=== PATIENT | female | born 1970 ===

== ENCOUNTER 2019-12-26 13:29 | Outpatient (REF) | payer OTHER, MEDICAID, SELFPAY | END 2019-12-26 13:30 | disposition home or self-care (01) | LOC: HO.LAB 13:29 | PROVIDERS: Visit Provider Internal Medicine | DX: Z20.828 Contact with and (suspected) exposure to other viral communicable diseases (principal) | CPT/HCPCS: U0003 ==

== ENCOUNTER → 2020-02-19 09:29 | Outpatient (BNVA) | payer OTHER, MEDICAID, SELFPAY | PROVIDERS: PCP Internal Medicine Geriatric Medicine; Visit Provider Anesthesiology | DX: Z76.89 Persons encountering health services in other specified circumstances (principal) ==

== ENCOUNTER 2020-03-05 06:15 | Outpatient (REF) | payer OTHER, MEDICARE, MEDICAID, SELFPAY ==
--- NOTE | 2020-03-05 08:22 | FL_ITS ---
EXAMINATION: XR FLUOROSCOPY WITH IMAGES CLINICAL INFORMATION: M46.1 - Sacroiliitis COMPARISON: None. TECHNIQUE: Fluoroscopy performed by Yumiko Oliver NP. Fluoroscopy time: 0.5 minutes DAP: 1.68 Gycm2 Images: 7 FINDINGS: There are spinal needles overlying outer aspect right L3-4 and L5 neural foramen with contrast in the nerve sheath. There are 2 spinal needles overlying the upper right sacral wing. FL/FL guidance in treatment room IMPRESSION: Fluoroscopy for pain management procedures.
== END 2020-03-05 06:16 | disposition home or self-care (01) ==
LOC: HO.RADIR 06:15
PROVIDERS: Visit Provider Anesthesiology
DX: M46.1 Sacroiliitis, not elsewhere classified (principal)
CPT/HCPCS: 64451; Q9967

== ENCOUNTER → 2020-03-14 09:26 | Outpatient (BNVA) | payer OTHER, MEDICAID, SELFPAY | PROVIDERS: PCP Internal Medicine Geriatric Medicine; Visit Provider Anesthesiology ==

== ENCOUNTER 2020-03-29 13:27 | Outpatient (RCR) | payer OTHER, MEDICAID, SELFPAY | END 2020-03-29 14:26 | disposition home or self-care (01) | LOC: HO.PAOS 13:27 | PROVIDERS: Referring Provider Anesthesiology; Visit Provider Counselor Mental Health | DX: F43.20 Adjustment disorder, unspecified (principal) | CPT/HCPCS: 90791 ==

== ENCOUNTER → 2020-04-15 13:50 | Outpatient (BNVA) | payer MEDICARE, MEDICAID, SELFPAY | PROVIDERS: PCP Internal Medicine Geriatric Medicine; Visit Provider Advanced Practice Midwife ==

== ENCOUNTER 2020-05-08 10:35 | Outpatient (REF) | payer MEDICARE, MEDICAID, SELFPAY ==
--- NOTE | ~2020-05-08 | US_ITS ---
EXAMINATION: ULTRASOUND PELVIS COMPLETE CLINICAL INFORMATION: Follow-up pulmonary mass. COMPARISON: None TECHNIQUE: Transabdominal and transvaginal ultrasound of the pelvis is performed. FINDINGS: The uterus is retroverted measuring 9.2 cm in length, 4.3 cm in AP and 5.1 cm in transverse dimension. The endometrial thickness is 0.6 cm. There are at least 3 hypoechoic lesions. 1. Lesion in the right lower uterine body measures 1.8 x 1.8 x 1.8 cm. Previously it measured 1.6 1.4 x 1.5 cm. 2. Lesion in the upper right uterine body measures 1.3 x 0.9 x 1.0 cm. Previously it measured 1.7 x 1.6 x 1.6 cm. 3. Lesion in the left body of the uterus measures 2.0 1.6 x 1.5 cm. Previously it measured 0.6 x 0.9 1.0 cm. There are several anechoic nabothian cysts in the cervix. The right ovary measures 3.2 x 2.3 x 1.6 cm and volume is 6.2 mL. The ovaries are unremarkable. Previously it measured 3.0 x 2.7 x 2.3 cm. The left ovary measures 6.4 x 3.2 x 3.0 cm and volume is 32.2 mL. There are 2 solid-appearing lesions. A 2.5 x 1.8 x 2.4 cm, 1.7 x 1.2 x 1.9 cm and a simple cyst measuring 2.7 x 2.0 x 2.1 cm. There is a corpus luteal cyst measuring 2.1 x 1.5 x 1.6 cm. There is small amount of free fluid in cul-de-sac. US/US pelvic complete IMPRESSION: Multiple uterine fibroids as described above with minimal increase in size of these fibroids. 2 solid lesions likely endometrioma/complex cysts, simple cyst and corpus luteal cyst left ovary.
== END 2020-05-08 10:36 | disposition home or self-care (01) ==
LOC: HO.US 10:35
PROVIDERS: Visit Provider Advanced Practice Midwife
DX: Z87.42 Personal history of other diseases of the female genital tract (principal)
CPT/HCPCS: 76830; 76856

== ENCOUNTER 2020-05-30 13:25 | Outpatient (REF) | payer MEDICARE, MEDICAID, SELFPAY ==
[2020-05-31 07:51] LABS: Follicle Stimulating Hormone 14.5 mIU/mL
== END 2020-05-30 13:26 | disposition home or self-care (01) ==
LOC: HO.LAB 13:25
PROVIDERS: PCP Internal Medicine Geriatric Medicine; Visit Provider Advanced Practice Midwife
DX: R10.2 Pelvic and perineal pain (principal); N95.1 Menopausal and female climacteric states; D21.9 Benign neoplasm of connective and other soft tissue, unspecified; Z71.2 Person consulting for explanation of examination or test findings
CPT/HCPCS: 36415; 83001; 99212

== ENCOUNTER 2020-08-02 05:59 | Day surgery (SDC) | payer MEDICARE, MEDICAID, SELFPAY ==
[2020-07-29 13:05] VITALS: BMI 27.4
--- NOTE | 2020-08-01 09:13 | P.CONAN_ITS ---
Documented by User: Yisel Collins 08/01/20 09:14 HPI - Anesthesia Eval Consult details Narrative: 50yo F for Right Peripheral Nerve Stimulator Trial PMFSH Active Problems Active Problems: All Active Problems (Updated 07/29/20 @ 13:09 by Zelda Valencia) Encounter to discuss test results (Acute) Fibroids (Acute) Pelvic pain in female (Acute) Migraine with aura (Acute) Chronic pain syndrome (Acute) Sacroiliitis (Acute) Low back pain (Acute) Spondylosis of lumbosacral spine without myelopathy (Acute) Past Medical History Medical History Anxiety Asthma Chronic pain syndrome Diabetes Endometrioma of ovary GERD (gastroesophageal reflux disease) Low back pain Migraine with aura Sacroiliitis Spondylosis of lumbosacral spine without myelopathy Vertigo Family History Family History Maternal Aunt Breast cancer Surgical History Surgical History Hx of section Hx of tubal ligation Social History Social History Household Members: Significant Other and Family Alcohol intake: never Patient Tobacco Use Status: Never used Tobacco Are you DNR?: No Advance Directives: No Advance Directives Information Provided: No Patient : No FDLMP: 07/05/2020 : No Poor oral hygiene: No Meds Allergies Allergy/AdvReac Type Severity Reaction Status Date / Time No Known Allergies Allergy Verified 07/29/20 13:09 [No Known Allergies*] Home Medications Medication Instructions Recorded Confirmed Last Taken Type glipizide 2.5 mg-metformin 500 mg 1 tab PO DAILY 04/15/20 07/29/20 Unknown History tablet loratadine 10 mg tablet 10 mg PO DAILY 04/15/20 07/29/20 Unknown History meclizine 25 mg tablet 25 mg PO TID PRN 04/15/20 07/29/20 Unknown History omeprazole 20 mg capsule,delayed 40 mg PO DAILY 04/15/20 07/29/20 Unknown History release pravastatin 40 mg tablet 40 mg PO DAILY 04/15/20 07/29/20 Unknown History tramadol 50 mg tablet 50 mg PO Q12H PRN 04/15/20 07/29/20 Unknown History albuterol sulfate INHALATION 07/29/20 Unknown History fluticasone propionate [Flovent 1 PO BID 07/29/20 Unknown History HFA] Exam Exam Date and Time: August 01, 2020912 Height,Weight and Vital Signs: Height 5 ft 2 in Weight 68.039 kg Assessment and Plan Assessment Anesthesia Assessment: Chart Reviewed Documented by User: Adrienne Vega 08/02/20 07:14 [facility] Past Medical History Medical History Anxiety Asthma Chronic pain syndrome Diabetes Endometrioma of ovary GERD (gastroesophageal reflux disease) Low back pain Migraine with aura Sacroiliitis Spondylosis of lumbosacral spine without myelopathy Vertigo Family History Family History Maternal Aunt Breast cancer Family history of problems with anesthesia: No Surgical History Surgical History Hx of section Hx of tubal ligation History of Problems with Anesthesia: No Social History Social History Household Members: Significant Other and Family Alcohol intake: never Patient Tobacco Use Status: Never used Tobacco Are you DNR?: No Advance Directives: No Advance Directives Information Provided: No Patient : No FDLMP: 07/05/2020 : No Poor oral hygiene: No Meds Allergies Allergy/AdvReac Type Severity Reaction Status Date / Time No Known Allergies Allergy Verified 07/29/20 13:09 [No Known Allergies*] Home Medications Medication Instructions Recorded Confirmed Last Taken Type glipizide 2.5 mg-metformin 500 mg 1 tab PO DAILY 04/15/20 07/29/20 Unknown History tablet loratadine 10 mg tablet 10 mg PO DAILY 04/15/20 07/29/20 Unknown History meclizine 25 mg tablet 25 mg PO TID PRN 04/15/20 07/29/20 Unknown History omeprazole 20 mg capsule,delayed 40 mg PO DAILY 04/15/20 07/29/20 Unknown History release pravastatin 40 mg tablet 40 mg PO DAILY 04/15/20 07/29/20 Unknown History tramadol 50 mg tablet 50 mg PO Q12H PRN 04/15/20 07/29/20 Unknown History albuterol sulfate INHALATION 07/29/20 Unknown History fluticasone propionate [Flovent 1 PO BID 07/29/20 Unknown History HFA] Exam Height,Weight and Vital Signs: Vital Signs Temp Pulse Resp BP Pulse Ox 08/02/20 06:25 97.4 F 68 16 117/68 98 Pertinent Lab Results Pertinent Lab Results: Lab Results 08/02/20 Range/Units 06:42 POC Glucose 157 H (60-115) mg/dL Airway Mallampati Class: II TM Dist: >3cm Neck ROM: Full Partial: Upper Loose/Missing/Broken Teeth: Yes (Broken molars bottom right) Heart: RRR Lungs: CTAB Assessment and Plan Assessment Anesthesia Assessment: Anesthesia Plan Discussed and Chart Reviewed Final Anesthetic Review NPO: Yes ASA Class: II Final Preanesthetic Review: No Changes in Pt Med Stat, Meds/Allgs Chart Reviewed, Consent Obtained/Reviewed and Anes Risks/Benef Reviewed Patient Risk: Low Procedure Risk: Low Assessment/Block/Sedation in SS: Assess/Block/Sedation-SS Anesthetic Plan Anesthetic Plan: MAC: Disposition: Standard PACU
--- NOTE | ~2020-08-02 | FL_ITS ---
EXAMINATION: XR FLUOROSCOPY WITH IMAGES CLINICAL INFORMATION: Peripheral nerve stimulator trial COMPARISON: None. TECHNIQUE: Fluoroscopy performed by Dr. Arben Hanson. Fluoroscopy time: 0.3 minutes DAP: 2.89 mGycm2 Images: 2 FINDINGS: The 2 digital images obtained of the lumbosacral junction. There is a solitary electrode extending in a craniocaudad direction inferiorly likely in the sacral canal. Visualized bones and the soft tissues are normal. FL/FL guidance in OR IMPRESSION: Fluoroscopy was provided to Dr. Arben Hanson during the procedure
[2020-08-02 06:25] VITALS: BP 117/68; PULSE 68; RESP 16; TEMP 36.3; O2SAT 98
[2020-08-02] MEDS: Lactated Ringers 1,000 ML 100 ML IVCONT (06:46)
[2020-08-02 06:49] LABS: Glucose, Whole Blood 157 mg/dL (60-115)
--- NOTE | 2020-08-02 07:16 | MHC.SHP ---
Pre-Procedural Eval Section A The patient is an INPATIENT: No Changes since office visit: Yes Patient answered all questions The History & Physical has been completed within 30 days and I have reviewed it.: No Section B Chief Complaint: Sacroiliitis Details of Present Illness: as above Relevant Family History (Specify if Yes): No Relevant Social History: None Present Medications: None History of Previous Operations: No relevant previous surgery Allergies: Allergies Allergy/AdvReac Type Severity Reaction Status Date / Time No Known Allergies Allergy Verified 07/29/20 13:09 [No Known Allergies*] Review of Systems Sugical H&P ROS: Negative: Constitution, Cardiovascular, Respiratory, Neurological, Psychiatric, Hem-Onc, Allergic/Immunologic, Gastrointestinal, Genitourinary, Musculoskeletal, Integumentary, Endocrine and Eyes/Ears/Nose/Throat Exam Surgical H&P Exam: Normal: HEENT, Normal: Heart, Normal: Lungs, Normal: Extremities, Normal: Abdomen, Normal: Skin and Normal: Neurological Plan Diagnosis/Plan: Unchanged I have reviewed the history and physical and performed a pertinent physical examination on my patient. No changes have occurred unless specified.
--- NOTE | 2020-08-02 07:17 | PM.OP ---
Brief Operative Note Date of Service: 08/02/20 Pre-op diagnosis: sacroilitis Post-op diagnosis: same Procedure: Trial of a stimwave SI joint innervation stimulation - Right Implants: none permanent Surgeon: Arben Hanson MD Anesthesia: MAC Was an Supervisor Electronics Testing used for this Procedure?: No Estimated blood loss (mL): 1 Condition: stable Disposition: PACU
--- NOTE | 2020-08-02 07:20 | P.OP_ITS ---
Operative Note Operative Note Date of Service: 08/02/20 Narrative: Informed consent was explained thoroughly to the patient. All questions about benefits and risks for the procedure were answered. Patient came to the operating room she was positioned prone on the operating table with the pillow under her pelvis. [employer] monitors were applied and patient was deeply sedated. Time out was performed delineated correct name and of the patient, site, side and nature of the procedure, risks of DVT and fire need for antibiotics. Her lower back and buttocks was prepped with ChloraPrep twice, and draped with sterile towels. Sterilely draped C-arm was brought over the operating field and sq picture of patient's pelvis was demonstrated on the screen. Attention was concentrated on the right SI joint. Significant instability of the right sacroiliac joint was again noted on the screen. Inflammatory reaction in the sacral and iliac bones alongside the margins of the joint evident of sacroiliac joint pathology were again seen on the screen. The sacral ala on the right was chosen as a target of the needle insertion. 3 cm above the sacral ala projection in the lumbar area injection of the local anesthetic was performed in the skin. Using 11 blade scalpel small verena in the skin was performed. 16 gauge introducer simwave malleable needle needle was inserted through the verena and advanced to were the sacral alae on the right. After needle met the bone on sacral ala it was redirected slightly posterior and continued to advance alongside the curvature of the sacral bone. When the tip of the needle reached the end of the projection of the sacroiliac joint inferiorly advancement stops and guitar wire was introduced into the needle. It went through the needle without difficulties. After that 8 electrode stimulating array lead was inserted through the needle and advanced to the desired position. The needle was removed and care was taken not to dislodge the leads. The driving stylet was removed from the lead and it was replaced with stimulating copper wire antenna electrode. After that the knot was tied just below the level of the 2nd antenna electrode. Mastisol was applied to the skin a and Steri-Strips was used to fix the stimulating lead to the skin. Sterile dressing applied stimulating pad was applied and taped to the skin using Medipore tape Upon completion of the procedure the patient was awaken she was taking outside of the operating room to recovery room where she recovered uneventfully. She went home without immediate complications.
[2020-08-02 08:27] VITALS: BP 117/71; PULSE 92; RESP 14; TEMP 36.2; O2SAT 100
[2020-08-02 08:44] VITALS: BP 130/75; PULSE 77; RESP 18; O2SAT 99
[2020-08-02 08:59] VITALS: BP 129/63; PULSE 71; RESP 17; O2SAT 100
== END 2020-08-02 09:47 | disposition home or self-care (01) ==
PROVIDERS: PCP Internal Medicine Geriatric Medicine; Visit Provider Anesthesiology
PROC: (CPT 64555; principal; 2020-08-02 07:30)
DX: M46.1 Sacroiliitis, not elsewhere classified (principal); G89.4 Chronic pain syndrome; M54.5 Low back pain
CPT/HCPCS: 64555; 82947; C1816; J0690; J1100; J2405

== ENCOUNTER 2020-08-06 12:29 | Outpatient (REF) | payer MEDICARE, MEDICAID, SELFPAY ==
--- NOTE | ~2020-08-06 | MM_ITS ---
EXAMINATION: MM SCREENING DIGITAL BREAST TOMOSYNTHESIS, BILATERAL CLINICAL INFORMATION: Screening. Asymptomatic. The lifetime risk of breast cancer based on the Tyrer-Cuzick Model is 9%. COMPARISON: Mammography: 09/13/2018, 08/05/2016, 06/18/2015, 08/02/2014 TECHNIQUE: Digital breast tomosynthesis is performed in both the craniocaudal and mediolateral oblique views along with computer-aided detection (CAD). Synthesized 2D images are generated from the tomosynthesis. FINDINGS: There are scattered areas of fibroglandular density (ACR BI-RADS breast composition Category b). Parenchymal pattern is similar to prior studies. There is no developing density or interval mass or architectural abnormality. No abnormal calcifications. Biopsy clip marker again noted anterior 12:30 o'clock left breast overlying stable circumscribed nodule. The axilla and skin contours are unremarkable. No significant changes. MM/MM tomosynthesis screening BI IMPRESSION: No mammographic evidence of malignancy. ASSESSMENT: BI-RADS 2: Benign RECOMMENDATION: Routine annual mammography screening. This patient's information was entered into a reminder system with a target due date for their next mammogram.
== END 2020-08-06 12:30 | disposition home or self-care (01) ==
LOC: HO.MAMMO 12:29
PROVIDERS: Visit Provider Internal Medicine Geriatric Medicine
DX: Z12.31 Encounter for screening mammogram for malignant neoplasm of breast (principal)
CPT/HCPCS: 77063; 77067

== ENCOUNTER → 2020-08-08 10:31 | Outpatient (BNVA) | payer MEDICARE, MEDICAID, SELFPAY | PROVIDERS: PCP Internal Medicine Geriatric Medicine; Visit Provider Anesthesiology | DX: M47.817 Spondylosis without myelopathy or radiculopathy, lumbosacral region (principal); M54.5 Low back pain; M46.1 Sacroiliitis, not elsewhere classified; G89.4 Chronic pain syndrome | CPT/HCPCS: 99212 ==

== ENCOUNTER → 2020-08-20 12:14 | Outpatient (BNVA) | payer MEDICARE, MEDICAID, SELFPAY | PROVIDERS: Visit Provider Advanced Practice Midwife | DX: Z30.011 Encounter for initial prescription of contraceptive pills (principal); N94.6 Dysmenorrhea, unspecified; D21.9 Benign neoplasm of connective and other soft tissue, unspecified; Z71.2 Person consulting for explanation of examination or test findings | CPT/HCPCS: Q3014 ==

== ENCOUNTER 2021-01-22 11:21 | Outpatient (REF) | payer MEDICARE, MEDICAID, SELFPAY ==
[2021-01-22 12:57] LABS: Hematocrit 38.5 % (37.0-47.0); Hemoglobin 12.2 g/dl (12.0-16.0); Mean Corpuscular HGB Conc 31.7 g/dl (31.0-35.0); Mean Corpuscular Hemoglobin 27.7 pg (27.0-33.0); Mean Corpuscular Volume 87.5 fL (80.0-98.0); Mean Platelet Volume 12.4 fL (9.4-12.3); Platelet Count 240 X10*3/uL (160-400); Red Cell Distribution Width 15.4 % (11.0-16.0); White Blood Count 6.6 X10*3/uL (4.8-10.8)
[2021-01-22 13:23] LABS: Alanine Aminotransferase 16 U/L (0-31); Albumin Level 3.8 g/dL (3.5-5.0); Alkaline Phosphatase 76 U/L (39-117); Anion Gap 15 (12-20); Aspartate Amino Transferase 16 U/L (5-31); Bilirubin Total 0.4 mg/dL (0.0-1.0); Blood Urea Nitrogen 10 mg/dL (9-16); Calcium 9.4 mg/dL (8.4-10.2); Carbon Dioxide 25 mmol/L (22-29); Chloride 103 mmol/L (96-108); Estimated Glomerular Filt Rate > 60; Glucose Random 282 mg/dL (60-115); Potassium 4.5 mmol/L (3.3-5.1); Sodium 138 mmol/L (135-145); Total Protein 7.3 g/dL (6.5-8.0)
[2021-01-22 13:43] LABS: TSH reflex Free T4 1.72 uIU/mL (0.32-4.0)
[2021-01-22 13:55] LABS: Folate 14.2 ng/mL (> or = 4.0); Vitamin B12 470 pg/mL (200-900)
[2021-01-27 14:51] LABS: Vitamin D 25-OH, D2 <4 ng/mL; Vitamin D 25-OH, D3 19 ng/mL; Vitamin D 25-OH, Total 19 ng/mL (30-100)
== END 2021-01-22 11:22 | disposition home or self-care (01) ==
LOC: HO.LAB 11:21
PROVIDERS: PCP Internal Medicine Geriatric Medicine; Referring Provider Internal Medicine Geriatric Medicine; Visit Provider Nurse Practitioner Family
DX: K58.1 Irritable bowel syndrome with constipation (principal); K59.04 Chronic idiopathic constipation; K21.9 Gastro-esophageal reflux disease without esophagitis; Z79.899 Other long term (current) drug therapy
CPT/HCPCS: 36415; 80053; 82306; 82607; 82746; 84443; 85027; 99202

== ENCOUNTER 2021-02-24 12:23 | Outpatient (REF) | payer MEDICARE, MEDICAID, SELFPAY | END 2021-02-24 12:24 | disposition home or self-care (01) | LOC: HO.LNP 12:23 | PROVIDERS: Visit Provider Nurse Practitioner Family | DX: K21.9 Gastro-esophageal reflux disease without esophagitis (principal) | CPT/HCPCS: 87338 ==

== ENCOUNTER → 2021-02-25 13:32 | Outpatient (BNVA) | payer MEDICARE, MEDICAID, SELFPAY | PROVIDERS: PCP Internal Medicine Geriatric Medicine; Referring Provider Internal Medicine Geriatric Medicine; Visit Provider Nurse Practitioner Family | DX: K58.2 Mixed irritable bowel syndrome (principal); K59.00 Constipation, unspecified; K21.9 Gastro-esophageal reflux disease without esophagitis | CPT/HCPCS: 99212 ==

== ENCOUNTER → 2021-04-01 12:54 | Outpatient (BNVA) | payer MEDICARE, MEDICAID, SELFPAY | PROVIDERS: PCP Internal Medicine Geriatric Medicine; Referring Provider Internal Medicine Geriatric Medicine; Visit Provider Nurse Practitioner Family | DX: Z12.11 Encounter for screening for malignant neoplasm of colon (principal); K58.2 Mixed irritable bowel syndrome; K59.01 Slow transit constipation; K21.9 Gastro-esophageal reflux disease without esophagitis | CPT/HCPCS: 99212 ==

== ENCOUNTER 2021-05-28 12:55 | Outpatient (REF) | payer MEDICARE, MEDICAID, SELFPAY ==
[2021-05-28 14:31] LABS: Hematocrit 39.2 % (37.0-47.0); Hemoglobin 12.7 g/dl (12.0-16.0); Mean Corpuscular HGB Conc 32.4 g/dl (31.0-35.0); Mean Corpuscular Hemoglobin 27.6 pg (27.0-33.0); Mean Corpuscular Volume 85.2 fL (80.0-98.0); Platelet Count 259 X10*3/uL (160-400); Red Cell Distribution Width 14.8 % (11.0-16.0); White Blood Count 8.1 X10*3/uL (4.8-10.8)
[2021-05-28 15:33] LABS: Thyroid Stimulating Hormone 1.74 uIU/mL (0.32-4.0)
[2021-05-29 03:59] LABS: CT PCR NOT DETECTED (Not Detect.); NG PCR NOT DETECTED (Not Detect.)
[2021-05-29 13:12] LABS: BV Int Neg Control Negative (Negative); BV Int Pos Control Positive (Positive)
[2021-05-30 02:41] LABS: Follicle Stimulating Hormone 58.1 mIU/mL
[2021-05-31 03:12] LABS: HPV mRNA E6/E7 rflx Not Detected (Not Detected)
== END 2021-05-28 12:56 | disposition home or self-care (01) ==
LOC: HO.LAB 12:55
PROVIDERS: PCP Internal Medicine Geriatric Medicine; Visit Provider Advanced Practice Midwife
DX: Z01.411 Encounter for gynecological examination (general) (routine) with abnormal findings (principal); Z11.51 Encounter for screening for human papillomavirus (HPV); N93.9 Abnormal uterine and vaginal bleeding, unspecified; Z20.2 Contact with and (suspected) exposure to infections with a predominantly sexual mode of transmission; R23.2 Flushing; N92.1 Excessive and frequent menstruation with irregular cycle
CPT/HCPCS: 36415; 83001; 84443; 85027; 87480; 87491; 87510; 87591; 87624; 87660; 88142

== ENCOUNTER 2021-06-19 10:52 | Outpatient (REF) | payer MEDICARE, MEDICAID, SELFPAY ==
--- NOTE | ~2021-06-19 | US_ITS ---
EXAMINATION: US PELVIS CLINICAL INFORMATION: Abnormal uterine and vaginal bleeding. COMPARISON: 05/08/2020 TECHNIQUE: Ultrasound of the pelvis is performed using both transabdominal and transvaginal transducers along with Doppler. Transvaginal imaging is performed due to inadequate visualization transabdominally. FINDINGS: Uterus: The uterus is retroverted and measures 8.9 x 3 x 3.9 cm. Nabothian cysts at the cervix. The double wall endometrial thickness is 0.3 mm. Trace fluid in the endometrial canal. The uterus is smooth in contour and has normal myometrial echogenicity. Multiple uterine fibroids are again noted. 1. Left body measuring 1.7 x 1.3 x 2 cm. This is hypoechoic. 2. Right fundal hypoechoic measuring 0.6 x 0.3 x 0.3 cm. 3. Lower uterine segment somewhat hyperechoic measuring 1.5 x 1.7 x 1.4 cm. Adnexa: Both ovaries are visualized. There is normal color flow to the adnexa. There is no ovarian torsion. There is no pelvic ascites or fluid collection. Normal arterial and venous spectral waveforms bilaterally. Right ovary measures 2.6 x 1.6 x 2.4 cm. Left ovary measures 4.4 x 2.3 x 2.9 cm. There are 2 cysts at the left ovary measuring 2.7 cm and 2.5 cm. These have internal echoes. No Doppler vascularity. The previous solid-appearing lesions are not visualized at this time. US/US pelvic and transvaginal IMPRESSION: No ovarian torsion. Uterine fibroids are again noted, likely without significant change from previous ultrasound. There are 2 left ovarian cysts again noted with internal echoes. No solid ovarian lesion seen at this time.
== END 2021-06-19 10:53 | disposition home or self-care (01) ==
LOC: HO.US 10:52
PROVIDERS: Visit Provider Advanced Practice Midwife
DX: N93.9 Abnormal uterine and vaginal bleeding, unspecified (principal)
CPT/HCPCS: 76830; 76856

== ENCOUNTER → 2021-06-30 13:20 | Outpatient (BNVA) | payer MEDICARE, MEDICAID, SELFPAY | PROVIDERS: PCP Internal Medicine Geriatric Medicine; Referring Provider Internal Medicine Geriatric Medicine; Visit Provider Nurse Practitioner Family | DX: Z12.11 Encounter for screening for malignant neoplasm of colon (principal); K21.9 Gastro-esophageal reflux disease without esophagitis; K59.01 Slow transit constipation; R13.10 Dysphagia, unspecified | CPT/HCPCS: 99212 ==

== ENCOUNTER 2021-09-09 12:34 | Outpatient (REF) | payer MEDICARE, MEDICAID, SELFPAY | END 2021-09-09 12:35 | disposition home or self-care (01) | LOC: HO.LAB 12:34 | PROVIDERS: PCP Internal Medicine Geriatric Medicine; Visit Provider Advanced Practice Midwife | DX: Z32.02 Encounter for pregnancy test, result negative (principal); N93.9 Abnormal uterine and vaginal bleeding, unspecified; N83.299 Other ovarian cyst, unspecified side; Z71.2 Person consulting for explanation of examination or test findings | CPT/HCPCS: 58100; 81025; 88305 ==

== ENCOUNTER 2021-09-19 13:32 | Outpatient (REF) | payer MEDICARE, MEDICAID, SELFPAY ==
--- NOTE | ~2021-09-19 | MR_ITS ---
EXAMINATION: MRI PELVIS WITH AND WITHOUT CONTRAST CLINICAL INFORMATION: Reason for Exam N83.299 - Other ovarian cyst, PAIN COMPARISON: Pelvic ultrasound 06/11/2021 TECHNIQUE: Multiple routine MRI sequences through the pelvis were obtained before and after the uneventful administration of 7 mL of Gadavist gadolinium-based IV contrast. FINDINGS: UTERUS: Retroverted uterus has a normal configuration and measures 4.7 x 4.5 x 5.2 cm ([id number] x anterior-posterior x transverse). Endometrium is uniform and measures 0.3 cm in thickness. No junctional zone thickening. Several T2 hypointense homogeneously enhancing subserosal and intramural myomas, the largest is a 2.6 cm myoma in the right aspect of the lower uterine segment. CERVIX: Nabothian cysts in the cervix. VAGINA: Unremarkable. OVARIES: The right ovary is unremarkable, 7:14. There is a multiloculated predominantly T1 hyperintense cystic lesion in the left ovary measuring overall 3.9 x 2.1 cm compatible with an endometrioma with a T2 hypointense shading sign. KIDNEYS: Two normally positioned kidneys are seen. No hydronephrosis. BLADDER: Unremarkable. PELVIC FREE FLUID: No free fluid or ascites. LYMPH NODES: No pathologically enlarged lymph nodes. OSSEOUS STRUCTURES: No acute or suspicious osseous abnormalities. MR/MR pelvis wo/w con IMPRESSION: A 3.9 cm left ovarian endometrioma. Several subserosal and intramural uterine myomas, the largest a 2.6 cm myoma in the right aspect of the lower uterine segment.
== END 2021-09-19 13:33 | disposition home or self-care (01) ==
LOC: HO.MRI 13:32
PROVIDERS: Visit Provider Advanced Practice Midwife
DX: N83.292 Other ovarian cyst, left side (principal); N80.1 Endometriosis of ovary
CPT/HCPCS: 72197; A9585

== ENCOUNTER → 2021-11-03 15:46 | Outpatient (BNVA) | payer MEDICARE, MEDICAID, SELFPAY | PROVIDERS: PCP Internal Medicine Geriatric Medicine; Visit Provider Anesthesiology | DX: G89.4 Chronic pain syndrome (principal); M54.50 Low back pain, unspecified; M47.817 Spondylosis without myelopathy or radiculopathy, lumbosacral region; M46.1 Sacroiliitis, not elsewhere classified | CPT/HCPCS: 99212 ==

== ENCOUNTER 2021-11-11 10:09 | Outpatient (REF) | payer MEDICARE, MEDICAID, SELFPAY ==
[2021-11-13 10:36] LABS: CA-125 37 U/mL (<35)
== END 2021-11-11 10:10 | disposition home or self-care (01) ==
LOC: HO.LAB 10:09
PROVIDERS: PCP Internal Medicine Geriatric Medicine; Visit Provider Advanced Practice Midwife
DX: N83.299 Other ovarian cyst, unspecified side (principal); N80.1 Endometriosis of ovary; Z71.2 Person consulting for explanation of examination or test findings
CPT/HCPCS: 36415; 86304; 99212

== ENCOUNTER 2021-11-14 10:22 | Day surgery (SDC) | payer MEDICARE, MEDICAID, SELFPAY ==
[2021-11-12 08:15] VITALS: BMI 27.8
--- NOTE | 2021-11-13 09:48 | HO.ANESPROP2 ---
Documented by User: Yisel Collins NP 11/13/21 09:49 HPI - Anesthesia Eval Consult details Narrative: 51yo F for Colonoscopy PMFSH Active Problems Active Problems: All Active Problems (Updated 11/12/21 @ 08:14 by Sury Salguero RN) Encounter to discuss test results (Acute) Fibroids (Acute) Pelvic pain in female (Acute) Dysmenorrhea (Acute) Complex ovarian cyst (Acute) Endometrioma of ovary (Acute) Migraine with aura (Acute) Chronic pain syndrome (Acute) Sacroiliitis (Acute) Low back pain (Acute) Spondylosis of lumbosacral spine without myelopathy (Acute) Past Medical History Medical History Anxiety Asthma Chronic pain syndrome Diabetes Endometrioma of ovary GERD (gastroesophageal reflux disease) Low back pain Migraine with aura S/P placement of nerve stimulator Sacroiliitis Spondylosis of lumbosacral spine without myelopathy Vertigo Family History Family History Maternal Aunt Breast cancer Family history of problems with anesthesia: No Surgical History Surgical History History of esophagogastroduodenoscopy (EGD) Hx of section Hx of tubal ligation History of Problems with Anesthesia: No Social History Social History Household Members: Significant Other and Family Are you a primary patient care specialist to a significant other at home: No Do you presently have visiting nurse or other home services: No Alcohol intake: never Patient Tobacco Use Status: Never used Tobacco Use of substances other than those prescribed or required for medical reasons: No Have you been hit, kicked, punched, or otherwise hurt by someone within the past year? If so, by whom?: No Are you DNR?: No Advance Directives: No Advance Directives Information Provided: Yes Recently lost weight without trying: No Nutrition Risks: No Nutritional Risk Patient : No Meds Allergies Allergy/AdvReac Type Severity Reaction Status Date / Time No Known Allergies Allergy Verified 11/11/21 09:47 [No Known Allergies*] Home Medications Medication Instructions Recorded Confirmed Last Taken Type glipizide 2.5 mg-metformin 500 mg 1 tab PO DAILY 04/15/20 07/29/20 Unknown History tablet loratadine 10 mg tablet 10 mg PO DAILY 04/15/20 07/29/20 Unknown History meclizine 25 mg tablet 25 mg PO TID PRN Vertigo 04/15/20 07/29/20 Unknown History tramadol 50 mg tablet 50 mg PO Q12H PRN Pain 04/15/20 07/29/20 Unknown History albuterol sulfate 90 mcg/actuation inhalation 07/29/20 Unknown History aerosol inhaler fluticasone propionate 110 1 PO BID 07/29/20 Unknown History mcg/actuation HFA aerosol inhaler (Flovent HFA) blood sugar diagnostic (OneTouch #10 ea 01/22/21 Unknown History Ultra Test strips) ferrous sulfate 325 mg (65 mg 325 mg PO DAILY 01/22/21 Unknown History iron) tablet fluticasone propionate 50 spray intranasal 01/22/21 Unknown History mcg/actuation nasal spray,suspension hydroxyzine HCl 25 mg tablet 25 mg PO DAILY 02/25/21 Unknown History naproxen 500 mg tablet 500 mg PO BID 06/30/21 Unknown History Exam Exam Date and Time: November 13, 2021 0948 Height,Weight and Vital Signs: Height 5 ft 2 in Weight 68.946 kg Assessment and Plan Assessment Anesthesia Assessment: Chart Reviewed Final Anesthetic Review Family History of Problems with Anesthesia: No History of Problems with Anesthesia: No Documented by User: Aidee Ontiveros MD 11/14/21 11:28 [facility] Past Medical History Medical History Anxiety Asthma Chronic pain syndrome Diabetes Endometrioma of ovary GERD (gastroesophageal reflux disease) Low back pain Migraine with aura S/P placement of nerve stimulator Sacroiliitis Spondylosis of lumbosacral spine without myelopathy Vertigo Family History Family History Maternal Aunt Breast cancer Surgical History Surgical History History of esophagogastroduodenoscopy (EGD) Hx of section Hx of tubal ligation Social History Social History Household Members: Significant Other and Family Are you a primary patient care specialist to a significant other at home: No Do you presently have visiting nurse or other home services: No Alcohol intake: never Patient Tobacco Use Status: Never used Tobacco Use of substances other than those prescribed or required for medical reasons: No Have you been hit, kicked, punched, or otherwise hurt by someone within the past year? If so, by whom?: No Are you DNR?: No Advance Directives: No Advance Directives Information Provided: Yes Recently lost weight without trying: No Nutrition Risks: No Nutritional Risk Patient : No Meds Allergies Allergy/AdvReac Type Severity Reaction Status Date / Time No Known Allergies Allergy Verified 11/11/21 09:47 [No Known Allergies*] Home Medications Medication Instructions Recorded Confirmed Last Taken Type glipizide 2.5 mg-metformin 500 mg 1 tab PO DAILY 04/15/20 07/29/20 Unknown History tablet loratadine 10 mg tablet 10 mg PO DAILY 04/15/20 07/29/20 Unknown History meclizine 25 mg tablet 25 mg PO TID PRN Vertigo 04/15/20 07/29/20 Unknown History tramadol 50 mg tablet 50 mg PO Q12H PRN Pain 04/15/20 07/29/20 Unknown History albuterol sulfate 90 mcg/actuation inhalation 07/29/20 Unknown History aerosol inhaler fluticasone propionate 110 1 PO BID 07/29/20 Unknown History mcg/actuation HFA aerosol inhaler (Flovent HFA) blood sugar diagnostic (OneTouch #10 ea 01/22/21 Unknown History Ultra Test strips) ferrous sulfate 325 mg (65 mg 325 mg PO DAILY 01/22/21 Unknown History iron) tablet fluticasone propionate 50 spray intranasal 01/22/21 Unknown History mcg/actuation nasal spray,suspension hydroxyzine HCl 25 mg tablet 25 mg PO DAILY 02/25/21 Unknown History naproxen 500 mg tablet 500 mg PO BID 06/30/21 Unknown History Exam Airway Mallampati Class: II TM Dist: >3cm Neck ROM: Full Partial: Upper Heart: rrr Lungs: cta Assessment and Plan Assessment Anesthesia Assessment: Anesthesia Plan Discussed and Chart Reviewed Final Anesthetic Review NPO: Yes ASA Class: II Final Preanesthetic Review: No Changes in Pt Med Stat, Meds/Allgs Chart Reviewed and Consent Obtained/Reviewed Patient Risk: Intermediate Procedure Risk: Intermediate Anesthetic Plan Anesthetic Plan: MAC: Disposition: Standard PACU
[2021-11-14 11:04] LABS: Glucose, Whole Blood 159 mg/dL (60-115)
[2021-11-14 11:12] VITALS: BP 156/71; PULSE 78; RESP 18; TEMP 37.1; O2SAT 100
[2021-11-14] MEDS: Lactated Ringers 1,000 ML 100 ML IVCONT (11:36)
--- NOTE | 2021-11-14 11:44 | HO.ANESPROP2 ---
COUNTS INCLUDE 234 BEDS AT THE [facility] Active Problems Active Problems: All Active Problems (Updated 11/12/21 @ 08:14 by Sury Salguero RN) Encounter to discuss test results (Acute) Fibroids (Acute) Pelvic pain in female (Acute) Dysmenorrhea (Acute) Complex ovarian cyst (Acute) Endometrioma of ovary (Acute) Migraine with aura (Acute) Chronic pain syndrome (Acute) Sacroiliitis (Acute) Low back pain (Acute) Spondylosis of lumbosacral spine without myelopathy (Acute) Past Medical History Medical History Anxiety Asthma Chronic pain syndrome Diabetes Endometrioma of ovary GERD (gastroesophageal reflux disease) Low back pain Migraine with aura S/P placement of nerve stimulator Sacroiliitis Spondylosis of lumbosacral spine without myelopathy Vertigo Family History Family History Maternal Aunt Breast cancer Family history of problems with anesthesia: No Surgical History Surgical History History of esophagogastroduodenoscopy (EGD) Hx of section Hx of tubal ligation History of Problems with Anesthesia: No Social History Social History Household Members: Significant Other and Family Are you a primary healthcare market consultant to a significant other at home: No Do you presently have visiting nurse or other home services: No Alcohol intake: never Patient Tobacco Use Status: Never used Tobacco Use of substances other than those prescribed or required for medical reasons: No Have you been hit, kicked, punched, or otherwise hurt by someone within the past year? If so, by whom?: No Are you DNR?: No Advance Directives: No Advance Directives Information Provided: Yes Recently lost weight without trying: No Nutrition Risks: No Nutritional Risk Patient : No Meds Allergies Allergy/AdvReac Type Severity Reaction Status Date / Time No Known Allergies Allergy Verified 11/11/21 09:47 [No Known Allergies*] Active Medications: Current Medications Albuterol Sulfate (Albuterol Sulfate (0.083%) 2.5 Mg/3 Ml Vial.Neb) 2.5 mg INHALE ONCE PRN PRN Reason: Shortness of Breath/Wheezing Lactated Ringer's (Lr) 1,000 mls @ 100 mls/hr IVCONT .Q10H RAKESH Last Admin: 11/14/21 11:36 Dose: 100 mls/hr Home Medications Medication Instructions Recorded Confirmed Last Taken Type glipizide 2.5 mg-metformin 500 mg 1 tab PO DAILY 04/15/20 07/29/20 Unknown History tablet loratadine 10 mg tablet 10 mg PO DAILY 04/15/20 07/29/20 Unknown History meclizine 25 mg tablet 25 mg PO TID PRN Vertigo 04/15/20 07/29/20 Unknown History tramadol 50 mg tablet 50 mg PO Q12H PRN Pain 04/15/20 07/29/20 Unknown History albuterol sulfate 90 mcg/actuation inhalation 07/29/20 Unknown History aerosol inhaler fluticasone propionate 110 1 PO BID 07/29/20 Unknown History mcg/actuation HFA aerosol inhaler (Flovent HFA) blood sugar diagnostic (OneTouch #10 ea 01/22/21 Unknown History Ultra Test strips) ferrous sulfate 325 mg (65 mg 325 mg PO DAILY 01/22/21 Unknown History iron) tablet fluticasone propionate 50 spray intranasal 01/22/21 Unknown History mcg/actuation nasal spray,suspension hydroxyzine HCl 25 mg tablet 25 mg PO DAILY 02/25/21 Unknown History naproxen 500 mg tablet 500 mg PO BID 06/30/21 Unknown History Exam Exam Date and Time: November 14, 2021 1144 Height,Weight and Vital Signs: Height 5 ft 2 in Weight 68.946 kg Last Vital Signs Temp 98.8 F 11/14/21 11:12 Pulse 78 11/14/21 11:12 Resp 18 11/14/21 11:12 BP 156/71 H 11/14/21 11:12 Pulse Ox 100 11/14/21 11:12 O2 Del Method 11/14/21 11:12 Pertinent Lab Results Pertinent Lab Results: Laboratory Tests 11/14/21 11:01 POC Glucose 159 H Airway Mallampati Class: II TM Dist: >3cm Neck ROM: Full Partial: Upper Heart: rrr Lungs: cta Assessment and Plan Assessment Anesthesia Assessment: Anesthesia Plan Discussed and Chart Reviewed Final Anesthetic Review Family History of Problems with Anesthesia: No History of Problems with Anesthesia: No NPO: Yes ASA Class: III and Emergency Final Preanesthetic Review: No Changes in Pt Med Stat, Meds/Allgs Chart Reviewed and Consent Obtained/Reviewed Patient Risk: Intermediate Procedure Risk: Intermediate Anesthetic Plan Anesthetic Plan: MAC: Disposition: Standard PACU
--- NOTE | 2021-11-14 12:27 | MHC.SHP ---
Pre-Procedural Eval Section A Date of Service: 11/14/21 The patient is an INPATIENT: No The History & Physical has been completed within 30 days and I have reviewed it.: No Section B Chief Complaint: Slow transit constipation,screening Details of Present Illness: Colon cancer screening, chronic constipation Relevant Family History (Specify if Yes): No Relevant Social History: None Present Medications: see Short Stay Collaborative assessment Medical History: Significant History (Anxiety Asthma Chronic pain syndrome Diabetes Endometrioma of ovary GERD (gastroesophageal reflux disease) Low back pain Migraine with aura Sacroiliitis Spondylosis of lumbosacral spine without myelopathy Vertigo) History of Previous Operations: Relevant previous surgery/procedure and date(s) (History of esophagogastroduodenoscopy (EGD) Hx of section Hx of tubal ligation) Allergies: Allergies Allergy/AdvReac Type Severity Reaction Status Date / Time No Known Allergies Allergy Verified 11/11/21 09:47 [No Known Allergies*] Review of Systems Sugical H&P ROS: Negative: Constitution, Cardiovascular and Respiratory and Yes, Specify: Gastrointestinal (constipation) Exam Surgical H&P Exam: Normal: Heart, Normal: Lungs and Normal: Abdomen Plan Diagnosis/Plan: Unchanged I have reviewed the history and physical and performed a pertinent physical examination on my patient. No changes have occurred unless specified.
--- NOTE | 2021-11-14 12:30 | P.BOP_ITS ---
Brief Operative Note Date of Service: 11/14/21 Pre-op diagnosis: Colon cancer screening, chronic constipation Post-op diagnosis: other (Diverticulosis, hemorrhoids) Procedure: COLONOSCOPY TILL CECUM Consent: Indications for the procedure and potential complications of bleeding, perforation, reaction to medications and missed diagnosis were discussed with the patient and informed consent was obtained. Instrument: Olympus PCF H 190 L variable stiffness pediatric colonoscope Monitoring: Vital signs and clinical assessment, intermittent blood pressure monitoring, continuous EKG monitoring, Pulse oximetry and Carbon Dioxide monitoring were done throughout the procedure. Colon withdrawl time was 20 minutes. Procedure: The patient was placed in the left lateral decubitis position and pre-procedure medications were administered. After a digital rectal examination of the ano-rectum, the video colonoscope was inserted into the rectum and advanced through the colon to the cecum. The colonoscope was slowly withdrawn in a retrograde panoramic fashion and the colon mucosa was carefully examined including a retroflexed view of the rectum. Findings and interventions are described below. Procedure Difficulty: Without difficulty Findings: Terminal Ileum: Not evaluated Cecum: Normal Ascending Colon: Normal Transverse Colon: Normal Descending Colon: Normal Sigmoid Colon: Moderate diverticulosis Rectum: Normal Ano-rectum: Moderate internal hemorrhoids Colon preparation: Good after copious irrigation and fair in some areas of the colon Impression and Post Procedure Diagnosis: Colonoscopy Findings: No polyps were detected. Moderate diverticulosis seen in the sigmoid colon Moderate hemorrhoids on retroflexed exam. Plan: Await pathology results Patient has an appointment on 12/12/21 in the [facility] with Nicole Tran FNP-BC. Repeat Colonoscopy in 5 years due to fair prep Above findings were reviewed with the patient and diverticulosis handout was given in the discharge area Surgeon: Iliana Irwin MD Anesthesia: MAC Was an Balance Screwhead Polisher used for this Procedure?: Yes Balance Screwhead Polisher: Brooklyn Hendricks Estimated blood loss (mL): 0 Pathology: none sent Condition: stable Disposition: PACU
--- NOTE | 2021-11-14 13:07 | W.PM.OPN ---
Operative Note Operative Note Date of Service: 11/14/21 Narrative: Pre-op diagnosis: Colon cancer screening, chronic constipation Post-op diagnosis:?other (Diverticulosis, hemorrhoids) Procedure: COLONOSCOPY TILL CECUM Consent: Indications for the procedure and potential complications of bleeding, perforation, reaction to medications and missed diagnosis were discussed with the patient and informed consent was obtained. Instrument: Olympus PCF H 190 L variable stiffness pediatric colonoscope Monitoring: Vital signs and clinical assessment, intermittent blood pressure monitoring, continuous EKG monitoring, Pulse oximetry and Carbon Dioxide monitoring were done throughout the procedure. Colon withdrawl time was 20 minutes. Procedure: The patient was placed in the left lateral decubitis position and pre-procedure medications were administered. After a digital rectal examination of the ano-rectum, the video colonoscope was inserted into the rectum and advanced through the colon to the cecum. The colonoscope was slowly withdrawn in a retrograde panoramic fashion and the colon mucosa was carefully examined including a retroflexed view of the rectum. Findings and interventions are described below. Procedure Difficulty: Without difficulty Findings: Terminal Ileum: Not evaluated Cecum:? Normal Ascending Colon:? Normal Transverse Colon:? Normal Descending Colon:? Normal Sigmoid Colon:? Moderate diverticulosis Rectum:? Normal Ano-rectum:? Moderate internal hemorrhoids Colon preparation:? Good after copious irrigation and fair in some areas of the colon Impression and Post Procedure Diagnosis: Colonoscopy Findings: No polyps were detected. Moderate diverticulosis seen in the sigmoid colon Moderate hemorrhoids on retroflexed exam. Plan: Await pathology results Patient has an appointment on 12/12/21 in the GI Clinic with Nicole Tran FNP-BC. Repeat Colonoscopy in 5 years due to fair prep Diverticulosis handout was given in the discharge area Surgeon: Iliana Irwin MD Anesthesia:?MAC Was an Operations Intern used for this Procedure?:?Yes Operations Intern:?Brooklyn Hendricks Estimated blood loss (mL):?0 Pathology:?none sent Condition:?stable Disposition:?PACU
[2021-11-14 13:10] VITALS: BP 117/59; PULSE 60; RESP 16; TEMP 36.7; O2SAT 99
[2021-11-14 13:25] VITALS: BP 119/67; PULSE 61; RESP 16; TEMP 36.7; O2SAT 98
== END 2021-11-14 14:30 | disposition home or self-care (01) ==
PROVIDERS: PCP Internal Medicine Geriatric Medicine; Visit Provider Internal Medicine Gastroenterology
PROC: 0DJD8ZZ Inspection of Lower Intestinal Tract, Via Natural or Artificial Opening Endoscopic (ICD-10-PCS; CPT 45378; principal; 2021-11-14 11:40)
DX: Z12.11 Encounter for screening for malignant neoplasm of colon (principal); K59.01 Slow transit constipation; K57.30 Diverticulosis of large intestine without perforation or abscess without bleeding; K64.8 Other hemorrhoids; K21.9 Gastro-esophageal reflux disease without esophagitis; E11.9 Type 2 diabetes mellitus without complications; J45.909 Unspecified asthma, uncomplicated; G43.109 Migraine with aura, not intractable, without status migrainosus; R42 Dizziness and giddiness; F41.1 Generalized anxiety disorder
CPT/HCPCS: G0121; 82947

== ENCOUNTER 2021-12-03 12:45 | Outpatient (REF) | payer MEDICARE, MEDICAID, SELFPAY ==
--- NOTE | ~2021-12-03 | MR_ITS ---
EXAMINATION: MRI PELVIS WITH AND WITHOUT CONTRAST CLINICAL INFORMATION: Reason for Exam N80.1 - Endometriosis of ovary COMPARISON: MR pelvis 09/19/2021 TECHNIQUE: Multiple routine MRI sequences through the pelvis were obtained before and after the uneventful administration of 7 mL of Gadavist gadolinium-based IV contrast. FINDINGS: UTERUS: Retroverted uterus has a normal configuration and measures 7.9 x 4.6 x 5.3 cm ([id number] x anterior-posterior x transverse). Endometrium is uniform and measures 0.4 cm in thickness. Junctional zone is normal in signal and thickness. Several uterine myomas are again seen, of note a a 2.3 cm myoma in the right fundus of the uterus and a 1.5 cm myoma in the right fundus of the uterus appeared to both demonstrate a less than 50% submucosal component. CERVIX: Nabothian cysts in the cervix. VAGINA: Unremarkable. OVARIES: Right ovary is unremarkable. The left ovary is remarkable for a multiloculated 3.6 x 2.3 cm lesion with intrinsically T2 hyperintense cystic components and intrinsically T1 hyperintense components T2 hypointense shading sign compatible with an endometrioma, previously 3.3 x 2.5 cm. KIDNEYS: Two normally positioned kidneys are seen. No hydronephrosis. BLADDER: Unremarkable. PELVIC FREE FLUID: No free fluid or ascites. LYMPH NODES: No pathologically enlarged lymph nodes. OSSEOUS STRUCTURES: No acute or suspicious osseous abnormalities. Tiny fat-containing right inguinal hernia. MR/MR pelvis wo/w con IMPRESSION: 1. The left ovary is remarkable for a 3.6 cm multiloculated lesion with intrinsically T2 hyperintense cystic components and intrinsically T1 hyperintense components T2 hypointense shading sign compatible with an endometrioma, not significantly changed in volume. 2. Several uterine myomas are again seen, with a 2.3 cm myoma in the right fundus of the uterus and a 1.5 cm myoma in the right fundus of the uterus which both demonstrate a less than 50% submucosal component.
== END 2021-12-03 12:46 | disposition home or self-care (01) ==
LOC: HO.MRI 12:45
PROVIDERS: Visit Provider Advanced Practice Midwife
DX: N80.109 Endometriosis of ovary, unspecified side, unspecified depth (principal)
CPT/HCPCS: 72197; A9585

== ENCOUNTER 2021-12-11 11:50 | Day surgery (SDC) | payer MEDICARE, MEDICAID, SELFPAY ==
--- NOTE | 2021-12-10 09:18 | P.CONAN_ITS ---
Documented by User: Yisel Collins NP 12/10/21 09:20 HPI - Anesthesia Eval Consult details Narrative: 51yo F for Right Diagnostic Sacroiliac Joint Innervation Injection PMFSH Active Problems Active Problems: All Active Problems (Updated 12/05/21 @ 13:24 by Natacha Vogt, RN) Encounter to discuss test results (Acute) Fibroids (Acute) Pelvic pain in female (Acute) Dysmenorrhea (Acute) Complex ovarian cyst (Acute) Endometrioma of ovary (Acute) Migraine with aura (Acute) Chronic pain syndrome (Acute) Sacroiliitis (Acute) Low back pain (Acute) Spondylosis of lumbosacral spine without myelopathy (Acute) Past Medical History Medical History Anxiety Asthma Chronic pain syndrome Diabetes Diverticulosis Endometrioma of ovary GERD (gastroesophageal reflux disease) Low back pain Migraine with aura S/P placement of nerve stimulator Sacroiliitis Spondylosis of lumbosacral spine without myelopathy Vertigo Family History Family History Maternal Aunt Breast cancer Family history of problems with anesthesia: No Surgical History Surgical History (Updated 12/05/21 @ 13:24 by Natacha Vogt RN) History of esophagogastroduodenoscopy (EGD) Hx of section Hx of colonoscopy Hx of tubal ligation History of Problems with Anesthesia: No Social History Social History Household Members: Significant Other and Family Are you a primary rn care transition to a significant other at home: No Do you presently have visiting nurse or other home services: No Alcohol intake: never Patient Tobacco Use Status: Former Tobacco user Tobacco use type: Cigarette Use of substances other than those prescribed or required for medical reasons: No Are you DNR?: No Advance Directives: No Advance Directives Information Provided: Yes Patient : No Meds Allergies Allergy/AdvReac Type Severity Reaction Status Date / Time No Known Allergies Allergy Verified 12/05/21 13:25 [No Known Allergies*] Home Medications Medication Instructions Recorded Confirmed Last Taken Type glipizide 2.5 mg-metformin 500 mg 1 tab PO DAILY 04/15/20 12/05/21 Unknown History tablet loratadine 10 mg tablet 10 mg PO DAILY 04/15/20 12/05/21 Unknown History meclizine 25 mg tablet 25 mg PO TID PRN Vertigo 04/15/20 12/05/21 Unknown History tramadol 50 mg tablet 50 mg PO Q12H PRN Pain 04/15/20 12/05/21 Unknown History albuterol sulfate 90 mcg/actuation inhalation 07/29/20 Unknown History aerosol inhaler fluticasone propionate 110 1 PO BID 07/29/20 Unknown History mcg/actuation HFA aerosol inhaler (Flovent HFA) blood sugar diagnostic (OneTouch #10 ea 01/22/21 Unknown History Ultra Test strips) ferrous sulfate 325 mg (65 mg 325 mg PO DAILY 01/22/21 12/05/21 Unknown History iron) tablet fluticasone propionate 50 spray intranasal 01/22/21 Unknown History mcg/actuation nasal spray,suspension hydroxyzine HCl 25 mg tablet 25 mg PO DAILY 02/25/21 12/05/21 Unknown History naproxen 500 mg tablet 500 mg PO BID 06/30/21 12/05/21 Unknown History Exam Exam Date and Time: December 10, 202118 Assessment and Plan Assessment Anesthesia Assessment: Chart Reviewed Final Anesthetic Review Family History of Problems with Anesthesia: No History of Problems with Anesthesia: No Documented by User: Lakesha Gamez MD 12/11/21 13:59 [facility] Past Medical History Medical History Anxiety Asthma Chronic pain syndrome Diabetes Diverticulosis Endometrioma of ovary GERD (gastroesophageal reflux disease) Low back pain Migraine with aura S/P placement of nerve stimulator Sacroiliitis Spondylosis of lumbosacral spine without myelopathy Vertigo Functional capacity: independent ambulation Patient : No Family History Family History Maternal Aunt Breast cancer Surgical History Surgical History (Updated 12/05/21 @ 13:24 by Natacha Vogt RN) History of esophagogastroduodenoscopy (EGD) Hx of section Hx of colonoscopy Hx of tubal ligation Social History Social History Household Members: Significant Other and Family Are you a primary rn care transition to a significant other at home: No Do you presently have visiting nurse or other home services: No Alcohol intake: never Patient Tobacco Use Status: Former Tobacco user Tobacco use type: Cigarette Use of substances other than those prescribed or required for medical reasons: No Are you DNR?: No Advance Directives: No Advance Directives Information Provided: Yes Patient : No Meds Allergies Allergy/AdvReac Type Severity Reaction Status Date / Time No Known Allergies Allergy Verified 12/05/21 13:25 [No Known Allergies*] Home Medications Medication Instructions Recorded Confirmed Last Taken Type glipizide 2.5 mg-metformin 500 mg 1 tab PO DAILY 04/15/20 12/05/21 Unknown History tablet loratadine 10 mg tablet 10 mg PO DAILY 04/15/20 12/05/21 Unknown History meclizine 25 mg tablet 25 mg PO TID PRN Vertigo 04/15/20 12/05/21 Unknown History tramadol 50 mg tablet 50 mg PO Q12H PRN Pain 04/15/20 12/05/21 Unknown History albuterol sulfate 90 mcg/actuation inhalation 07/29/20 Unknown History aerosol inhaler fluticasone propionate 110 1 PO BID 07/29/20 Unknown History mcg/actuation HFA aerosol inhaler (Flovent HFA) blood sugar diagnostic (OneTouch #10 ea 01/22/21 Unknown History Ultra Test strips) ferrous sulfate 325 mg (65 mg 325 mg PO DAILY 01/22/21 12/05/21 Unknown History iron) tablet fluticasone propionate 50 spray intranasal 01/22/21 Unknown History mcg/actuation nasal spray,suspension hydroxyzine HCl 25 mg tablet 25 mg PO DAILY 02/25/21 12/05/21 Unknown History naproxen 500 mg tablet 500 mg PO BID 06/30/21 12/05/21 Unknown History Documented by User: Lloyd Gamez MD 12/11/21 14:30 [facility] Past Medical History Medical History Anxiety Asthma Chronic pain syndrome Diabetes Diverticulosis Endometrioma of ovary GERD (gastroesophageal reflux disease) Low back pain Migraine with aura S/P placement of nerve stimulator Sacroiliitis Spondylosis of lumbosacral spine without myelopathy Vertigo Family History Family History Maternal Aunt Breast cancer Surgical History Surgical History (Updated 12/05/21 @ 13:24 by Natacha Vogt RN) History of esophagogastroduodenoscopy (EGD) Hx of section Hx of colonoscopy Hx of tubal ligation Social History Social History Household Members: Significant Other and Family Are you a primary rn care transition to a significant other at home: No Do you presently have visiting nurse or other home services: No Alcohol intake: never Patient Tobacco Use Status: Former Tobacco user Tobacco use type: Cigarette Use of substances other than those prescribed or required for medical reasons: No Are you DNR?: No Advance Directives: No Advance Directives Information Provided: Yes Patient : No Meds Allergies Allergy/AdvReac Type Severity Reaction Status Date / Time No Known Allergies Allergy Verified 12/05/21 13:25 [No Known Allergies*] Home Medications Medication Instructions Recorded Confirmed Last Taken Type glipizide 2.5 mg-metformin 500 mg 1 tab PO DAILY 04/15/20 12/05/21 Unknown History tablet loratadine 10 mg tablet 10 mg PO DAILY 04/15/20 12/05/21 Unknown History meclizine 25 mg tablet 25 mg PO TID PRN Vertigo 04/15/20 12/05/21 Unknown History tramadol 50 mg tablet 50 mg PO Q12H PRN Pain 04/15/20 12/05/21 Unknown History albuterol sulfate 90 mcg/actuation inhalation 07/29/20 Unknown History aerosol inhaler fluticasone propionate 110 1 PO BID 07/29/20 Unknown History mcg/actuation HFA aerosol inhaler (Flovent HFA) blood sugar diagnostic (OneTouch #10 ea 01/22/21 Unknown History Ultra Test strips) ferrous sulfate 325 mg (65 mg 325 mg PO DAILY 01/22/21 12/05/21 Unknown History iron) tablet fluticasone propionate 50 spray intranasal 01/22/21 Unknown History mcg/actuation nasal spray,suspension hydroxyzine HCl 25 mg tablet 25 mg PO DAILY 02/25/21 12/05/21 Unknown History naproxen 500 mg tablet 500 mg PO BID 06/30/21 12/05/21 Unknown History Exam Airway Mallampati Class: II TM Dist: >3cm Neck ROM: Full Assessment and Plan Assessment Anesthesia Assessment: Anesthesia Plan Discussed Final Anesthetic Review NPO: Yes ASA Class: II Final Preanesthetic Review: No Changes in Pt Med Stat, Meds/Allgs Chart Reviewed, Consent Obtained/Reviewed and Anes Risks/Benef Reviewed Patient Risk: Low Procedure Risk: Low Anesthetic Plan Anesthetic Plan: MAC: Disposition: Standard PACU
--- NOTE | ~2021-12-11 | FL_ITS ---
EXAMINATION: XR FLUOROSCOPY WITH IMAGES CLINICAL INFORMATION: Diagnostic SI joint injection. COMPARISON: MR pelvis 12/03/2021 TECHNIQUE: Fluoroscopy performed by Dr. Arben Hanson. Fluoroscopy time: 0.4 minutes. Cumulative Dose: 4.12 mGy. DAP: 1.12 Gycm2. Images: 6. FINDINGS: There are several spinal needles in various positions overlying the right sacral wing. There is contrast present without vascular communication. Some contrast appears to be intra-articular. FL/FL guidance in OR IMPRESSION: Fluoroscopy for pain management procedure.
[2021-12-11 12:19] VITALS: BMI 28.3
[2021-12-11 12:28] VITALS: BP 131/77; PULSE 76; RESP 16; TEMP 36.5; O2SAT 98
[2021-12-11] MEDS: Lactated Ringers 1,000 ML 100 ML IVCONT (12:43)
[2021-12-11 12:48] LABS: Glucose, Whole Blood 135 mg/dL (60-115)
--- NOTE | 2021-12-11 14:22 | MHC.SHP ---
Pre-Procedural Eval Section A Date of Service: 12/11/21 Section B Chief Complaint: Sacroiliitis, not elsewhere classified Details of Present Illness: as above Relevant Family History (Specify if Yes): No Relevant Social History: None Present Medications: see Short Stay Collaborative assessment Medical History: No relevant PMH History of Previous Operations: No relevant previous surgery Allergies: Allergies Allergy/AdvReac Type Severity Reaction Status Date / Time No Known Allergies Allergy Verified 12/05/21 13:25 [No Known Allergies*] Review of Systems Sugical H&P ROS: Negative: Cardiovascular, Respiratory, Neurological, Psychiatric, Hem-Onc, Allergic/Immunologic, Gastrointestinal, Genitourinary, Musculoskeletal, Integumentary, Endocrine and Eyes/Ears/Nose/Throat and Yes, Specify: Constitution Exam Surgical H&P Exam: Normal: HEENT, Normal: Heart, Normal: Lungs, Normal: Extremities, Normal: Abdomen, Normal: Skin and Normal: Neurological Plan Diagnosis/Plan: Unchanged I have reviewed the history and physical and performed a pertinent physical examination on my patient. No changes have occurred unless specified.
--- NOTE | 2021-12-11 14:23 | PM.OP ---
Brief Operative Note Date of Service: 12/11/21 Pre-op diagnosis: sacroiliitis Post-op diagnosis: same Procedure: Sacroiliac joint innervation diagnostic injection left Implants: none Surgeon: Arben Hanson MD Anesthesia: MAC Was an Workers Compensation Examiner used for this Procedure?: No Estimated blood loss (mL): 1 Pathology: none sent Condition: stable Disposition: PACU
--- NOTE | 2021-12-11 15:11 | W.PM.OPN ---
Operative Note Operative Note Date of Service: 12/11/21 Narrative: Sacroiliac joint innervation injection left Informed consent was explained thoroughly to the patient.? All questions about benefits and risks for the procedure were answered. Patient came to the operating room she was positioned prone on the operating table with the pillow under her pelvis.? ASA monitor were applied and the patient was deeply sedated. ? Her lower back and buttocks was prepped with ChloraPrep prepped and draped with sterile towels.? Sterilely draped C-arm was brought over the operating field and sq picture of patient's pelvis was demonstrated on the screen.? The point of interests were delineated 1st:? Point A? : Left S1 superior articular process at it's connection with sacral alae.? The point B was determined as the lowest point of the sacroiliac joint on sacral side of the joint on the left? The rest of the point of interests were determined as the line between the point A and the point B . ? The needles between point A and POINT B were planned to insert in the straight line in palisade fashion.? The skin in the projection of the points of interest were injected with small amount of local lidocaine 2%, after that 22 gauge 3-1/2 inch needles were driven to the point of interest in tunnel vision fashion. ? When needles gently contacted the bone- the each point of interest small amount of bupivacaine 0.5% less than 1 cc was injected into each needle. Upon completion of the injections the needles were removed sterile dressing was applied.? The patient tolerated procedure well.? She went outside of the operating room to PACU where she recovered uneventfully.?
[2021-12-11 15:12] VITALS: BP 115/58; PULSE 79; RESP 16; TEMP 36.4; O2SAT 100
[2021-12-11 15:28] VITALS: BP 124/69; PULSE 68; RESP 18; O2SAT 97
[2021-12-11 15:42] VITALS: BP 120/69; PULSE 64; RESP 18; O2SAT 97
[2021-12-11 15:45] VITALS: TEMP 36.6
== END 2021-12-11 16:00 | disposition home or self-care (01) ==
PROVIDERS: PCP Internal Medicine Geriatric Medicine; Visit Provider Anesthesiology
PROC: (CPT 64451; principal; 2021-12-11 13:40)
DX: M46.1 Sacroiliitis, not elsewhere classified (principal); M47.817 Spondylosis without myelopathy or radiculopathy, lumbosacral region; M54.50 Low back pain, unspecified; G89.4 Chronic pain syndrome; E10.8 Type 1 diabetes mellitus with unspecified complications; J45.909 Unspecified asthma, uncomplicated; Z79.51 Long term (current) use of inhaled steroids; Z79.84 Long term (current) use of oral hypoglycemic drugs; Z79.899 Other long term (current) drug therapy; Z87.891 Personal history of nicotine dependence
CPT/HCPCS: 64451; 82947; J2250; J2795; Q9966; Q9967

== ENCOUNTER → 2021-12-17 13:04 | Outpatient (BNVA) | payer MEDICARE, MEDICAID, SELFPAY | PROVIDERS: PCP Internal Medicine Geriatric Medicine; Visit Provider Anesthesiology | DX: M47.817 Spondylosis without myelopathy or radiculopathy, lumbosacral region (principal); M46.1 Sacroiliitis, not elsewhere classified; G89.4 Chronic pain syndrome; M54.50 Low back pain, unspecified | CPT/HCPCS: Q3014 ==

== ENCOUNTER → 2021-12-18 10:02 | Outpatient (BNVA) | payer MEDICARE, MEDICAID, SELFPAY | PROVIDERS: PCP Internal Medicine Geriatric Medicine; Visit Provider Advanced Practice Midwife | DX: Z71.2 Person consulting for explanation of examination or test findings (principal); R97.1 Elevated cancer antigen 125 [CA 125] | CPT/HCPCS: 99212 ==

== ENCOUNTER → 2022-06-15 15:44 | Outpatient (BNVA) | payer OTHER, MEDICAID, SELFPAY | PROVIDERS: PCP Internal Medicine Geriatric Medicine; Visit Provider Anesthesiology | DX: Z13.89 Encounter for screening for other disorder (principal) ==

== ENCOUNTER 2022-06-30 11:35 | Outpatient (REF) | payer MEDICARE, MEDICAID, SELFPAY ==
--- NOTE | ~2022-06-30 | XR_ITS ---
EXAMINATION: XR HIP, RIGHT CLINICAL INFORMATION: Right hip osteoarthritis. COMPARISON: Previous x-ray May 2017. MRI of the pelvis TECHNIQUE: Two views of the right hip and one view of the pelvis. FINDINGS: Bone alignment is normal. No fracture or dislocation. There is increased lateral coverage of the femoral heads by the acetabula or cam deformity. The hip joints are otherwise normal. There is a faint increased density adjacent to the lateral right iliac bone measuring 0.7 x 1.4 cm. It is uncertain whether this is related to bone/periosteum or is something in the overlying soft tissues. No abnormality is seen in this region on previous pelvic MRI August 2021 this may be related to something in the soft tissues. There is mild curvature of the lower lumbosacral spine to the right. Soft tissues are normal. 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 0.7 x 1.4 cm increased density adjacent to the right lateral iliac bone questionable bone periosteal or cortical lesion versus something in the overlying soft tissues. No abnormality is seen in this region on previous pelvic MRI most recent November 2021 and this may represent something in the soft tissues..
== END 2022-06-30 11:36 | disposition home or self-care (01) ==
LOC: HO.XRAY 11:35
PROVIDERS: PCP Internal Medicine Geriatric Medicine; Visit Provider Anesthesiology
DX: M16.11 Unilateral primary osteoarthritis, right hip (principal)
CPT/HCPCS: 73502

== ENCOUNTER → 2022-07-01 16:01 | Outpatient (BNVA) | payer MEDICARE, MEDICAID, SELFPAY | PROVIDERS: PCP Internal Medicine Geriatric Medicine; Visit Provider Anesthesiology ==

== ENCOUNTER → 2022-07-22 15:00 | Outpatient (BNVA) | payer MEDICARE, MEDICAID, SELFPAY | PROVIDERS: PCP Internal Medicine Geriatric Medicine; Visit Provider Anesthesiology | DX: M16.11 Unilateral primary osteoarthritis, right hip (principal) | CPT/HCPCS: 99212 ==

== ENCOUNTER 2022-08-28 22:41 | Emergency (ER) | payer MEDICARE, MEDICAID, SELFPAY ==
[2022-08-28 23:03] VITALS: BP 140/90; PULSE 84; PULSE 86; RESP 20; TEMP 36.9; O2SAT 95; O2SAT 97; BMI 28.4
--- NOTE | 2022-08-29 00:16 | ED.GENADULT ---
HPI - General Adult General Chief complaint: Headache Stated complaint: dizzy, vomiting, per ems Time Seen by Provider: 08/28/22 23:38 Source: patient, family and king maker ([employer]) Mode of arrival: EMS History of Present Illness HPI narrative: 52-year-old female who arrives via EMS with complaints high blood pressure and headaches this started today approximately 14:00 and at that time she checked her blood pressure noted that it was elevated and reports at that time that she had 2 episodes of vomiting and dizziness and called EMS to get further evaluation. She denies any associated fever, chills, sore throat, cough, shortness of breath, abdominal pain, or dysuria. She denies that she has had any difficulty with speech or gait. Related Data Home Medications Medication Instructions Recorded Confirmed glipizide 2.5 mg-metformin 500 mg 1 tab PO DAILY 04/15/20 06/15/22 tablet loratadine 10 mg tablet 10 mg PO DAILY 04/15/20 06/15/22 meclizine 25 mg tablet 25 mg PO TID PRN Vertigo 04/15/20 06/15/22 tramadol 50 mg tablet 50 mg PO Q12H PRN Pain 04/15/20 06/15/22 albuterol sulfate 90 mcg/actuation inhalation 07/29/20 06/15/22 aerosol inhaler fluticasone propionate 110 1 PO BID 07/29/20 06/15/22 mcg/actuation HFA aerosol inhaler (Flovent HFA) blood sugar diagnostic (OneTouch #10 ea 01/22/21 06/15/22 Ultra Test strips) ferrous sulfate 325 mg (65 mg 325 mg PO DAILY 01/22/21 06/15/22 iron) tablet fluticasone propionate 50 spray intranasal 01/22/21 06/15/22 mcg/actuation nasal spray,suspension hydroxyzine HCl 25 mg tablet 25 mg PO DAILY 02/25/21 06/15/22 naproxen 500 mg tablet 500 mg PO BID 06/30/21 06/15/22 Previous Rx's Medication Instructions Recorded methylcellulose (laxative) 500 mg 500 mg PO DAILY #30 tabs 02/25/21 tablet (Citrucel) norethindrone (contraceptive) 0.35 0.35 mg PO ONCE #28 tabs 05/28/21 mg tablet (Kristine) sennosides 8.6 mg tablet (senna) 8.6 mg PO BEDTIME constipation #90 06/30/21 tabs gabapentin 600 mg tablet 600 mg PO BID 30 days #60 tabs 03/18/22 Allergies Allergy/AdvReac Type Severity Reaction Status Date / Time No Known Allergies Allergy Verified 07/22/22 15:31 [No Known Allergies*] Review of Systems Review of Systems: Pertinent positives and negatives as stated in HPI [facility] Past Medical History Source: nursing notes reviewed Medical History Anxiety Asthma Chronic pain syndrome Diabetes Diverticulosis Endometrioma of ovary GERD (gastroesophageal reflux disease) Low back pain Migraine with aura Sacroiliitis Spondylosis of lumbosacral spine without myelopathy Vertigo Surgical History History of esophagogastroduodenoscopy (EGD) Hx of section Hx of colonoscopy Hx of tubal ligation S/P placement of nerve stimulator Family History Family History Maternal Aunt Breast cancer Social History Social History Household Members: Significant Other and Family Are you a primary rn managed care to a significant other at home: No Do you presently have visiting nurse or other home services: No Alcohol intake: never Patient Tobacco Use Status: Former Tobacco user Tobacco use type: Cigarette Smoked in Last 30 Days: No Use of substances other than those prescribed or required for medical reasons: No Advance Directives: No Advance Directives Information Provided: No Patient : No Physical Exam ED Vital Signs: Vital Signs - 24 hr 08/28/22 23:03 08/29/22 00:33 08/29/22 00:36 Temperature 98.4 F Pulse Rate 86 74 80 Respiratory Rate 20 Blood Pressure 117/65 117/70 Pulse Oximetry 97 Oxygen Delivery Method Room Air 08/29/22 00:39 Temperature Pulse Rate 82 Respiratory Rate Blood Pressure 120/75 Pulse Oximetry Oxygen Delivery Method BMI result Body Mass Index 28.4 VITAL SIGNS: Reviewed. GENERAL: Well developed, well nourished, in no acute distress. HEAD: Normocephalic/atraumatic EYES: PERRLA, EOMI EARS: Ext canals without abnormality NOSE: Nares patent bilateral OROPHARYNX: no oral lesions noted, posterior pharynx clear NECK: Supple, no adenopathy LUNGS: Normal breath sounds. No adventitious sounds or accessory muscle use. CARDIOVASCULAR: Regular rate and rhythm without noted murmurs ABDOMEN: Soft, non-tender, non-distended with bowel sounds. MUSCULOSKELETAL: No tenderness, deformities, or effusions noted on gross inspection. EXTREMITIES: No cyanosis, clubbing or edema. SKIN: Inspection of the skin reveals no rashes, NEUROLOGIC: Alert and oriented x 4. Strength and sensation to light touch were grossly intact x 4, no facial asymmetry, no pronator drift, cranial nerves 2-12 are grossly intact. Medical Decision Making Medical Decision Making MDM Narrative: 52-year-old female with history and clinical presentation, DDX: Infection, anemia, electrolyte imbalance. The time of my interview, patient was completely asymptomatic inciting that her symptoms had improved and the blood pressure was noted to be well within normal limits. I reviewed all investigations and feel that the leukocytosis is stress in nature, there is a very mild normocytic anemia noted with comparison from May of 2021 patient has no complaints of bleeding. She has not noted to be tachycardic or hypotensive. Chemistries are grossly within normal limits and urinalysis is negative for evidence of infection. Orthostatics were noted be negative. My interpretation is that the headache was likely secondary to blood pressure, patient is nonfocal and currently asymptomatic. All results and findings were discussed with her at bedside and she was instructed follow-up with primary care provider in further discuss blood pressure management. She denies any associated new medications or changes in medication dosages that might have affected her blood pressure. Differential Diagnosis Please see the discussion above Admission/Observation Consideration of admission/observation: Escalation of care including admission/observation considered Lab Data Please see the discussion above 08/29/22 00:03 08/29/22 00:03 Labs: Lab Results 08/28/22 08/29/22 08/29/22 Range/Units 23:56 00:03 00:03 WBC 11.0 H (4.8-10.8) X10*3/uL RBC 4.63 (4.20-5.50) X10*6/uL Hgb 11.7 L (12.0-16.0) g/dl Hct 37.7 (37.0-47.0) % MCV 81.4 (80.0-98.0) fL MCH 25.3 L (27.0-33.0) pg MCHC 31.0 (31.0-35.0) g/dl RDW 17.7 H (11.0-16.0) % Plt Count 279 (160-400) X10*3/uL MPV 11.9 (9.4-12.3) fL Immature Gran % (Auto) Cancelled Neut % (Auto) Cancelled Lymph % (Auto) Cancelled [place] % (Auto) Cancelled Eos % (Auto) Cancelled Baso % (Auto) Cancelled Lymph # (Auto) Cancelled [place] # (Auto) Cancelled Eos # (Auto) Cancelled Baso # (Auto) Cancelled Abs Immat Gran (auto) Cancelled Absolute Neuts (auto) Cancelled Absolute Nucleated RBC 0.000 (0.0-0.012) X10*3/uL Nucleated RBC % (auto) 0.0 (0.0-0.2) /100WBC Neutrophils % (Manual) 72 (45-73) % Band Neutrophils % 2 L (3-5) % Lymphocytes % (Manual) 13 L (20-40) % Monocytes % (Manual) 5 (2-11) % Eosinophils % (Manual) 6 H (0-4) % Basophils % (Manual) 2 (0-2) % Abs Neuts (Manual) 8.1 (2.0-8.3) X10*3/uL Lymphocytes # (Manual) 1.4 (1.2-4.9) X10*3/uL Monocytes # (Manual) 0.6 (0.1-1.2) X10*3/uL Eosinophils # (Manual) 0.7 H (0.0-0.4) X10*3/uL Basophils # (Manual) 0.2 (0.0-0.2) X10*3/uL Platelet Estimate NORMAL (NORMAL) Plt Morphology Comment NORMAL RBC Morphology NORMAL Sodium 136 (135-145) mmol/L Potassium 4.6 (3.3-5.1) mmol/L Chloride 103 (96-108) mmol/L Carbon Dioxide 21 L (22-29) mmol/L Anion Gap 17 (12-20) BUN 8 L (9-16) mg/dL Creatinine 0.80 (0.5-1.4) mg/dL Estim Creat Clear Calc 75.6 Estimated GFR > 60 Random Glucose 175 H (60-115) mg/dL Calcium 9.7 (8.4-10.2) mg/dL Total Bilirubin 0.3 (0.0-1.0) mg/dL AST 22 (5-31) U/L ALT 16 (0-31) U/L Alkaline Phosphatase 81 (39-117) U/L Total Protein 8.5 H (6.5-8.0) g/dL Albumin 4.2 (3.5-5.0) g/dL Urine Color Yellow Urine Appearance Clear Urine pH 5.5 (5.0-9.0) Ur Specific [place] 1.020 (1.005-1.025) Urine Protein Trace (Neg-Trace) mg/dL Urine Glucose (UA) Negative (Negative) mg/dL Urine Ketones Trace (Negative) mg/dL Urine Blood Negative (Negative) Urine Nitrite Negative (Negative) Ur Leukocyte Esterase Negative (Negative) External Record Review External record reviewed: Outpatient record and Prior outpatient labs Discharge Plan Discharge Clinical Impression: Headache, Hypertension Patient Disposition: Home, Self-Care Instructions: DASH Eating Plan (ED), Hypertension (ED), General Headache (ED) Additional Instructions: 1. Reanudar todos los medicamentos caseros seg?n lo prescrito. 2. Recomiende encarecidamente un seguimiento con keating proveedor de atenci?n primaria para analizar m?s a fondo los posibles medicamentos para la presi?n arterial. Regrese a la anusha de emergencias si los s?ntomas empeoran. 1. Resume all home medications as prescribed. 2. Strongly recommend follow-up with your primary care provider in further discuss possible blood pressure medication. Return to the ER for any worsening symptoms. Prescriptions: No Action gabapentin 600 mg tablet 600 mg PO BID 30 Days Qty: 60 8RF albuterol sulfate 90 mcg/actuation HFA aerosol inhaler inhalation fluticasone propionate [Flovent HFA] 110 mcg/actuation HFA aerosol inhaler 1 PO BID tramadol 50 mg tablet 50 mg PO Q12H PRN (Reason: Pain) meclizine 25 mg tablet 25 mg PO TID PRN (Reason: Vertigo) glipizide-metformin 2.5-500 mg tablet 1 tab PO DAILY loratadine 10 mg tablet 10 mg PO DAILY ferrous sulfate 325 mg (65 mg iron) tablet 325 mg PO DAILY (DME) OneTouch Ultra Test Strip See Rx Instructions .ROUTE .MEDSUPPLY Qty: 10 Rx Instructions: As directed fluticasone propionate 50 mcg/actuation spray,suspension intranasal hydroxyzine HCl 25 mg tablet 25 mg PO DAILY Citrucel 500 mg tablet 500 mg PO DAILY Qty: 30 2RF naproxen 500 mg tablet 500 mg PO BID sennosides [senna] 8.6 mg tablet 8.6 mg PO BEDTIME Qty: 90 2RF norethindrone (contraceptive) [Kristine] 0.35 mg tablet 0.35 mg PO ONCE Qty: 28 11RF Referrals: Name,MD Segundo [Primary Care Provider] - Print Language: Mongolian
[2022-08-29 00:33] VITALS: BP 117/65; PULSE 74
[2022-08-29 00:36] VITALS: BP 117/70; PULSE 80
[2022-08-29 00:39] VITALS: BP 120/75; PULSE 82
--- NOTE | 2022-08-29 01:05 | PC.NURSE ---
re-evaluating pt. speech clear. mental status at baseline. symptoms resolved. orthostatic BP taken and pt endorses no lightheadedness/dizziness. family member at bedside.
[2022-08-29 01:35] LABS: Alanine Aminotransferase 16 U/L (0-31); Albumin Level 4.2 g/dL (3.5-5.0); Alkaline Phosphatase 81 U/L (39-117); Anion Gap 17 (12-20); Aspartate Amino Transferase 22 U/L (5-31); Bilirubin Total 0.3 mg/dL (0.0-1.0); Blood Urea Nitrogen 8 mg/dL (9-16); Calcium 9.7 mg/dL (8.4-10.2); Carbon Dioxide 21 mmol/L (22-29); Chloride 103 mmol/L (96-108); Creatinine Clr Calc Pharmacy 75.6; Estimated Glomerular Filt Rate > 60; Glucose Random 175 mg/dL (60-115); Potassium 4.6 mmol/L (3.3-5.1); Sodium 136 mmol/L (135-145); Total Protein 8.5 g/dL (6.5-8.0)
[2022-08-29 02:17] VITALS: BP 126/65; PULSE 74; RESP 18; O2SAT 98
== END 2022-08-29 02:16 | disposition home or self-care (01) ==
PROVIDERS: Emergency Provider Student in an Organized Health Care Education/Training Program; PCP Internal Medicine Geriatric Medicine
DX: R51.9 Headache, unspecified (principal); R42 Dizziness and giddiness; I10 Essential (primary) hypertension; Z79.899 Other long term (current) drug therapy
CPT/HCPCS: 36415; 80053; 81003; 85007; 85027; 99283; 99284

== ENCOUNTER 2022-12-27 19:13 | Emergency (ER) | payer MEDICARE, MEDICAID, SELFPAY ==
--- NOTE | 2022-12-27 19:14 | ED_ITS ---
HPI - Headache General Chief Complaint: Headache Stated Complaint: headache Time Seen by Provider: 12/27/22 19:21 Source: patient, RN notes reviewed and old records reviewed Mode of arrival: ambulatory History of Present Illness HPI Narrative: 52-year-old female with a past medical history HTN, fibroids, sacroiliitis, migraines with aura, chronic pain syndrome, presenting to the ED c/o right sided facial/sinus pain, headache, rhinorrhea, right ear pain and sore throat x5 days. Admits TOLEDO is intermittent. Also reports chronic dizziness, unchanged. Denies fever, chills, nausea/vomiting, vision change/loss, blurry vision, weakness. Ad mits takes Naprosyn for headaches however did not take today MD elicited complaint: headache Related Data Home Medications Medication Instructions Recorded Confirmed glipizide 2.5 mg-metformin 500 mg 1 tab PO DAILY 04/15/20 06/15/22 tablet loratadine 10 mg tablet 10 mg PO DAILY 04/15/20 06/15/22 meclizine 25 mg tablet 25 mg PO TID PRN Vertigo 04/15/20 06/15/22 tramadol 50 mg tablet 50 mg PO Q12H PRN Pain 04/15/20 06/15/22 albuterol sulfate 90 mcg/actuation inhalation 07/29/20 06/15/22 aerosol inhaler fluticasone propionate 110 1 PO BID 07/29/20 06/15/22 mcg/actuation HFA aerosol inhaler (Flovent HFA) blood sugar diagnostic (OneTouch #10 ea 01/22/21 06/15/22 Ultra Test strips) ferrous sulfate 325 mg (65 mg 325 mg PO DAILY 01/22/21 06/15/22 iron) tablet fluticasone propionate 50 spray intranasal 01/22/21 06/15/22 mcg/actuation nasal spray,suspension hydroxyzine HCl 25 mg tablet 25 mg PO DAILY 02/25/21 06/15/22 naproxen 500 mg tablet 500 mg PO BID 06/30/21 06/15/22 Previous Rx's Medication Instructions Recorded methylcellulose (laxative) 500 mg 500 mg PO DAILY #30 tabs 02/25/21 tablet (Citrucel) norethindrone (contraceptive) 0.35 0.35 mg PO ONCE #28 tabs 04/06/22 mg tablet (Kristnie) sennosides 8.6 mg tablet (senna) 8.6 mg PO BEDTIME constipation #90 06/30/21 tabs gabapentin 600 mg tablet 600 mg PO BID 30 days #60 tabs 03/18/22 amoxicillin 875 mg-potassium 1 tab PO BID 7 days #14 tabs 12/27/22 clavulanate 125 mg tablet fluticasone propionate 50 2 spray intranasal DAILY #16 grams 12/27/22 mcg/actuation nasal spray,suspension (Flonase Allergy Relief) Allergies Allergy/AdvReac Type Severity Reaction Status Date / Time pollen extracts Allergy Nasal Verified 12/27/22 19:21 congestion Review of Systems Review of Systems: Constitutional: No Fever, No Chills ENT/Mouth: + Ear Pain, + Nasal Congestion, + Sinus Pain, No Hoarseness, + sore throat, + Rhinorrhea, No Swallowing Difficulty Cardiovascular: No Chest Pain, No SOB Respiratory: No Cough, No Sputum Gastrointestinal: No Nausea, No Vomiting, No Diarrhea, No Constipation, No Abdominal pain Musculoskeletal: No joint pain, No Myalgias, No Joint Swelling Skin: No Skin Lesions, No rash Neuro: No Weakness, No Numbness, No Paresthesias, +chronic dizziness, +TOLEDO Yes all other systems are reviewed and are negative Constitutional: Constitutional: Reports as per HPI Neurologic: Denies Abnormal speech present [facility] Past Medical History Attestation statement: The following information was validated with the patient. Source: old records reviewed Medical History Diverticulosis Diabetes GERD (gastroesophageal reflux disease) Asthma Anxiety Vertigo Migraine with aura Endometrioma of ovary Chronic pain syndrome Sacroiliitis Low back pain Spondylosis of lumbosacral spine without myelopathy Surgical History Hx of colonoscopy S/P placement of nerve stimulator History of esophagogastroduodenoscopy (EGD) Hx of tubal ligation Hx of section Family History Family History Maternal Aunt Breast cancer Social History Social History Household Members: Significant Other and Family Are you a primary social worker palliative care to a significant other at home: No Do you presently have visiting nurse or other home services: No Alcohol intake: never Patient Tobacco Use Status: Former Tobacco user Tobacco use type: Cigarette Smoked in Last 30 Days: No Use of substances other than those prescribed or required for medical reasons: No Advance Directives: No Advance Directives Information Provided: Yes Physical Exam Vital Signs: Vital Signs: Last Vital Signs Temp 98.5 F 12/27/22 20:13 Pulse 74 12/27/22 20:13 Resp 16 12/27/22 20:13 BP 129/70 12/27/22 20:13 Pulse Ox 97 12/27/22 20:13 O2 Del Method Room Air 12/27/22 20:13 BMI result Body Mass Index 25.8 Const: General: cooperative, healthy appearing and no acute distress Orientation/consciousness: patient oriented x3 Limitations: no limitations HEENT: Head: Yes normal to inspection and Yes atraumatic Ears: hearing grossly normal bilaterally, mastoids normal and TM abnormal wth effusion (right) and with fluid behind the TM on the right General nose exam: Normal external nose present Face and sinus: Yes normal facial exam, No sinuses nontender (+right maxillary sinus ttp) and Yes face symmetric Mouth: no drooling Throat: Yes posterior oropharynx normal, Yes tonsils normal, Yes uvula midline, No peritonsillar mass, No uvula laterally displaced and No uvular edema Eyes: General: appearance normal, both eyes and all related structures EOM: EOMs intact bilaterally Neck: Neck: Yes normal visual inspection, Yes no meningeal signs, No anterior neck swelling and No torticollis Resp: Effort & Inspection: normal respiratory effort, no respiratory distress and no stridor Cardio: Rate: regular rate Skin: Rashes: no rashes Wounds: no wounds Neuro: General: patient oriented x3, gait normal, tone normal, moves all extremities, no meningeal signs, no focal motor deficits and CN's II-XI intact bilaterally Cranial nerves: Yes CN's II-XII intact bilaterally and Yes Bilaterally intact EOM present Cognition (Neuro): normal cognition Speech: No Abnormal speech present Gait exam (Neuro): Normal gait present Motor exam (neuro): 5/5 motor strength present throughout and no tremor noted Extrem: General: Yes normal to inspection Course Course Course Narrative: -rapid strep negative -POC 174 -2046--COVID and influenza negative >> patient given 1st dose of Augmentin and Fioricet in the ED Results discussed with patient including worrisome signs and symptoms and strict return precautions, and when to return to the emergency department. They verbalized understanding and feel safe for discharge at this time. Medical Decision Making Medical Decision Making [facility] Narrative: 52-year-old female with a past medical history HTN, fibroids, sacroiliitis, migraines with aura, chronic pain syndrome, presenting to the ED c/o right sided facial/sinus pain, headache, rhinorrhea, right ear pain and sore throat x5 days. On exam VSS, NAD, nontoxic appearing, +right sinus ttp and fluid behind R TM. Mastoid WNL. Oropharynx wnl. Talking in complete sentences. No stridor, No focal neuro deficits. Concern for sinusitis vs otitis media vs viral syndrome or pharyngitis. Low suspicion for CUSTOMER BUSINESS MANAGER/retropharyngeal abscess or mastoiditis or osteo or CVA/TIA Plan: Viral testing, rapid strep, POC Please refer to course for remaining clinical decision making, interpretation of labs/imaging results, and discussions with consultants and/or family members. Differential Diagnosis Differential Diagnoses: The differential diagnosis associated with the presentation includes As above Lab Data [facility] Lab Attestation statement: I reviewed the patient's lab results. Labs: Lab Results 12/27/22 12/27/22 Range/Units 20:14 20:20 POC Glucose 174 H (60-115) mg/dL COVID-19 (MELLISA) Negative (Negative) COVID-19 Clin Com See Note Influenza Type A (NAA) Negative (Negative) Influenza Type B (ANA) Negative (Negative) Influenza A & B Note See Note S. pyogenes GrpA ANA Negative (Negative) External Record Review External record reviewed: Inpatient record, Office record, Outpatient record, Prior outpatient labs, Prior outpatient radiology, Primary care record and Outside ED record Tests considered The following testing was considered but not selected: As above Prescription Management I considered prescription management with: Pain Medication and Antibiotic Chronic Conditions Patient?s care impacted by: Hypertension Discharge Plan Discharge Clinical Impression: Otitis media, Sinusitis Patient Disposition: Home, Self-Care Instructions: Sinusitis (ED), Ear Infection (ED) Additional Instructions: You have an inner ear infection & likely a sinus infection, Augmentin is an antibiotic please take as prescribed Flonase as a nasal decongestant Please stay hydrated. Take Tylenol /Motrin as needed Follow-up with her doctor If symptoms persist or worsen return to the ED Tiene nathalia infecci?n del o?do interno y probablemente nathalia infecci?n de los senos nasales. Augmentin es un antibi?hansa, t?araujo seg?n lo recetado. Flonasa omer descongestionante nasal Por favor mant?ngase hidratado. [place] Tylenol/Motrin seg?n sea necesario Seguimiento con keating m?dico. Si los s?ntomas persisten o empeoran, regrese al servicio de urgencias. Prescriptions: New fluticasone propionate [Flonase Allergy Relief] 50 mcg/actuation spray,suspension 2 spray intranasal DAILY Qty: 16 0RF Rx Instructions: administer into each nostril amoxicillin-pot clavulanate 875-125 mg tablet 1 tab PO BID 7 Days Qty: 14 0RF No Action gabapentin 600 mg tablet 600 mg PO BID 30 Days Qty: 60 8RF albuterol sulfate 90 mcg/actuation HFA aerosol inhaler inhalation fluticasone propionate [Flovent HFA] 110 mcg/actuation HFA aerosol inhaler 1 PO BID tramadol 50 mg tablet 50 mg PO Q12H PRN (Reason: Pain) meclizine 25 mg tablet 25 mg PO TID PRN (Reason: Vertigo) glipizide-metformin 2.5-500 mg tablet 1 tab PO DAILY loratadine 10 mg tablet 10 mg PO DAILY ferrous sulfate 325 mg (65 mg iron) tablet 325 mg PO DAILY (DME) OneTouch Ultra Test Strip See Rx Instructions .ROUTE .MEDSUPPLY Qty: 10 Rx Instructions: As directed fluticasone propionate 50 mcg/actuation spray,suspension intranasal hydroxyzine HCl 25 mg tablet 25 mg PO DAILY Citrucel 500 mg tablet 500 mg PO DAILY Qty: 30 2RF naproxen 500 mg tablet 500 mg PO BID sennosides [senna] 8.6 mg tablet 8.6 mg PO BEDTIME Qty: 90 2RF norethindrone (contraceptive) [Kristine] 0.35 mg tablet 0.35 mg PO ONCE Qty: 28 11RF Referrals: Segundo Siddiqui MD [Primary Care Provider] - Print Language: Moldovan
[2022-12-27 19:15] VITALS: BP 142/78; PULSE 84; RESP 18; TEMP 37; O2SAT 100; BMI 25.8
[2022-12-27 20:13] VITALS: BP 129/70; PULSE 74; RESP 16; TEMP 36.9; O2SAT 97
--- NOTE | 2022-12-27 20:24 | PC.NURSE ---
nasal/throat swabs obtained and sent to lab. vss. resp even and unlabored. airway patent. poc 174. awaiting primary eval by ed provider. call [place] within reach.
[2022-12-27 20:29] LABS: Glucose, Whole Blood 174 mg/dL (60-115)
[2022-12-27 20:32] LABS: IDNOW Serial# 08D9AD1C; Strep A Nucleic Acid Negative (Negative)
[2022-12-27 20:44] LABS: IDNOW Serial# 9DB6401D; Influenza A Negative (Negative); Influenza B2 Negative (Negative)
[2022-12-27 20:45] LABS: COVID-19 Test Negative (Negative); IDNOW Serial# BCCEAD1C
[2022-12-27] MEDS: Butalb/Acetamin/Caff 50/325/40 TABLET 1 TAB PO (20:58)
[2022-12-27] MEDS: Amoxicillin/Potassium Clav 875 MG TABLET PO (20:58)
== END 2022-12-27 21:02 | disposition home or self-care (01) ==
PROVIDERS: Physician Assistant; Emergency Provider Emergency Medicine; PCP Internal Medicine Geriatric Medicine
DX: J32.9 Chronic sinusitis, unspecified (principal); H66.90 Otitis media, unspecified, unspecified ear; R51.9 Headache, unspecified; I10 Essential (primary) hypertension; M46.1 Sacroiliitis, not elsewhere classified; G89.4 Chronic pain syndrome; J02.9 Acute pharyngitis, unspecified; J34.89 Other specified disorders of nose and nasal sinuses; Z11.52 Encounter for screening for COVID-19
CPT/HCPCS: 82947; 87502; 87635; 87651; 99283; 99284

== ENCOUNTER 2023-11-25 13:48 | Outpatient (AMB) | payer MEDICARE, MEDICAID, SELFPAY ==
--- NOTE | 2023-11-25 13:55 | A.OFFVIS_ITS ---
Vital Signs 11/25/23 14:06 Height 5 ft 2 in Weight 145 lb 2 oz BMI 26.5 BP 140/100 H Blood Pressure Location Lt brachial Position Sitting Respiration 16 Pulse 73 Pulse Source Pulse Oximeter Pulse Oximetry (%) 100 Oxygen Delivery Method Room Air Intake Visit Reasons: CONTINUOUS BACK PAIN Intake Note: Patient comes in for continous back pain. Reports pain Book Canvasser Required: Yes Book Canvasser Services: Book Canvasser Present Accompanied by: Spouse Allergies pollen extracts Allergy (Verified 11/25/23 14:06) Nasal congestion HPI Comments Details: Jen is back in my office after almost a year of the absence. She in the past received sacroiliac joint injections on the left as well as she was evaluated by x-ray of her right hip joint. There was a cam deformity on the x-ray however the image of the left hip joint appeared to be intact. Today she reports pain in the left hip joint projection radiating to the left groin and also to the left back. Rotation of the left hip laterally result in pain increase. I suspect that the condition on the left hip got progress. I decided to send her for the left hip x-ray today. She complains on intractable left hip pain she reports that gabapentin 600 mg b.i.d. does not have any side effects and help her pain minimally to moderately. I decided to start her on 800 mg t.i.d. of gabapentin to help her pain better. Prior: SIJ innervation diagnostic injection was performed for her in the past twice.?? in the past she was a subject of trial of the peripheral nerve stimulation stim wave and got good results however refused to go for implantation and instead requested to perform diagnostic injection again.? ? She had the trial of sacroiliac joint innervation peripheral nerve stimulation stim wave.? She reported pain relieve from 910 to 2/10 while being stimulated however she is not very eager to have implant of the device.? She was asking me about other options.? I explained to her about radiofrequency ablation of the sacroiliac joint innervation as well as potential sacroiliac joint fusion. She had SI joint innervation injection with very good results of 100% pain relief for for 6 hours and following several days of 80% pain relieve. Prior:? History of? lower back pain.? She has a 30 year history of lower back pain, without any inciting events. She denies surgical spinal procedures She describes a pressure in her lower back with stinging and burning radiation down lateral right leg, extending to lateral ankle. She was treated previously for this at [place] with PT and what sounds to be ESIs. She states PT did not help, and injections only helped for about a month each, with side effect of hyperglycemia.? She is very brittle diabetic. She was sent for an MRI by Ms. Eli.? The report of the MRI is as below.? She had PT without success and she is taking gabapentin without significant pain relief. The possibility to treat this patient with different approaches as above was discussed again today [facility] Medical History Diverticulosis Diabetes GERD (gastroesophageal reflux disease) Asthma Anxiety Vertigo Migraine with aura Endometrioma of ovary Chronic pain syndrome Sacroiliitis Low back pain Spondylosis of lumbosacral spine without myelopathy Surgical History Hx of colonoscopy S/P placement of nerve stimulator History of esophagogastroduodenoscopy (EGD) Hx of tubal ligation Hx of section Family History Maternal Aunt Breast cancer Social History (System 09/30/23 @ 16:31 by Lora Louise) Household Members: Significant Other and Family Are you a primary post acute care nurse practitioner to a significant other at home: No Do you presently have visiting nurse or other home services: No Alcohol intake: never Patient Tobacco Use Status: Former Tobacco user Tobacco use type: Cigarette Female Reproductive History Menstrual Age of Menarche: 12 Review of Systems Const All systems reviewed & are unremarkable except as noted in HPI and below Neuro Denies Sensory deficit (Neuro) Physical Exam Vital Signs: Last Vital Signs Pulse 73 11/25/23 14:06 Resp 16 11/25/23 14:06 BP 140/100 H 11/25/23 14:06 Pulse Ox 100 11/25/23 14:06 Oxygen Delivery Method Room Air 11/25/23 14:06 BMI result Body Mass Index 26.5 Const General: cooperative, healthy appearing, comfortable and no acute distress Eyes EOM: EOMs intact bilaterally Chest Chest palpation & inspection: normal inspection of the chest Resp Effort & Inspection: normal respiratory effort, able to speak in complete sentences, normal respiratory pattern, no audible wheezes and no cough Cardio Jugular venous distension: no JVD Back/Spine/Pelvis Other: tenderness on palpation in paraspinal spinal region in lumbar spine. S special tenderness noted in the projection of the right sacroiliac joint. Ari test is positive. Pelvic compression test is positive. Rebel finger test is positive. Loading test is positive. Range of motion in lumbar spine is preserved. . Neuro Sensory Exam: No Sensory deficit (Neuro) Extrem Other: Lateral rotation of the left hip causes severe discomfort in the groin. Psych Attitude: cooperative Results Reviewed Results Reviewed: Hip x-ray right three views. 06/30/2022: Right hip osteoarthritis Findings: Bone alignment is normal. No fracture or dislocation. There is increase lateral coverage of the femoral heads by the acetabulum or cam deformity. The hip joints are otherwise normal. There is a faint increased density adjacent to the lateral right iliac bone measuring 0.7 x 1.4 cm. It is uncertain whether this is related to bone. Ostium or is something on the overlying soft tissue. No abnormality is seen in this region on previous pelvic MRI on August 2021. This may be related to something of the soft tissue. There is mild curvature of the lower lumbar sacral spine on the right. Soft tissue is normal. Assessment & Plan Assessment & Plan (1) Arthritis of right hip: Code(s): M16.11 - Unilateral primary osteoarthritis, right hip Category: Medical Plan In the past the patient care was concentrated on the right sacroiliac joint. However today for critical presentation mostly demonstrates right hip arthritis. In the past she had right hip x-ray with come deformity but without arthritis. However now I believe that we may see the right hip joint arthritic changes so I will see her for right hip x-ray. I will schedule her for the follow-up appointment with me in 2 weeks and we will discuss this x-ray at that time. Orders: Orders XR hip RT min 2V Today M16.11 - Unilateral primary osteoarthritis, right hip Medications: New gabapentin 800 mg PO TID 30 days 90 tabs 5RF Discontinued gabapentin Discontinued Reason: Doctor's Order 600 mg PO BID 30 days 60 tabs 8RF Patient Instructions: I here by testify that I spent 35 minutes in conversation with this patient as well as planning her care and organizing this note. review appraiser [id number] was helping us to maintain this conversation is Thai. Coding Level of Care Code Est Pt Level 4 (67414) Diagnoses Arthritis of right hip M16.11
[2023-11-25 14:06] VITALS: BP 140/100; PULSE 73; RESP 16; O2SAT 100; BMI 26.5
== END 2023-11-25 14:25 | disposition home or self-care (01) ==
PROVIDERS: PCP Internal Medicine Geriatric Medicine; Visit Provider Anesthesiology
DX: M16.11 Unilateral primary osteoarthritis, right hip (principal)
CPT/HCPCS: 99214

== ENCOUNTER 2023-11-25 13:48 | Outpatient (REF) | payer MEDICARE, MEDICAID, SELFPAY ==
--- NOTE | ~2023-11-25 | XR_ITS ---
EXAMINATION: XR HIP RIGHT 2 VIEWS CLINICAL INFORMATION: Unilateral primary osteoarthritis, right hip M16.11. Patient states pain in hip and no known injury. COMPARISON: XR Right hip 06/30/2022 TECHNIQUE: Two views of the right hip. FINDINGS: Visualized portion of the proximal right femur demonstrate no fracture. Femoral head is well-seated within the acetabulum and there is again noted to be increased lateral coverage of the femoral head. No significant degenerative changes of the right hip. Small bony score of the right iliac bone again demonstrated. IMPRESSION: 1. No fracture or dislocation of the right hip. 2. Similar suspected mild cam deformity of the right hip. Electronically signed by: Ari Gifford MD 02/03/2024 08:43 AM MARCIA
== END 2023-11-25 13:49 | disposition home or self-care (01) ==
LOC: HO.XRAY 13:48
PROVIDERS: PCP Internal Medicine Geriatric Medicine; Visit Provider Anesthesiology
DX: M16.11 Unilateral primary osteoarthritis, right hip (principal)
CPT/HCPCS: 73502; 99212

== ENCOUNTER 2023-12-09 13:41 | Outpatient (AMB) | payer MEDICARE, MEDICAID, SELFPAY ==
--- NOTE | 2023-12-09 13:42 | MHC.OFFVIS ---
Vital Signs 12/09/23 13:56 Height 5 ft 2 in Weight 145 lb 2 oz BMI 26.5 BP 140/86 H Blood Pressure Location Lt brachial Position Sitting Respiration 16 Pulse 87 Pulse Source Pulse Oximeter Pulse Oximetry (%) 98 Oxygen Delivery Method Room Air Intake Visit Reasons: 2 Weeks Follow Up Intake Note: patient comes in for 2 weeks follow. Reports pain 8/10. Respiratory Scientist Required: Yes Respiratory Scientist Services: Respiratory Scientist Present Respiratory Scientist Name: Yeny Mathew [id number] Allergies pollen extracts Allergy (Verified 12/09/23 14:01) Nasal congestion HPI Comments Details: Three weeks ago Center returned to my office after more than 1 year of absence. She continues to complain on pain in the right hip joint however last time 1 year ago x-ray of the right hip joint demonstrated only cam deformity and not much of the hip arthritis. There were also not much of the changes in projection of the trochanteric bursa. And yet patient is convinced that she has pain she experiences coming from the hip joint. History of the sacroiliac joint problem is described as below. I sent her on her insistence to the another right hip x-ray and we are still waiting for official report. I examined that x-ray myself and did not find any major changes which would be evident of arthritis. She also reported today pain in the projection of the mid axillary line ?where my bra strap is. ?Most likely this is muscular spasm. I decided to send her for physical therapy and started her on baclofen. She adamantly refused to go for physical therapy but she agreed to start baclofen. The prescription of the baclofen see as below. We agreed that I will see her in 3 weeks probably by then the x-ray reading will be ready. Prior: SIJ innervation diagnostic injection was performed for her in the past twice.?? in the past she was a subject of trial of the peripheral nerve stimulation stim wave and got good results however refused to go for implantation and instead requested to perform diagnostic injection again.? ? She had the trial of sacroiliac joint innervation peripheral nerve stimulation stim wave.? She reported pain relieve from 9/10 to 2/10 while being stimulated however she is not very eager to have implant of the device.? She was asking me about other options.? I explained to her about radiofrequency ablation of the sacroiliac joint innervation as well as potential sacroiliac joint fusion. She had SI joint innervation injection with very good results of 100% pain relief for for 6 hours and following several days of 80% pain relieve. Prior:? History of? lower back pain.? She has a 30 year history of lower back pain, without any inciting events. She denies surgical spinal procedures She describes a pressure in her lower back with stinging and burning radiation down lateral right leg, extending to lateral ankle. She was treated previously for this at [place] with PT and what sounds to be ESIs. She states PT did not help, and injections only helped for about a month each, with side effect of hyperglycemia.? She is very brittle diabetic. She was sent for an MRI by Ms. Eli.? The report of the MRI is as below.? She had PT without success and she is taking gabapentin without significant pain relief. The possibility to treat this patient with different approaches as above was discussed again today [facility] Medical History Diverticulosis Diabetes GERD (gastroesophageal reflux disease) Asthma Anxiety Vertigo Migraine with aura Endometrioma of ovary Chronic pain syndrome Sacroiliitis Low back pain Spondylosis of lumbosacral spine without myelopathy Surgical History Hx of colonoscopy S/P placement of nerve stimulator History of esophagogastroduodenoscopy (EGD) Hx of tubal ligation Hx of section Family History Maternal Aunt Breast cancer Social History (System 09/30/23 @ 16:31 by Lora Louise) Household Members: Significant Other and Family Are you a primary customer care representative to a significant other at home: No Do you presently have visiting nurse or other home services: No Alcohol intake: never Patient Tobacco Use Status: Former Tobacco user Tobacco use type: Cigarette Female Reproductive History Menstrual Age of Menarche: 12 Review of Systems Const All systems reviewed & are unremarkable except as noted in HPI and below Neuro Denies Sensory deficit (Neuro) Physical Exam Vital Signs: Last Vital Signs Pulse 87 12/09/23 13:56 Resp 16 12/09/23 13:56 BP 140/86 H 12/09/23 13:56 Pulse Ox 98 12/09/23 13:56 Oxygen Delivery Method Room Air 12/09/23 13:56 BMI result Body Mass Index 26.5 Const General: cooperative, healthy appearing, comfortable and no acute distress Eyes EOM: EOMs intact bilaterally Chest Chest palpation & inspection: normal inspection of the chest Resp Effort & Inspection: normal respiratory effort, able to speak in complete sentences, normal respiratory pattern, no audible wheezes and no cough Cardio Jugular venous distension: no JVD Back/Spine/Pelvis Other: tenderness on palpation in paraspinal spinal region in lumbar spine. S special tenderness noted in the projection of the right sacroiliac joint. Ari test is positive. Pelvic compression test is positive. Rebel finger test is positive. Loading test is positive. Range of motion in lumbar spine is preserved. . Neuro Sensory Exam: No Sensory deficit (Neuro) Extrem Other: Lateral rotation of the left hip causes severe discomfort in the groin. Psych Attitude: cooperative Assessment & Plan Assessment & Plan (1) Arthritis of right hip: Code(s): M16.11 - Unilateral primary osteoarthritis, right hip Category: Medical Plan In the past the patient care was concentrated on the right sacroiliac joint. She insisted that her pain is related to the right hip. On the x-ray there were no much of the changes 1 year ago but she insisted to send her for right hip x-ray. The reading is not read but I did not see any changes on the right hip yet. The sacroiliac joint treatment history see as above. She also complains on pain in projection of the right side of the chest in the projection of her mid axillary line. Most likely it is a muscular spasm I offered her to go for physical therapy and I also recommended her to start baclofen. She adamantly refused to go for physical therapy however she accepted baclofen. The prescription is as below. We agreed that I will see her in 3 weeks by that time her hip x-ray will be ready. Medications: New baclofen 10 mg PO TID 90 tabs 6RF 30 days Coding Level of Care Code Est Pt Level 3 (87103) Diagnoses Arthritis of right hip M16.11
[2023-12-09 13:56] VITALS: BP 140/86; PULSE 87; RESP 16; O2SAT 98; BMI 26.5
== END 2023-12-09 14:06 | disposition home or self-care (01) ==
PROVIDERS: PCP Internal Medicine Geriatric Medicine; Visit Provider Anesthesiology
DX: M16.11 Unilateral primary osteoarthritis, right hip (principal)
CPT/HCPCS: 99213

== ENCOUNTER → 2023-12-09 13:41 | Outpatient (BNVA) | payer MEDICARE, MEDICAID, SELFPAY | PROVIDERS: PCP Internal Medicine Geriatric Medicine; Visit Provider Anesthesiology | CPT/HCPCS: 99212 ==

== ENCOUNTER 2023-12-30 13:31 | Outpatient (AMB) | payer MEDICARE, MEDICAID, SELFPAY ==
--- NOTE | 2023-12-30 13:32 | A.OFFVIS_ITS ---
Vital Signs 12/30/23 13:38 Height 5 ft 2 in Weight 145 lb 2 oz BMI 26.5 BP 138/70 Blood Pressure Location Lt brachial Position Sitting Respiration 12 Pulse 92 Pulse Source Pulse Oximeter Pulse Oximetry (%) 96 Oxygen Delivery Method Room Air Intake Visit Reasons: 3 Weeks FU Intake Note: Patient comes in for 3 weeks follow up. Reports pain 10. Allergies pollen extracts Allergy (Verified 12/30/23 13:41) Nasal congestion HPI Comments Details: Jen is back in my office to review the results of the x-ray of the right hip. Unfortunately the results are not ready yet. I took a look on the x-ray and I with my non radiology's eyes did not see any major changes however I will wait for the official report. She came today with complains on pain in the left forearm radiating to the arm, she reports pain with motions she denies trauma or accidents which could cause this condition. I think she might have myositis or elbow arthritis and this is acute condition. I recommended her to start physical therapy I will put the order in and I also recommend her to start ibuprofen 200 mg every 6 hours on the clock not p.r.n. this was explained to the patient. I will see this patient when she will complete physical therapy. Prior: returned to my office after more than 1 year of absence. She continues to complain on pain in the right hip joint however last time 1 year ago x-ray of the right hip joint demonstrated only cam deformity and not much of the hip arthritis. There were also not much of the changes in projection of the trochanteric bursa. And yet patient is convinced that she has pain she experiences coming from the hip joint. History of the sacroiliac joint problem is described as below. I sent her on her insistence to the another right hip x- ray and we are still waiting for official report. I examined that x-ray myself and did not find any major changes which would be evident of arthritis. She also reported today pain in the projection of the mid axillary line ?where my bra strap is. ?Most likely this is muscular spasm. I decided to send her for physical therapy and started her on baclofen. She adamantly refused to go for physical therapy but she agreed to start baclofen. The prescription of the baclofen see as below. We agreed that I will see her in 3 weeks probably by then the x-ray reading will be ready. Prior: SIJ innervation diagnostic injection was performed for her in the past twice.?? in the past she was a subject of trial of the peripheral nerve stimulation stim wave and got good results however refused to go for implantation and instead requested to perform diagnostic injection again.? ? She had the trial of sacroiliac joint innervation peripheral nerve stimulation stim wave.? She reported pain relieve from 9/10 to 2/10 while being stimulated however she is not very eager to have implant of the device.? She was asking me about other options.? I explained to her about radiofrequency ablation of the sacroiliac joint innervation as well as potential sacroiliac joint fusion. She had SI joint innervation injection with very good results of 100% pain relief for for 6 hours and following several days of 80% pain relieve. Prior:? History of? lower back pain.? She has a 30 year history of lower back pain, without any inciting events. She denies surgical spinal procedures She describes a pressure in her lower back with stinging and burning radiation down lateral right leg, extending to lateral ankle. She was treated previously for this at [place] with PT and what sounds to be ESIs. She states PT did not help, and injections only helped for about a month each, with side effect of hyperglycemia.? She is very brittle diabetic. She was sent for an MRI by Ms. Eli.? The report of the MRI is as below.? She had PT without success and she is taking gabapentin without significant pain relief. The possibility to treat this patient with different approaches as above was discussed again today [facility] Medical History Diverticulosis Diabetes GERD (gastroesophageal reflux disease) Asthma Anxiety Vertigo Migraine with aura Endometrioma of ovary Chronic pain syndrome Sacroiliitis Low back pain Spondylosis of lumbosacral spine without myelopathy Surgical History Hx of colonoscopy S/P placement of nerve stimulator History of esophagogastroduodenoscopy (EGD) Hx of tubal ligation Hx of section Family History Maternal Aunt Breast cancer Social History (System 09/30/23 @ 16:31 by Lora Louise) Household Members: Significant Other and Family Are you a primary career and technology education teacher to a significant other at home: No Do you presently have visiting nurse or other home services: No Alcohol intake: never Patient Tobacco Use Status: Former Tobacco user Tobacco use type: Cigarette Female Reproductive History Menstrual Age of Menarche: 12 Review of Systems Const All systems reviewed & are unremarkable except as noted in HPI and below Neuro Denies Sensory deficit (Neuro) Physical Exam Const General: cooperative, healthy appearing, comfortable and no acute distress Eyes EOM: EOMs intact bilaterally Chest Chest palpation & inspection: normal inspection of the chest Resp Effort & Inspection: normal respiratory effort, able to speak in complete sentences, normal respiratory pattern, no audible wheezes and no cough Cardio Jugular venous distension: no JVD Back/Spine/Pelvis Other: tenderness on palpation in paraspinal spinal region in lumbar spine. S special tenderness noted in the projection of the right sacroiliac joint. Ari test is positive. Pelvic compression test is positive. Rebel finger test is positive. Loading test is positive. Range of motion in lumbar spine is preserved. . Neuro Sensory Exam: No Sensory deficit (Neuro) Extrem Other: Lateral rotation of the left hip causes severe discomfort in the groin. 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 She insisted that her pain is related to the right hip. On the x-ray there were no much of the changes 1 year ago but she insisted to send her for right hip x- ray. The reading is not read but I did not see any changes on the right hip yet. The sacroiliac joint treatment history see as above. Today she presented with left elbow complains as above. This is acute pain. I will send her to physical therapy and I will recommend her to do ibuprofen 200 mg on the clock every 6 hours. I will see her when she will complete physical therapy. 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
[2023-12-30 13:38] VITALS: BP 138/70; PULSE 92; RESP 12; O2SAT 96; BMI 26.5
== END 2023-12-30 13:43 | disposition home or self-care (01) ==
LOC: HO.PMC 13:31
PROVIDERS: PCP Internal Medicine Geriatric Medicine; Visit Provider Anesthesiology
DX: M16.11 Unilateral primary osteoarthritis, right hip (principal); M25.522 Pain in left elbow; M19.022 Primary osteoarthritis, left elbow
CPT/HCPCS: 99213

== ENCOUNTER → 2023-12-30 13:31 | Outpatient (BNVA) | payer MEDICARE, MEDICAID, SELFPAY | PROVIDERS: PCP Internal Medicine Geriatric Medicine; Visit Provider Anesthesiology | DX: M16.11 Unilateral primary osteoarthritis, right hip (principal); M25.522 Pain in left elbow; M19.022 Primary osteoarthritis, left elbow | CPT/HCPCS: 99212 ==

== ENCOUNTER 2024-05-15 11:30 | Outpatient (REF) | payer MEDICARE, MEDICAID, SELFPAY ==
[2024-05-15 13:49] LABS: MANUAL DIFF FLAG NO
[2024-05-15 13:58] LABS: Basophils Percent Auto 0.5 % (0-2); Eosinophils Absolute Auto 0.6 X10*3/uL (0.0-0.4); Eosinophils Percent Auto 9.5 % (0-4); Hematocrit 34.5 % (37.0-47.0); Imm Gran Abs Auto 0.01 X10*3/uL (0.00-0.03); Imm Gran Pct Auto 0.2 % (0.0-0.4); Lymphocytes Absolute Auto 2.1 X10*3/uL (1.2-4.9); Lymphocytes Percent Auto 33.3 % (20-40); Mean Corpuscular HGB Conc 31.9 g/dl (31.0-35.0); Mean Corpuscular Hemoglobin 25.3 pg (27.0-33.0); Mean Corpuscular Volume 79.3 fL (80.0-98.0); Mean Platelet Volume 12.6 fL (9.4-12.3); Monocytes Absolute Auto 0.6 X10*3/uL (0.1-1.2); Monocytes Percent Auto 8.6 % (2-11); Neutrophils Absolute Auto 3.1 x10*3/uL (2.0-8.3); Neutrophils Percent Auto 47.9 % (45-73); Platelet Count 273 X10*3/uL (160-400); Red Blood Count 4.35 X10*6/uL (4.20-5.50); White Blood Count 6.4 X10*3/uL (4.8-10.8)
[2024-05-15 14:11] LABS: Creatinine Urine 171.56 mg/dL; Microalbum/Creatinine Ratio Ur 27.9 ug/mg cr (<30)
[2024-05-15 14:22] LABS: Alanine Aminotransferase 19 U/L (0-31); Albumin Level 3.7 g/dL (3.5-5.0); Alkaline Phosphatase 73 U/L (39-117); Anion Gap 10 (12-20); Aspartate Amino Transferase 19 U/L (5-31); Bilirubin Total 0.3 mg/dL (0.0-1.0); Blood Urea Nitrogen 10 mg/dL (9-16); Calcium 8.6 mg/dL (8.4-10.2); Carbon Dioxide 27 mmol/L (22-29); Chloride 106 mmol/L (96-108); Cholesterol 184 mg/dL (<200); Estimated Glomerular Filt Rate > 60; Glucose Random 155 mg/dL (60-115); HDL Cholesterol 47 mg/dL (>40); LDL Cholesterol Calculated 120 mg/dL (<100); Potassium 4.3 mmol/L (3.3-5.1); Sodium 139 mmol/L (135-145); Total Protein 7.4 g/dL (6.5-8.0); Triglycerides 89 mg/dL (<150)
== END 2024-05-15 11:31 | disposition home or self-care (01) ==
LOC: HO.HHCL 11:30
PROVIDERS: Visit Provider Internal Medicine Geriatric Medicine
DX: E11.69 Type 2 diabetes mellitus with other specified complication (principal); E78.00 Pure hypercholesterolemia, unspecified; I10 Essential (primary) hypertension
CPT/HCPCS: 36415; 80053; 80061; 82043; 82570; 85025

== ENCOUNTER 2024-08-28 11:11 | Outpatient (REF) | payer MEDICARE, MEDICAID, SELFPAY ==
--- NOTE | ~2024-08-28 | XR_ITS ---
EXAMINATION: XR LUMBOSACRAL SPINE CLINICAL INFORMATION: chronic low back pain COMPARISON: 05/24/2017. MRI lumbar 11/08/2019. TECHNIQUE: Three views of the lumbosacral spine. FINDINGS: There is no scoliosis. There is a normal lordosis. There is no subluxation. There are no fractures, compression deformities, or suspicious bone lesions. There is minimal/early disc degeneration diffusely. There is normal facet alignment. No significant facet arthropathy. The sacrum is intact. Mild arthritis of the bilateral SI joints. No soft tissue abnormalities. XR/XR lumbar spine 2-3V IMPRESSION: 1. No acute findings of the lumbar spine. 2. Mild diffuse degenerative disc disease. Electronically signed by: Antonio Maynard MD 08/28/2024 12:32 PM EDT
--- OUTSIDE RECORDS SUMMARY | 2024-08-28 12:09 | XMS_ITS | Encounter Summary ---
Author Organization [employer] Address [address] [place] [address] [address] [place] [address] Care Team Providers Care Maintenance Dispatcher Name Role Phone Name, Segundo PETE Primary Care Provider [phone] Sandra Headley PharmD Unavailable Reason for Visit * Reason Comments Med Refill Encounter Details Date Type Department Care Team (Late st Contact Info) Description 05/18/2022 Refill [facility] [address] [place], [place] [phone] Name, MD Segundo [address] [place], [place] [id number] Chronic low back pain, unspecified back pain laterality, unspecified whether sciatica present (Primary Dx) Social History Tobacco Use Types Packs/Day Years Used Date Smoking Tobacco: Never Smokeless Tobacco: Never Depression Answer Date Recorded Patient Health Questionnaire-9 Score 5 03/05/2022 Depression Answer Date Recorded Patient Health Questionnaire-2 Score 2 03/05/2022 Comments Unknown Sex and Gender Information Value Date Recorded Sex Assigned at Female 12/22/2021 10:16 AM EDT Legal Sex Female 10:16 AM EDT Gender Identity Female 12/22/2021 10:16 AM EDT Sexual Orientation Straight 12/22/2021 10 :16 AM EDT documented as of this encounter Plan of Treatment Not on file documented as of this encounter Visit Diagnoses Diagnosis Chronic low back pain, unspecified back pain laterality, unspecified whether sciatica present- Primary documented in this encounter Additional Health Concerns Assessment Noted Time PHQ-9 Depression Total Score: 5 03/05/19 23 11:06 AM EST documented as of this encounter Care Teams Maintenance Dispatcher Relationship Specialty Start Date End Date Name, MD [address] [place] [address] PCP - General Family Medicine 07/09/15 Sandra Headley PharmD [address] [place] [address] Pharmacist Internal Medicine 08/19/21 06/17/22 documented as of this encounter
== END 2024-08-28 11:12 | disposition home or self-care (01) ==
LOC: HO.HHCX 11:11
PROVIDERS: PCP Internal Medicine Geriatric Medicine; Visit Provider Internal Medicine Geriatric Medicine
DX: M54.50 Low back pain, unspecified (principal); G89.29 Other chronic pain
CPT/HCPCS: 72100

== ENCOUNTER → 2024-08-28 11:34 | Outpatient (BNV) | payer MEDICARE, MEDICAID, SELFPAY | PROVIDERS: PCP Internal Medicine Geriatric Medicine; Visit Provider Radiology Diagnostic Radiology | DX: M54.50 Low back pain, unspecified (principal); G89.29 Other chronic pain | CPT/HCPCS: 72100 ==

== ENCOUNTER 2024-09-14 11:46 | Outpatient (AMB) | payer MEDICARE, MEDICAID, SELFPAY ==
--- NOTE | 2024-09-14 11:52 | A.OFFVIS_ITS ---
Vital Signs 09/14/24 11:54 Height 5 ft 2 in Weight 142 lb BMI 26.0 BP 146/71 H Blood Pressure Location Lt brachial Position Sitting Respiration 18 Pulse 82 Pulse Source Pulse Oximeter Pulse Oximetry (%) 98 Oxygen Delivery Method Room Air Intake Visit Reasons: FU on low back pain President And Chief Executive Officer Required: Yes President And Chief Executive Officer Services: President And Chief Executive Officer Present President And Chief Executive Officer Name: [id number] Allergies pollen extracts Allergy (Verified 09/14/24 11:52) Nasal congestion HPI Comments Details: Jen is back in my office after significant period of absence again. She reports continued pain in the lower back. The x-ray of the lumbar spine remarkably no unimpressive. On physical exam there are still signs of sacroiliac joint problems on the right. In the past she received diagnostic sacroiliac joint innervation injection which gave her pain relief for 3 months. I offered her today to go for aquatic sacroiliac joint injection, she insists on having this procedure under general anesthesia. I will schedule her accordingly. As of her left hip pain her x-ray of the left hip is almost completely normal. I will send her for physical therapy for the left hip pain. Prior: returned to my office after more than 1 year of absence. She continues to complain on pain in the right hip joint however last time 1 year ago x-ray of the right hip joint demonstrated only cam deformity and not much of the hip arthritis. There were also not much of the changes in projection of the trochanteric bursa. And yet patient is convinced that she has pain she experiences coming from the hip joint. History of the sacroiliac joint problem is described as below. I sent her on her insistence to the another right hip x- ray and we are still waiting for official report. I examined that x-ray myself and did not find any major changes which would be evident of arthritis. She also reported today pain in the projection of the mid axillary line ?where my bra strap is. ?Most likely this is muscular spasm. I decided to send her for physical therapy and started her on baclofen. She adamantly refused to go for physical therapy but she agreed to start baclofen. The prescription of the baclofen see as below. We agreed that I will see her in 3 weeks probably by then the x-ray reading will be ready. Prior: SIJ innervation diagnostic injection was performed for her in the past twice.?? in the past she was a subject of trial of the peripheral nerve stimulation stim wave and got good results however refused to go for implantation and instead requested to perform diagnostic injection again.? ? She had the trial of sacroiliac joint innervation peripheral nerve stimulation stim wave.? She reported pain relieve from 9/10 to 2/10 while being stimulated however she is not very eager to have implant of the device.? She was asking me about other options.? I explained to her about radiofrequency ablation of the sacroiliac joint innervation as well as potential sacroiliac joint fusion. She had SI joint innervation injection with very good results of 100% pain relief for for 6 hours and following several days of 80% pain relieve. Prior:? History of? lower back pain.? She has a 30 year history of lower back pain, without any inciting events. She denies surgical spinal procedures She describes a pressure in her lower back with stinging and burning radiation down lateral right leg, extending to lateral ankle. She was treated previously for this at [place] with PT and what sounds to be ESIs. She states PT did not help, and injections only helped for about a month each, with side effect of hyperglycemia.? She is very brittle diabetic. She was sent for an MRI by Ms. Eli.? The report of the MRI is as below.? She had PT without success and she is taking gabapentin without significant pain relief. The possibility to treat this patient with different approaches as above was discussed again today [facility] Medical History Diverticulosis Diabetes GERD (gastroesophageal reflux disease) Asthma Anxiety Vertigo Migraine with aura Endometrioma of ovary Chronic pain syndrome Sacroiliitis Low back pain Spondylosis of lumbosacral spine without myelopathy Surgical History Hx of colonoscopy S/P placement of nerve stimulator History of esophagogastroduodenoscopy (EGD) Hx of tubal ligation Hx of section Family History Maternal Aunt Breast cancer Social History (System 09/30/23 @ 16:31 by Lora Louise) Household Members: Significant Other and Family Are you a primary customer care coordinator to a significant other at home: No Do you presently have visiting nurse or other home services: No Alcohol intake: never Patient Tobacco Use Status: Former Tobacco user Tobacco use type: Cigarette Female Reproductive History Menstrual Age of Menarche: 12 Review of Systems Const All systems reviewed & are unremarkable except as noted in HPI and below Neuro Denies Sensory deficit (Neuro) Physical Exam Vital Signs: Last Vital Signs Pulse 82 09/14/24 11:54 Resp 18 09/14/24 11:54 BP 146/71 H 09/14/24 11:54 Pulse Ox 98 09/14/24 11:54 Oxygen Delivery Method Room Air 09/14/24 11:54 BMI result Body Mass Index 26.0 Const General: cooperative, healthy appearing, comfortable and no acute distress Eyes EOM: EOMs intact bilaterally Chest Chest palpation & inspection: normal inspection of the chest Resp Effort & Inspection: normal respiratory effort, able to speak in complete sentences, normal respiratory pattern, no audible wheezes and no cough Cardio Jugular venous distension: no JVD Back/Spine/Pelvis Other: tenderness on palpation in paraspinal spinal region in lumbar spine. S special tenderness noted in the projection of the right sacroiliac joint. Ari test is positive. Pelvic compression test is positive. Gaenslen test is positive on the right Rebel finger test is positive. Loading test is positive. Range of motion in lumbar spine is preserved. . Neuro Sensory Exam: No Sensory deficit (Neuro) Extrem Other: Lateral rotation of the left hip causes severe discomfort in the groin. Psych Attitude: cooperative Results Reviewed Results Reviewed: Hip x-ray right three views. 06/30/2022: Right hip osteoarthritis Findings: Bone alignment is normal. No fracture or dislocation. There is increase lateral coverage of the femoral heads by the acetabulum or cam deformity. The hip joints are otherwise normal. There is a faint increased density adjacent to the lateral right iliac bone measuring 0.7 x 1.4 cm. It is uncertain whether this is related to bone. Ostium or is something on the overlying soft tissue. No abnormality is seen in this region on previous pelvic MRI on August 2021. This may be related to something of the soft tissue. There i s mild curvature of the lower lumbar sacral spine on the right. Soft tissue is normal. Assessment & Plan Assessment & Plan (1) Arthritis of right hip: Code(s): M16.11 - Unilateral primary osteoarthritis, right hip Category: Medical (2) Left hip pain: Code(s): M25.552 - Pain in left hip Category: Medical (3) Sacroiliitis: Code(s): M46.1 - Sacroiliitis, not elsewhere classified Category: Medical (4) Sacroiliac joint dysfunction of right side: Code(s): M53.3 - Sacrococcygeal disorders, not elsewhere classified Category: Medical Plan In the past patient received sacroiliac joint innervation injection on the right in preparation of for peripheral nerve stimulation. However when we decided to go for the procedure of preparing her for peripheral nerve stimulation she refused and requested me to perform diagnostic sacroiliac joint innervation injection again. Apparently those 2 injections relieved her pain for 3 months each time. This time she is requesting me to perform injection for her again. This time I will offer her therapeutic sacroiliac joint injection on the right under deep sedation. She is very afraid of the needles and she wants to have this injection to be done under sedation. As of her left hip pain I will send her for physical therapy. After 6 weeks of physical therapy I will evaluate her left hip pain and we will re-evaluate her condition. Orders: Orders PT Evaluation and Treatment Today M25.552 - Pain in left hip Patient Instructions: I here by testify that I spent 30 minutes in conversation with this patient as well as planning her care and organizing this note rock picker from [employer] number [phone] was helping us to maintain this conversation in [place]. Coding Level of Care Code Est Pt Level 4 (89032) Diagnoses Arthritis of right hip M16.11 Left hip pain M25.552 Sacroiliitis M46.1 Sacroiliac joint dysfunction of right side M53.3
[2024-09-14 11:54] VITALS: BP 146/71; PULSE 82; RESP 18; O2SAT 98; BMI 26.0
--- OUTSIDE RECORDS SUMMARY | 2024-09-14 12:36 | XMS_ITS | Clinical Summary ---
Author Organization [facility] Address [address] [place] [address] Care Team Providers Care Wood Heel Flap Trimmer Name Role Phone Unavailable Primary Care Provider Unavailabl e Surgical History Surgery Date Site/Laterality Comments SECTION PROCEDURE: AL DELIVERY ONLY; COMMENT: X2 TUBAL LIGATION PROCEDURE: HISTORICAL TUBAL LIGATION BREAST BIOPSY ? 3 yrs ago? Left PROCEDURE: BX BREAST; PERC NEEDLE CORE W/IMAG GUID; COMMENT: lt breast bx neg Medical History Medical History Date Comments Chronic back pain DX:Chronic more k pain Migraines DX:Migraines Type II or unspecified type diabetes mellitus with unspecified complication, not stated as uncontrolled DX:Type II or unspecified t ype diabetes mellitus with unspecified complication, not stated as uncontrolled Family History Medical History Relation Name Comments Breast cancer Aunt maternal Glaucoma Father Breast cancer Mother's side aunt Other cancer Mother's side aunt Blindness Neg Hx Cataracts Neg Hx Macular degeneration Neg Hx Strabismus Neg Hx Relation Name Status Comments Aunt Daughter Alive Father Alive CABG, dm Mother CVA Mother's side aunt Son Alive Social History Tobacco Use Types Packs/Day Years Used Date Smoking Tobacco: Never Smokeless Tobacco: Never Alcohol Use Standard Drinks/Week Comments No 0 (1 standard drink = 0.6 oz pur e alcohol) Comments Unknown Sex and Gender Information Value Date Recorded Sex Assigned at Not on file Legal Sex Female 10:43 AM EST Gender Identity Not on file Sexual Orientation Not on file Obstetrics History Plan of Treatment Health Maintenance Due Date Last Done Comments Breast Cancer Screening 1970 Hepatitis B Vaccines (1 of 3 - 19+ 3-dose series) 1989 Cervical Cancer Screening: P ap Smear 1991 DTaP,Tdap,and Td Vaccines (2 - Td or Tdap) 08/06/2019 08/05/2009 Pneumococcal Vaccine: 50+ Years (1 of 1 - PCV) 02/05/2020 Zoster Vaccines (1 of 2) 02/05/2020 010, 09/25/2009 COVID-19 Vaccine (2023-2 5 season) 2023 Depression Screening 02/23/2024 Influenza Vaccine (#1) 2024 3, 04/26/2009 Varicella Vaccines Aged Out 11/06/2009, 09/25/2009 No longer eligible based on patient's age to complete this topic HIB Vaccines Aged Out No longer eligi ble based on patient's age to complete this topic HPV Vaccines Aged Out No longer eligi ble based on patient's age to complete this topic Hepatitis A Vaccines Aged Out No long er eligible based on patient's age to complete this topic IPV Vaccines Aged Out No longer eligi ble based on patient's age to complete this topic MMR Vaccines Aged Out No longer eligi ble based on patient's age to complete this topic Meningococcal ACWY Vaccine Aged Out N o longer eligible based on patient's age to complete this topic Meningococcal B Vaccine Aged Out No l onger eligible based on patient's age to complete this topic RSV Immunization Patients Under 20 months Aged Out No longer eligible b ased on patient's age to complete this topic
--- OUTSIDE RECORDS SUMMARY | 2024-09-14 12:36 | XMS_ITS | Encounter Summary ---
Author Organization [employer] Address [address] [place] [address] [address] [place] [address] Care Team Providers Care Separator Operator Shellfish Meats Name Role Phone Name, Segundo PETE Primary Care Provider [phone] Sandra Headley PharmD Unavailable Reason for Visit * Reason Comments Med Refill Encounter Details Date Type Department Care Team (Late Contact Info) Description 05/18/2022 Refill [facility] [address] [place], [place] [id number] Name, MD Segundo [address] [place], [place] [phone] Chronic low back pain, unspecified back pain [...] as of this encounter Plan of Treatment Upcoming Encounters Date Type Department Care Team (Late st Contact Info) Description 09/27/2024 2:30 PM EDT Office Visit [facility] OPTOMETRY [address] [place] [address] Shanell Alexander, OD [address] [place] [address] documented as of this encounter Visit Diagnoses Diagnosis Chronic low back pain, unspecified back pain laterality, unspecified whether sciatica present- Primary documented in this encounter Additional Health Concerns Assessment Noted Time PHQ-9 Depression Total Score: 5 03/05/19 23 11:06 AM EST documented as of this encounter Care Teams Separator Operator Shellfish Meats Relationship Specialty Start Date End Date Name, MD Segundo [address] [place] [id number] PCP - General Family Medicine 07/09/15 Sandra Headley PharmD [address] [place] [id number] Pharmacist Internal Medicine 08/19/21 06/17/22 documented as of this encounter
== END 2024-09-14 12:38 | disposition home or self-care (01) ==
LOC: HO.PMC 11:46
PROVIDERS: PCP Internal Medicine Geriatric Medicine; Visit Provider Anesthesiology
DX: M16.11 Unilateral primary osteoarthritis, right hip (principal); M25.552 Pain in left hip; M46.1 Sacroiliitis, not elsewhere classified; M53.3 Sacrococcygeal disorders, not elsewhere classified
CPT/HCPCS: 99214

== ENCOUNTER → 2024-09-14 11:46 | Outpatient (BNVA) | payer MEDICARE, MEDICAID, SELFPAY | PROVIDERS: PCP Internal Medicine Geriatric Medicine; Visit Provider Anesthesiology | DX: M53.3 Sacrococcygeal disorders, not elsewhere classified (principal); M46.1 Sacroiliitis, not elsewhere classified; M25.552 Pain in left hip; M16.11 Unilateral primary osteoarthritis, right hip | CPT/HCPCS: 99212 ==

== ENCOUNTER 2024-10-18 13:09 | Outpatient (REF) | payer MEDICARE, MEDICAID, SELFPAY ==
--- OUTSIDE RECORDS SUMMARY | 2024-10-17 13:30 | XMS_ITS | Encounter Summary ---
Author Organization [employer] Address [address] [place] [address] [address] [place] [address] Care Team Providers Care College Director Name Role Phone Name, Segundo PETE Primary Care Provider [phone] Reason for Visit * Reason Comments Dentures Encounter Details Date Type Department Care Team ([facility] st Contact Info) Description 10/17/2024 1:30 PM EDT Office Visit [facility] D[facility] [address] [place] [address] [id number] Montrell Rivas, DMD [address] [place] [address] Social History Tobacco Use Types Packs/Day Years Used Date Smoking Tobacco: Never Smokeless Tobacco: Never Alcohol Use Standard Drinks/Week Comments Never 0 (1 standard drink = 0.6 oz pur e alcohol) Alcohol Answer Date Recorded Frequency of Alcohol Consumption Not on file 09/22/2023 Average Number of Drinks Not on file 024 Frequency of Binge Drinking Not on file 08/24 Score 0 09/22/2023 Depression Answer Date Recorded Patient Health Questionnaire-9 Score 9 08/28/2024 Patient Health Questionnaire-9 Score 9 08/28/2024 Last PHQ-9: Questionnaire Data Not on file 0 08/28/2024 Housing Stability Answer Date Recorded What is your housing situation today? I have star tolbert 08/18/[address] you li ve. Do you have problems with any of the following? Pests such as bugs, ants, or mice 08/18/2024 Food Insecurity Answer Date Recorded Within the past 12 months, y ou worried that your food would run out before you got money to buy more: Never True 09/22/2023 Within the past 12 months,th e food you bought just didn't last and you didn't have enough money to get more: Never True Transportation Answer Date Recorded In the past 12 months, has l ack of transportation kept you from medical appts, meetings, work or from getting things needed for daily living? No 09/22/2023 Utilities Answer Date Recorded In the past 12 months, has t he electric, gas, oil or water company threatened to shut off services in your home? Yes 08/18/2024 Depression Answer Date Recorded Patient Health Questionnaire-2 Score 2 08/28/2024 Internet Access Answer Date Recorded Internet Access Q1 Yes 09/23/2024 Internet Access Q2 Not on file 09/23/2024 Comments Unknown Sex and Gender Information Value Date Recorded Sex Assigned at Female 12/22/2021 10:16 AM EDT Legal Sex Female 10:16 AM EDT Gender Identity Female 12/22/2021 10:16 AM EDT Sexual Orientation Straight 12/22/2021 10 :16 AM EDT documented as of this encounter Progress Notes * Montrell Rivas DMD - 10/17/2024 1:30 PM EDT C/C: distal to #9 of P/ is too tight Trim down the distal area of denture tooth#9 of P/. Pt feels better Raji documented in this encounter Plan of Treatment Not on file documented as of this encounter Procedures Procedure Name Priority Date/Time Associated Diagnosis Comments DENTURE ADJUSTMENT Routine 10/17/2024 1:30 PM EDT documented in this encounter Visit Diagnoses Not on filedocumented in this encounter Additional Health Concerns Assessment Noted Time PHQ-9 Depression Total Score: 9 08/29/19 25 11:21 AM EDT documented as of this encounter Care Teams College Director Relationship Specialty Start Date End Date Name, MD Segundo [address] [place] [address] PCP - General Family Medicine 07/09/15 documented as of this encounter
--- OUTSIDE RECORDS SUMMARY | 2024-10-18 13:49 | XMS_ITS | Encounter Summary ---
Author Organization [employer] Address [address] [place] [address] [address] [place] [address] Care Team Providers Care Senior Embedded Software Engineer Name Role Phone Name, Segundo PETE Primary Care Provider [phone] Sandra Headley PharmD Unavailable [phone] Reason for Visit * Reason Comments Med Refill Encounter Details Date Type Department Care Team (Late st Contact Info) Description 05/18/2022 Refill [facility] [address] [place], [place] [phone] Name, MD Segundo [address] [place], [place] [phone] Chronic low back pain, unspecified back pain [...] documented as of this encounter Care Teams Senior Embedded Software Engineer Relationship Specialty Start Date End Date Name, MD Segundo [address] [place] [address] PCP - General Family Medicine 07/09/15 Sandra Headley PharmD [address] [place] [address] Pharmacist Internal Medicine 08/19/21 06/17/22 documented as of this encounter
--- OUTSIDE RECORDS SUMMARY | 2024-10-18 13:49 | XMS_ITS | Encounter Summary ---
Author Organization [employer] Address [address] [place] [address] [address] [place] [address] Care Team Providers Care Real Estate Associate Attorney Name Role Phone Name, Segundo PETE Primary Care Provider [phone] Reason for Visit * Reason Comments Med Refill Encounter Details Date Type Department Care Team (Late st Contact Info) Description 03/04/2023 Refill [facility] MEDIC[facility] [address] [place] [address] Natalie Love FNP [address] [place] [address] Migraine without status migrainosus, not intractable, unspecified migraine type Social History Tobacco Use Types Packs/Day Years Used Date Smoking Tobacco: Never Smokeless Tobacco: Never Alcohol Use Standard Drinks/Week Comments Never 0 (1 standard drink = 0.6 oz pur e alcohol) Depression Answer Date Recorded Patient Health Questionnaire-9 Score 5 03/05/2022 Housing Stability Answer Date Recorded What is your housing situation today? I have star tolbert 12/14/[address] you li ve. Do you have problems with any of the following? None of the above 12/14/2022 Food Insecurity Answer Date Recorded Within the past 12 months, y ou worried that your food would run out before you got money to buy more: Never True 12/14/2022 Within the past 12 months,th e food you bought just didn't last and you didn't have enough money to get more: Never True Transportation Answer Date Recorded In the past 12 months, has l ack of transportation kept you from medical appts, meetings, work or from getting things needed for daily living? No 12/14/2022 Utilities Answer Date Recorded In the past 12 months, has t he electric, gas, oil or water company threatened to shut off services in your home? No 12/14/2022 Depression Answer Date Recorded Patient Health Questionnaire-2 [...] as of this encounter Visit Diagnoses Diagnosis Migraine without status migrainosus, not intractable, unspecified migraine type documented in this encounter Additional Health Concerns Assessment Noted Time PHQ-9 Depression Total Score: 5 03/05/19 23 11:06 AM EST documented as of this encounter Care Teams Real Estate Associate Attorney Relationship Specialty Start Date End Date Name, MD Segundo [address] [place] [id number] PCP - General Family Medicine 07/09/15 documented as of this encounter
--- OUTSIDE RECORDS SUMMARY | 2024-10-18 13:49 | XMS_ITS | Encounter Summary ---
Author Organization [employer] Address [address] [place] [address] 7[address] [place] [address] Care Team Providers Care Dairy Feed Mixing Operator Name Role Phone Name, Segundo PETE Primary Care Provider [phone] Sandra Headley PharmD Unavailable [phone] Encounter Details Date Type Department Care Team (Latest Contact Info) Description 04/04/2020 Abstract [facility] CONVERSIONS Dental, Provider, DDS Social History Tobacco Use Types Packs/Day Years Used Date Smoking Tobacco: Never Assessed Comments Unknown Sex and Gender Information Value Date Recorded Sex Assigned at Female 12/22/2021 10:16 AM EDT Legal Sex Female 10:16 AM EDT Gender Identity Female 12/22/2021 10:16 AM EDT Sexual Orientation Straight 12/22/2021 10 :16 AM EDT documented as of this encounter Plan of Treatment Not on file documented as of this encounter Visit Diagnoses Not on filedocumented in this encounter Care Teams Dairy Feed Mixing Operator Relationship Specialty Start Date End Date Name, MD Segundo [address] [place] [address] PCP - General Family Medicine 07/09/15 Sandra Headley, PharmD [address] [place] [address] Pharmacist Internal Medicine 08/19/21 06/17/22 documented as of this encounter
--- OUTSIDE RECORDS SUMMARY | 2024-10-18 13:49 | XMS_ITS | Encounter Summary ---
Author Organization [employer] Address [address] [place] [address] [address] [place] [address] Care Team Providers Care Licensed Bondsman Name Role Phone Name, Segundo PETE Primary Care Provider [phone] Encounter Details Date Type Department Care Team (Late st Contact Info) Description 06/18/2022 Orders Only [facility] MEDICINE [address] [place] [address] Sandra Headley, PharmD [address] [place] [address] Social History Tobacco Use Types Packs/Day Years [...] Orientation Straight 12/22/2021 10 :16 AM EDT COVID-19 Exposure Response Date Recorded In the last 10 days, have yo u been in contact with someone who was confirmed or suspected to have Coronavirus/COVID-19? No / Unsure 06/16/2022 1:50 PM EDT documented as of this encounter Plan of Treatment Not on file documented as of this encounter Visit Diagnoses Not on filedocumented in this encounter Additional Health Concerns Assessment Noted Time PHQ-9 Depression Total Score: 5 03/05/19 23 11:06 AM EST documented as of this encounter Care Teams Licensed Bondsman Relationship Specialty Start Date End Date Name, MD Segundo [address] [place] [address] PCP - General Family Medicine 07/09/15 documented as of this encounter
--- OUTSIDE RECORDS SUMMARY | 2024-10-18 13:49 | XMS_ITS | Encounter Summary ---
Author Organization [employer] Address [address] [place] [address] [address] [place] [address] Care Team Providers Care Post Acute Care Nurse Practitioner Name Role Phone NameSegundo MD Primary Care Provider [phone] Reason for Visit * Reason Comments Med Refill Encounter Details Date Type Department Care Team ([facility] st Contact Info) Description 01/07/2023 Refill [facility] MEDICINE [address] [place] [address] Name, MD Segundo [address] [place] [address] Social History Tobacco Use Types Packs/Day Years [...] documented as of this encounter Care Teams Post Acute Care Nurse Practitioner Relationship Specialty Start Date End Date Name, MD Segundo [address] [place] [id number] PCP - General Family Medicine 07/09/15 documented as of this encounter
--- OUTSIDE RECORDS SUMMARY | 2024-10-18 13:49 | XMS_ITS | Encounter Summary ---
Author Organization [employer] Address [address] [place] [address] 7t [place] [address] Care Team Providers Care Electrical Engineering Intern Name Role Phone Name, Segundo PETE Primary Care Provider [phone] Reason for Visit * Reason Comments Med Refill Encounter Details Date Type Department Care Team ([facility] st Contact Info) Description 12/14/2022 Refill [facility] MEDICINE [address] [place] [address] Rajwinder Stevens, NET DEVELOPER ARCHITECT [address] [place] [address] Chronic pain syndrome Social History Tobacco Use Types Packs/Day Years [...] of this encounter Visit Diagnoses Diagnosis Chronic pain syndrome documented in this encounter Additional Health Concerns Assessment Noted Time PHQ-9 Depression Total Score: 5 03/05/19 23 11:06 AM EST documented as of this encounter Care Teams Electrical Engineering Intern Relationship Specialty Start Date End Date Name, MD Segundo [address] [place] [id number] PCP - General Family Medicine 07/09/15 documented as of this encounter
--- OUTSIDE RECORDS SUMMARY | 2024-10-18 13:49 | XMS_ITS | Encounter Summary ---
Author Organization [employer] Address [address] [place] [address] 7t [place] [address] Care Team Providers Care Site Head Name Role Phone Name, Segundo PETE Primary Care Provider [phone] Reason for Visit * Reason Comments Med Refill Encounter Details Date Type Department Care Team (Late st Contact Info) Description 05/19/2023 Refill [facility] MEDICINE [address] [place] [address] Name, MD Segundo [address] [place] [address] Chronic low back pain, unspecified back pain laterality, unspecified whether sciatica present Social History Tobacco Use Types Packs/Day Years [...] AM EDT documented as of this encounter Miscellaneous Notes * Telephone Encounter - Maggi Mcfadden RN - 05/19/2023 11:47 AM EDT Request received for med refill for inactive Tramadol 50 mg. T/C to pt for status check via [facility] #[id number]. No answer, v/m left to return call to [place] team nurses. documented in this encounter Plan of Treatment Not on file documented as of this encounter Visit Diagnoses Diagnosis Chronic low back pain, unspecified back pain laterality, unspecified whether sciatica present documented in this encounter Additional Health Concerns Assessment Noted Time PHQ-9 Depression Total Score: 5 03/05/19 23 11:06 AM EST documented as of this encounter Care Teams Site Head Relationship Specialty Start Date End Date Name, MD Segundo [address] [place] [id number] PCP - General Family Medicine 07/09/15 documented as of this encounter
--- OUTSIDE RECORDS SUMMARY | 2024-10-18 13:49 | XMS_ITS | Encounter Summary ---
Author Organization [employer] Address [address] [place] [address] 7t [place] [address] Care Team Providers Care Mandarin Chinese Teacher Name Role Phone Name, Segundo PETE Primary Care Provider [phone] Reason for Visit * Reason Onset Date Comments Appointment Request 01/07/2023 Encounter Details Date Type Department Care Team ([facility] st Contact Info) Description 01/07/2023 Telephone [facility] MEDICINE [address] [place] [address] Name, MD Segundo [address] [place] [address] Appointment Request Social History Tobacco Use Types Packs/Day Years [...] encounter Miscellaneous Notes * Telephone Encounter - Susanna Contreras - 01/07/2023 12:09 PM EST Tc from pt stating that See her every 3 months. Wheel And Axle Inspector don't nothing on last visit neither recall list. PCP Name documented in this encounter Plan of Treatment Not on file documented as of this encounter Visit Diagnoses Not on filedocumented in this encounter Additional Health Concerns Assessment Noted Time PHQ-9 Depression Total Score: 5 03/05/19 23 11:06 AM EST documented as of this encounter Care Teams Mandarin Chinese Teacher Relationship Specialty Start Date End Date Name, MD Segundo [address] [place] [address] PCP - General Family Medicine 07/09/15 documented as of this encounter
--- OUTSIDE RECORDS SUMMARY | 2024-10-18 13:49 | XMS_ITS | Encounter Summary ---
Author Organization [employer] Address [address] [place] [address] [address] [place] [address] Care Team Providers Care Laboratory Inspector Name Role Phone Name, Segundo PETE Primary Care Provider [phone] Sandra Headley PharmD Unavailable [phone] Reason for Visit * Reason Comments Med Refill Encounter Details Date Type Department Care Team (Late st Contact Info) Description 03/16/2022 Refill [facility] MEDICINE [address] [place], [place] [phone] Name, MD Segundo [address] [place], [place] [phone] Exacerbation of chronic back pain; Radicular syndrome of right leg Social History Tobacco Use Types Packs/Day Years [...] suspected to have Coronavirus/COVID-19? No / Unsure 03/05/2022 10:51 AM EST documented as of this encounter Plan of Treatment Not on file documented as of this encounter Visit Diagnoses Diagnosis Exacerbation of chronic back pain Radicular syndrome of right leg documented in this encounter Additional Health Concerns Assessment Noted Time PHQ-9 Depression Total Score: 5 03/05/19 23 11:06 AM EST documented as of this encounter Care Teams Laboratory Inspector Relationship Specialty Start Date End Date Name, MD Segundo [address] [place] [address] PCP - General Family Medicine 07/09/15 Sandra Headley, VirgenD [address] [place] [address] Pharmacist Internal Medicine 08/19/21 06/17/22 documented as of this encounter
--- OUTSIDE RECORDS SUMMARY | 2024-10-18 13:49 | XMS_ITS | Encounter Summary ---
Author Organization [employer] Address [address] [place] [address] [address] [place] [address] Care Team Providers Care District Commercial Superintendent Name Role Phone NameSegundo MD Primary Care Provider [phone] Encounter Details Date Type Department Care Team (Late st Contact Info) Description 08/04/2022 Abstract [facility] MEDICINE [address] [place] [address] Name, MD Segundo [address] [place] [address] Social History Tobacco Use Types Packs/Day Years [...] Procedure Name Priority Date/Time Associated Diagnosis Comments COLONOSCOPY Routine 11/14/2021 10:32 AM EDT PAP/HPV Routine 05/28/2021 documented in this encounter Results * Hm Colonoscopy (11/14/2021 10:32 AM EDT) Colonoscopy Normal Normal Narrative Surekha Lo - 11/14/2021 10:32 AM EDT Recommended 5 year follow up Historical Provider HEALTH MAINTENANCE Final Result * Hm Pap Smear (05/28/2021) Pap Negative for intraephithelial lesion or malignancy Negative for intraephithelial lesion or malignancy, Other HPV Undetected 05/28/2021 Historical Provider HEALTH MAINTENANCE Final Result documented in this encounter Visit Diagnoses Not on filedocumented in this encounter Additional Health Concerns Assessment Noted Time PHQ-9 Depression Total Score: 5 03/05/19 23 11:06 AM EST documented as of this encounter Care Teams District Commercial Superintendent Relationship Specialty Start Date End Date Name, MD Segundo [address] [place] [address] PCP - General Family Medicine 07/09/15 documented as of this encounter
--- OUTSIDE RECORDS SUMMARY | 2024-10-18 13:49 | XMS_ITS | Clinical Summary ---
Author Organization [employer] Address [address] [place] [address] [address] [place] [address] Care Team Providers Care Net Sql Developer Name Role Phone Name, Segundo PETE Primary Care Provider [phone] Allergies Active Allergy Reactions Criticality Noted Date Comments Dulaglutide 12/03/2020 Other reaction(s): Nausea / Vomiting Sitagliptin 08/03/2016 Other reaction(s): nausea, stomach pain and dizzy Medications albuterol 108 (90 Base) MCG/ACT inhaler inhale 2 puff by inhalation route every 4 - 6 hours as needed 11/26/19 21 Active docusate sodium (Colace) 100 MG capsule Take 1 capsule by mouth at bedtime. Active famotidine (Pepcid) 40 MG tablet Take 1 tablet by mouth in the morning. Active fluticasone (Flonase) 50 MCG/ACT nasal spray Use 1 spray in each nostril daily as needed 12/07/19 21 Active fluticasone (Flovent) 110 MCG/ACT inhaler Inhale 1 puff every 12 (twelve) hours. 10/23/19 22 Active ketoconazole (NIZOral) 2 % shampoo apply by topical route 2 times weekly to the affected area(s), lather, leave in place for 5 minutes, and then rinse off with water 08/20/19 22 Active norethindrone (Micronor) 0.35 MG tablet Take 1 tablet by mouth 1 (one) time each day. Active polyvinyl alcohol (Liquifilm Tears) 1.4 % ophthalmic solution one drop in each eye 3 times a day 03/17/19 19 Active Bisacodyl EC 5 MG EC tablet TAKE 2 TABS AT NOON THE DAY BEFORE YOUR COLONOSCOPY 07/01/19 22 Active triamcinolone (Kenalog) 0.1 % ointment PLEASE SEE ATTACHED FOR DETAILED DIRECTIONS 05/06/19 23 Active tacrolimus (Protopic) 0.1 % ointmentIndicat ions:Eczema, dyshidrotic APPLY A THIN LAYER TO THE AFFECTED AREA(S) TWICE DAILY, RUB IN GENTLY AND COMPLETELY 60 g 2 08/13/19 23 Active meclizine (Antivert) 25 MG tablet TOME KOMAL TABLETA SWATHI VECES AL ABI CUANDO SEA NECESARIO 40 tablet 09/29/19 23 Active Blood Pressure Monitor kit Use once a day 1 kit 10/01/19 23 Active Senna-Time 8.6 MG tablet TAKE 1 TABLET (8.6 MG) BY MOUTH AT BEDTIME. 90 tablet 3 09/27/19 24 Active OneTouch Verio test strip USE RAMESH LO INDICADO DOS VECES AL ABI 100 strip 11 01/06/20 24 Active OneTouch Delica Lancets 33G miscIndications :Type 2 diabetes mellitus with other specified complication, without long-term current use of insulin ([facility]) USE TO TEST BLOOD SUGAR TWICE A DAY 100 each 11 01/13/20 24 Active ferrous sulfate 325 (65 Fe) MG tablet TOME KOMAL TABLETA POR VIA ORAL DURING MENSTURAL PERIOD 90 tablet 02/04/20 24 Active LORazepam (Ativan) 0.5 MG tablet One tab 15-30 minutes before flight 2 tablet 06/21/19 25 Active atorvastatin (Lipitor) 20 MG tabletIndicatio ns:High cholesterol TAKE 1 TABLET BY MOUTH EVERY DAY 90 tablet 1 06/21/19 25 Active hydrOXYzine HCl (Atarax) 25 MG tabletIndicatio ns:Seasonal allergies TAKE 1 TABLET BY MOUTH DAILY IF NEEDED 90 tablet 06/27/19 25 Active betamethasone dipropionate (Diprosone) 0.05 % ointment APPLY THIN COAT TO AREA TWICE A DAY 45 g 2 07/19/19 25 Active losartan (Cozaar) 25 MG tabletIndicatio ns:Primary hypertension TOME KOMAL TABLETA TODOS LOS ZARAGOZA EN LA [facility] 90 tablet 3 08/29/19 25 Active baclofen (Lioresal) 10 MG tabletIndicatio ns:Chronic low back pain, unspecified back pain laterality, unspecified whether sciatica present Take 1 tablet (10 mg) by mouth 2 times daily. 60 tablet 08/29/19 25 Active cetirizine (ZyrTEC) 10 MG tabletIndicatio ns:Seasonal allergies Take 1 tablet (10 mg) by mouth Once per day. 30 tablet 2 08/29/19 25 2024 Active metFORMIN XR (Glucophage-XR) 750 MG 24 hr tabletIndicatio ns:Type 2 diabetes mellitus without complication, without long-term current use of insulin ([facility]) Take 1 tablet (750 mg) by mouth with evening meal. Do not crush, chew, or split. 30 tablet 11 08/29/19 25 2025 Active omeprazole (PriLOSEC) [address] capsuleIndicati ons:Heartburn TAKE 1 CAPSULE BY MOUTH EVERY DAY BEFORE BREAKFAST 90 capsule 09/12/19 25 Active Fluocinolone Acetonide Scalp 0.01 % oil APPLY BY THIN LAYER TO DAMP SCALP MASSAGE WELL AND COVER LEAVE ON FOR 4 HOURS OR OVERNIGHT THEN WASH OFF USE IT FOR 5 DAYS THEN CUANDO SEA NECESARIO 118.28 mL 3 09/27/19 25 Active naproxen (Naprosyn) 500 MG tabletIndicatio ns:Chronic migraine with aura without status migrainosus, not intractable TOME 1 TABLETA POR VIA ORAL DOS VECES AL ABI 60 tablet 09/28/19 25 Active traMADol (Ultram) 50 MG tabletIndicatio ns:Chronic low back pain, unspecified back pain laterality, unspecified whether sciatica present TOME KOMAL TABLETA EN LA MANANA Y AL ACOSTARSE CUANDO SEA NECESARIO PARA EL DOLOR RAJINDER POR 28 ZARAGOZA 56 tablet 10/18/19 25 Active gabapentin (Neurontin) 800 MG tablet Take 1 tablet by mouth every 6 (six) hours during the day. 10/09/19 25 Active senna-docusate sodium (Senokot-S) 8.6-50 MG tablet Take 1 tablet by mouth Once per day. 30 tablet 11 09/22/19 24 2024 gabapentin (Neurontin) 600 MG tabletIndicatio ns:Chronic low back pain, unspecified back pain laterality, unspecified whether sciatica present TAKE 1 TABLET BY MOUTH TWICE A DAY 60 tablet 2 11/15/19 24 2024 Discontinued(T herapy completed) Fluocinolone Acetonide Scalp 0.01 % oil APPLY BY THIN LAYER TO DAMP SCALP MASSAGE WELL AND COVER LEAVE ON FOR 4 HOURS OR OVERNIGHT THEN WASH OFF USE IT FOR 5 DAYS THEN CUANDO SEA NECESARIO 118.28 mL 3 05/23/19 25 2024 Discontinued traMADol (Ultram) 50 MG tabletIndicatio ns:Chronic low back pain, unspecified back pain laterality, unspecified whether sciatica present TOME KOMAL TABLETA EN LA MANANA Y AL ACOSTARSE CUANDO SEA NECESARIO PARA EL DOLOR RAJINDER POR 28 ZARAGOZA 56 tablet 08/12/19 25 2024 Discontinued naproxen (Naprosyn) 500 MG tabletIndicatio ns:Chronic migraine with aura without status migrainosus, not intractable Take 1 tablet (500 mg) by mouth 2 times daily. 60 tablet 08/29/19 25 2024 Discontinued Active Problems Problem Noted Date Diagnosed Date Primary hypertension 09/22/2023 COVID-19 02/02/2022 Decreased hearing 02/02/2022 Drug-induced constipation 02/02/2022 Tinea pedis 12/03/2020 Psoriasis 12/31/2017 Migraine 05/24/2017 Trochanteric bursitis of both hips 05/24/2017 Right upper quadrant pain 08/03/2016 Moderate persistent asthma 05/27/2016 Eczema, dyshidrotic 03/27/2016 Depression 07/24/2014 High cholesterol 03/27/2014 Type 2 diabetes mellitus, [facility] long-term current use of insulin 08/30/2013 Fibroadenoma of breast 02/09/2012 Displacement of lumbar inter vertebral disc without myelopathy 01/20/2010 Low back pain 01/20/2010 Ovarian cyst 01/20/2010 Radiculitis, lumbosacral 11/06/2009 Seasonal allergies 04/26/2009 Encounters Date Type Department Care Team Description 10/17/2024 1:30 PM EDT Office Visit [facility] [address] [place] [address] Montrell Rivas DMD 10/16/2024 Refill [facility] [address] [place] [phone] NameSegundo MD Chronic low back pain, unspecified back pain laterality, unspecified whether sciatica present 09/27/2024 2:30 PM EDT Office Visit [facility] [address] [facility] [place] [place] [address] Benjamin, Shanell, OD Diabetes type 2, no ocular involvement (CMS/HCC) (Primary Dx); White without pressure of peripheral retina of right eye; Combined forms of age-related cataract of both eyes; Presbyopia 09/27/2024 Travel 09/26/2024 Refill [facility] [address] [place] [address] Segundo Siddiqui MD Chronic migraine with aura without status migrainosus, not intractable 09/24/2024 Refill [facility] [address] [place] [address] Segundo Siddiqui MD 09/21/2024 Refill [facility] [address] [place] [address] Segundo Siddiqui MD Chronic low back pain, unspecified back pain laterality, unspecified whether sciatica present 09/13/2024 Telephone [facility] [address] [place] [address] Segundo Siddiqui MD 09/09/2024 Refill [facility] [address] [place] [address] Segundo Siddiqui MD Heartburn 08/28/2024 10:15 AM EDT Office Visit [facility] [address] [place] [address] NameSegundo MD Routine eye exam (Primary Dx); Type 2 diabetes mellitus without complication, without long-term current use of insulin (CMS/HCC); Primary hypertension; Chronic low back pain, unspecified back pain laterality, unspecified whether sciatica present; Screening mammogram for breast cancer; Psoriasis; Chronic migraine with aura without status migrainosus, not intractable; Seasonal allergies 08/28/2024 Travel 08/24/2024 Telephone [facility] [address] [place] [address] Renetta Barraza MA Chart Prep 08/18/2024 Patient Outreach [facility] [address] [place] [address] Segundo Siddiqui MD Care Coordination (CHW outreach SDOH pest control - referral completed ) 08/18/2024 Patient Outreach [facility] [address] [place] [phone] Segundo Siddiqui MD Pre-visit Planning (SDOH screening positive and Tobacco screening negative) 08/17/2024 1:00 PM EDT Office Visit [facility] [address] [place] [phone] Ban Anthony 08/10/2024 Refill [facility] [address] [place] [address] Segundo Siddiqui MD Chronic low back pain, unspecified back pain laterality, unspecified whether sciatica present 08/04/2024 Telephone [facility] [address] [place] [phone] Segundo Siddiqui MD fyi from Last 3 Months Immunizations Immunization Administration Dates Next Due Influenza Injectable Quadriv alant Preservative Free IIV4 MDCK 01/06/2022 Influenza injectable quadriv alent IIV4 with preservative 11/25/2016,11/13/2015 Influenza injectable quadriv alent preservative free 02/01/2023,12/03/2020,02/19/2020,01/12 Influenza, IIV3, injectable 12/23/2012 Influenza, seasonal, injecta ble, preservative free 01/12/2024 Novel [id number], preservative-free 04/26/2009 PPD Test 06/23/2010 Pneumococcal Conjugate PCV 20 01/06/2022 Pneumococcal Polysaccharide PPSV23 03/24/2016 Tdap 09/03/2021,08/05/2009 Varicella 11/06/2009,09/25/2009 Zoster, Recombinant 11/05/2021,09/03/2021 Social History Tobacco Use Types Packs/Day Years Used Date Smoking Tobacco: Never Smokeless Tobacco: Never Tobacco Cessation:Counseling Given: Not Answered Alcohol Use Standard Drinks/Week Comments Never 0 [...] Orientation Straight 12/22/2021 10 :16 AM EDT Last Filed Vital Signs Vital Sign Reading Time Taken Comments Blood Pressure 150/78 08/28/2024 11:23 AM EDT Pulse 77 08/28/2024 10:24 AM EDT Temperature 36.3 C (97.4 F) 08/28/2024 10:24 AM EDT Respiratory Rate 18 08/28/2024 10:24 AM EDT Oxygen Saturation 98% 08/28/2024 10:24 AM EDT Inhaled Oxygen Concentration - - Weight 67 kg (147 lb 9.6 oz) 08/28/2024 10:24 AM EDT Height 157.5 cm (5' 2 ) 08/28/2024 10:24 AM EDT Body Mass Index 27 08/28/2024 10:24 AM EDT Plan of Treatment Health Maintenance Due Date Last Done Comments CT Colonography 1970 FIT DNA/Cologuard 1970 FIT 1970 FOBT 1970 Sigmoidoscopy 1970 Dental X-Ray: Full Mouth 10/20/2017 10/19/2014 Mammogram 08/06/2022 08/06/2020, 09/14/2018 Dental Oral Exam 08/15/2024 02/14/2024, , 09/09/2022, Additional history exists Dental Prophylaxis 08/15/2024 02/14/2024, 0 08/10/2023, 09/09/2022, Additional history exists Diabetes: Foot Exam 09/21/2024 09/22/2023, 09/22/2023, 09/22/2023, Additional history exists Influenza Vaccine (#1) 2024 , 02/01/2023, 01/06/2022, Additional history exists Diabetes: Hemoglobin A1C 11/28/2024 025, 06/20/2024, 01/12/2024, Additional history exists Dental X-Ray: Bitewings 02/14/2025 02/14/20 24, 09/09/2022, 12/23/2021, Additional history exists Depression Monitoring 02/28/2025 08/28/2024, 025 Diabetes: Urine Protein Screening 05/15/2025 05/15/2024, 10/28/2021, 10/02/2020 Lipid Panel 05/15/2025 05/15/2024, 04/2 05/2022, 03/03/2022, Additional history exists SDOH Screening 08/18/2025 08/18/2024 Alcohol/Substance Use Screening 08/28/2025 08/28/2024 COVID-19 Vaccine ( season) 2025 05/08/2020 Postponed from 10/24/2023 (Patient Refused) Disability Screening 08/28/2025 08/28/2024 HIV Screening 08/28/2025 Postponed from 1970 (Patient Refused) Hepatitis B Vaccines (1 of 3 - 19+ 3-dose series) 08/28/2025 Postponed from 1989 (Patient Refused) Hepatitis C Screening 08/28/2025 Postpo caryn from 02/05/1988 (Patient Refused) Tobacco Screening 10/17/2025 10/17/2024 Cervical Cancer Screening 05/28/2026 HPV/Cotest 05/28/2026 05/28/2021 Pap Smear 05/28/2026 05/28/2021 Eye Exam 09/27/2026 09/27/2024, 08/07/2024, 09/27/2024, Additional history exists Colonoscopy 11/14/2026 11/14/2021 Colorectal Cancer Screening 11/14/2026 DTaP/Tdap/Td Vaccines (3 - Td or Tdap) 09/04/2031 09/03/2021, 08/05/2009 RSV Patients and Patients Aged 60 years or older (1 - 1-dose 75+ series) 2045 Zoster Vaccines Completed 11/05/2021, 09/03/2021 Pneumococcal Vaccine: 50+ Years Completed 01/06/2022, 03/24/2016 HIB Vaccines Aged Out No longer eligi [...] patient's age to complete this topic Meningococcal Vaccine Aged Out No tao lenka eligible based on patient's age to complete this topic RSV under 20 months Aged Out No longe r eligible based on patient's age to complete this topic Rotavirus Vaccines Aged Out No longer eligible based on patient's age to complete this topic Procedures Procedure Name Priority Date/Time Associated Diagnosis Comments DENTURE ADJUSTMENT Routine 10/17/2024 1: 30 PM EDT XR LUMBAR SPINE 2-3 VIEWS Routine 08/28/2024 10:57 AM EDT Chronic low back pain, unspecified back pain laterality, unspecified whether sciatica present POCT GLYCATED HEMOGLOBIN, TOTAL Routine 08/28/2024 10:26 AM EDT Type 2 diabetes mellitus without complication, without long-term current use of insulin ([facility]) POCT GLUCOSE Routine 08/28/2024 10:26 AM EDT Type 2 diabetes mellitus without complication, without long-term current use of insulin ([facility]) UL PERIODONTAL SCALING AND ROOT PLANING - 1 TO 3 TEETH PER QUADRANT Routine 08/17/2024 1:00 PM EDT LIPID PANEL, STANDARD Routine 05/15/2024 11:35 AM EDT Type 2 diabetes mellitus with other specified complication, without long-term current use of insulin ([facility]) Primary hypertension High cholesterol ALBUMIN, RANDOM URINE W/CREATININE Routine 05/15/2024 11:30 AM EDT Type 2 diabetes mellitus with other specified complication, without long-term current use of insulin ([facility]) Primary hypertension High cholesterol PROPHYLAXIS - ADULT Routine 02/14/2024 1 :00 PM EST BITEWINGS - 4 RADIOGRAPHIC IMAGES Routine 02/14/2024 1:00 PM EST PERIODIC ORAL EVALUATION - ESTABLISHED PATIENT Routine 02/14/2024 1:00 PM EST HM COLONOSCOPY Routine 11/14/2021 10:32 AM EDT HM PAP/HPV Routine 05/28/2021 MAMMOGRAM GENERIC Routine 08/06/2020 12: 45 PM EDT INTRAORAL - COMPLETE SERIES OF RADIOGRAPHIC IMAGES Routine 10/19/2014 12:00 AM EDT from Last 3 Months or Most Recently Relevant to Health Maintenance Results * XR Lumbar Spine 2-3 Views (08/28/2024 10:57 AM EDT) Anatomical Region Laterality Modality Spine, L-spine Radiographic Jaqueline ging 08/28/2024 10:5 7 AM EDT Narrative 08/28/2024 12:35 PM EDT [address] [place] [address] XRay Report Signed Patient: Jen Mai MR #: [id number] : 1970 Acct:[id number] Age/Sex: 54 / F ADM Date: 08/28/24 Loc: [facility] Attending Dr: Segundo Siddiqui MD Ordering Physician: Segundo Siddiqui MD Date of Service: 08/28/24 Procedure(s): XR lumbar spine 2-3V Accession Number(s): [id number] cc: Segundo Siddiqui MD EXAMINATION: XR LUMBOSACRAL SPINE CLINICAL INFORMATION: chronic low back pain COMPARISON: 05/24/2017. MRI lumbar 11/08/2019. TECHNIQUE: Three views of the lumbosacral spine. FINDINGS: There is no scoliosis. There is a normal lordosis. There is no subluxation. There are no fractures, compression deformities, or suspicious bone lesions. There is minimal/early disc degeneration diffusely. There is normal facet alignment. No significant facet arthropathy. The sacrum is intact. Mild arthritis of the bilateral SI joints. No soft tissue abnormalities. XR/XR lumbar spine 2-3V IMPRESSION: 1. No acute findings of the lumbar spine. 2. Mild diffuse degenerative disc disease. Electronically signed by: Antonio Maynard MD 08/28/2024 12:32 PM EDT Dictated By: Antonio Maynard MD Signed By: <Electronically signed by Antonio Maynard MD in OV> 08/28/24 1232 DD/ 1057 TD/TT: 08/28/24 1100 Account Retention Representative: Procedure Note Donotuseinterpreter, Image - 08/28/2024 [facility] [address] [place] [address] XRay Report Signed Patient: eJn Mai LMR #: [id number] : 1970Acct:[id number] Age/Sex: 54 / FADM Date: 08/28/24 Loc: [facility] Attending Dr: Segundo Siddiqui MD Ordering Physician: Segundo Siddiqui MD Date of Service: 08/28/24 Procedure(s): XR lumbar spine 2-3V Accession Number(s): [id number] cc: Segundo Siddiqui MD EXAMINATION: XR LUMBOSACRAL SPINE CLINICAL INFORMATION: chronic low back pain COMPARISON: 05/24/2017. MRI lumbar 11/08/2019. TECHNIQUE: Three views of the lumbosacral spine. FINDINGS: There is no scoliosis. There is a normal lordosis. There is no subluxation. There are no fractures, compression deformities, or suspicious bone lesions. There is minimal/early disc degeneration diffusely. There is normal facet alignment. No significant facet arthropathy. The sacrum is intact. Mild arthritis of the bilateral SI joints. No soft tissue abnormalities. XR/XR lumbar spine 2-3V IMPRESSION: 1. No acute findings of the lumbar spine. 2. Mild diffuse degenerative disc disease. Electronically signed by: Antonio Maynard MD 08/28/2024 12:32 PM EDT Workstation: [id number] Dictated By: Antonio Maynard MD Signed By: <Electronically signed by Antonio Maynard MD in OV> 08/28/24 1232 DD/ 1057 TD/TT: 08/28/24 1100 Account Retention Representative: us Segundo Siddiqui MD IMG XR PROCEDURES Final Result * (ABNORMAL) POCT HGB A1C (08/28/2024 10:26 AM EDT) Hemoglobin A1C 7.5(A) 4.0 - 5.7 % QC Media Lot # [id number] Lot# Expiration Date Blood 08/28/2024 10:2 6 AM EDT us Segundo Siddiqui MD POINT OF CARE TEST ENTER/EDIT OR DERABLES Final Result * (ABNORMAL) POCT Glucose (08/28/2024 10:26 AM EDT) Glucose Blood, POC 211(A) 60 - 200 mg/dL QC Media Lot # [id number] Lot# Expiration Date ,025 Blood Capillary blood specimen / Unknown 08/28/2024 10:26 AM EDT us Segundo Siddiqui MD POINT OF CARE TEST ENTER/EDIT OR DERABLES Final Result * (ABNORMAL) Lipid Panel, Standard (05/15/2024 11:35 AM EDT) Triglycerides 89 <150 mg/dL [facility] Comment:Desirable Triglyceri de: less than 150 mg/dLBorderline High Triglyceride 150-199 mg/dLHigh Triglyceride: 200-499 mg/dLVery High Triglyceride: greater than or equal to 5OO mg/dL Cholesterol 184 <200 mg/dL [facility] Comment:Desirable Cholestero l: less than 200 mg/dLBorderline High Cholesterol: 200-239 mg/dLHigh Cholesterol: greater than 239 mg/dL LDL Cholesterol Calculated 120(H) <100 mg/dL [facility] Comment:Desirable LDL: less than 100 mg/dLNear Optimal/Above Optimal LDL: 110- 129 mg/dLBorderline High LDL: 130-159 mg/dLHigh LDL: 160-189 mg/dLVery High LDL: greater than or equal to 190 mg/dL HDL Cholesterol 47 >40 mg/dL [facility] Comment:Desirable HDL: great er than 40 mg/dL Note: This HDL assay may give artificially low results in patients with liver disease. Blood Venous blood specimen / Unknown 05/15/2024 11:35 AM EDT 05/15/2024 1:44 PM EDT us Segundo Siddiqui MD LAB BLOOD ORDERABLES Final Resul t [facility] [address] [place], [place] [phone] * Albumin, Random Urine W/Creatinine (05/15/2024 11:30 AM EDT) Creatinine, Urine 171.56 mg/dL [facility] Microalbumin Urine 48.0 mg/L [facility] Microalbum Creatinine Ratio Ur 27.9 <30 ug/mg cr [facility] Comment:Albumin/Creatinine R atio Reference Ranges: Normal: < 30 ug/mg creatinine Microalbuminuria: 30 - 300 ug/mg creatinineClinical Albuminuria: > 300 ug/mg creatinine Urine (Urine, Random) 05/15/2024 11:30 AM EDT 05/15/2024 1:09 PM EDT Segundo Siddiqui MD LAB URINE ORDERABLES Final Resul t [facility] [address] [place] [phone] * Colonoscopy (11/14/2021 10:32 AM EDT) Colonoscopy Normal Normal Narrative Surekha Lo - 11/14/2021 10:32 AM EDT Recommended 5 year follow up Historical Provider HEALTH MAINTENANCE Final Result * Pap Smear (05/28/2021) Pap Negative for intraephithelial lesion or malignancy Negative for intraephithelial lesion or malignancy, Other HPV Undetected 05/28/2021 Result [facility] Historical Provider HEALTH MAINTENANCE Final Result * Mammography Report 1 (08/06/2020 12:45 PM EDT) Anatomical Region Laterality Modality Breast Bilateral Mammography 08/06/2020 12:4 5 PM EDT Narrative 08/08/2020 8:29 AM EDT Refer to the Notes tab for result details [facility] Procedure: Mammography Report 1 Procedure Note ProviderBud MD - 05/17/2022 Refer to the Notes tab for result details [facility] Procedure: Mammography Report 1 Matilde Stephenson IMG BI PROCEDURES Final Result from Last 3 Months or Most Recently Relevant to Health Maintenance Insurance [facility] STANDARD DENTAL-[facility] MEDICAID STAND ADULT DENTAL - [facility] PPO Care Teams Net Sql Developer Relationship Specialty Start Date End Date Name, MD Segundo [address] [place] [address] [phone] PCP - General Family Medicine 07/09/15
--- OUTSIDE RECORDS SUMMARY | 2024-10-18 13:49 | XMS_ITS | Encounter Summary ---
Author Organization [employer] Address [address] [place] [address] [address] [place] [address] Care Team Providers Care Clinical Informatics Strategist Name Role Phone NameSegundo MD Primary Care Provider Reason for Visit * Reason Comments Med Refill Encounter Details Date Type Department Care Team (Late st Contact Info) Description 05/07/[address] [facility] [address] [place] [address] Name, MD Segundo [address] [place] [address] Social History Tobacco Use Types Packs/Day Years [...] Answer Date Recorded Patient Health Questionnaire-9 Score 0 09/22/2023 Patient Health Questionnaire-9 Score 0 09/22/2023 Last PHQ-9: Questionnaire Data Not on file 0 09/22/2023 Housing Stability Answer Date Recorded What is your housing situation today? I have star tolbert 09/22/[address] you li ve. Do you have problems with any of the following? None of the above 09/22/2023 Food Insecurity Answer Date Recorded Within the [...] shut off services in your home? No 09/22/2023 Depression Answer Date Recorded Patient Health Questionnaire-2 Score 0 09/22/2023 Internet Access Answer Date Recorded Internet Access Q1 No 10/25/2023 Internet Access Q2 I do not want or need it 03/2023 Comments Unknown Sex and Gender Information Value [...] Assessment Noted Time PHQ-9 Depression Total Score: 0 09/22/19 24 3:22 PM EDT documented as of this encounter Care Teams Clinical Informatics Strategist Relationship Specialty Start Date End Date Name, MD Segundo [address] [place] [address] PCP - General Family Medicine 07/09/15 documented as of this encounter
--- OUTSIDE RECORDS SUMMARY | 2024-10-18 13:49 | XMS_ITS | Encounter Summary ---
Author Organization [employer] Address [address] [place] [address] 7t [place] [address] Care Team Providers Care Core Drilling Supervisor Name Role Phone Name, Segundo PETE Primary Care Provider [phone] Sandra Headley PharmD Unavailable [phone] Encounter Details Date Type Department Care Team (Latest Contact Info) Description 08/29/2021 Abstract [facility] CONVERSIONS Dental, Provider, DDS Social History Tobacco [...] on filedocumented in this encounter Care Teams Core Drilling Supervisor Relationship Specialty Start Date End Date Name, MD Segundo [address] [place] [address] PCP - General Family Medicine 07/09/15 Sandra Headley, PharmD [address] [place] [address] Pharmacist Internal Medicine 08/19/21 06/17/22 documented as of this encounter
--- OUTSIDE RECORDS SUMMARY | 2024-10-18 13:49 | XMS_ITS | Encounter Summary ---
Author Organization [employer] Address [address] [place] [address] 7t [place] [address] Care Team Providers Care Vocal Teacher Name Role Phone NameSegundo MD Primary Care Provider [phone] Reason for Visit * Reason Comments Med Refill Encounter Details Date Type Department Care Team (Late st Contact Info) Description 10/22/2022 Refill [facility] MEDICINE [address] [place] [address] Name, MD Segundo [address] [place] [address] Exacerbation of chronic back pain; Radicular syndrome [...] documented as of this encounter Care Teams Vocal Teacher Relationship Specialty Start Date End Date Name, MD Segundo [address] [place] [address] PCP - General Family Medicine 07/09/15 documented as of this encounter
--- OUTSIDE RECORDS SUMMARY | 2024-10-18 13:49 | XMS_ITS | Clinical Summary ---
Author Organization [facility] Address [address] [place] [address] Care Team Providers Care Hydrogenation Operator Name Role Phone Unavailable Primary Care Provider Unavailabl e Surgical History Surgery Date Site/Laterality Comments SECTION PROCEDURE: [place] DELIVERY ONLY; COMMENT: X2 TUBAL LIGATION PROCEDURE: [...]
--- OUTSIDE RECORDS SUMMARY | 2024-10-18 13:49 | XMS_ITS | Encounter Summary ---
Author Organization [employer] Address [address] [place] [address] 7t [place] [address] Care Team Providers Care Compliance Coordinator Name Role Phone Name, Segundo PETE Primary Care Provider [phone] Reason for Visit * Reason Onset Date Comments Med Refill 03/08/2024 Encounter Details Date Type Department Care Team (Late st Contact Info) Description 03/08/2024 Telephone [facility] MEDICINE [address] [place] [address] Name, MD Segundo [address] [place] [address] Med Refill Social History Tobacco Use Types Packs/Day Years [...] encounter Miscellaneous Notes * Telephone Encounter - Vibha Abbott LPN - 03/08/2024 1:56 PM EST Script was sent to [facility] #[id number] on 01/06/24 with 11 refills. * Telephone Encounter - Nora Basurto - 03/08/2024 12:39 PM EST TC from pt requesting medication refill. Medications needing refill : OneTouch Verio test strip To be sent to: [facility]/pharmacy #[id number] - [place] [address] documented in this encounter Plan of Treatment Not on file documented as of this encounter Visit Diagnoses Not on filedocumented in this encounter Additional Health Concerns Assessment Noted Time PHQ-9 Depression Total Score: 0 07/31/20 24 3:22 PM EDT documented as of this encounter Care Teams Compliance Coordinator Relationship Specialty Start Date End Date Name, MD Segundo [address] [place] [address] PCP - General Family Medicine 07/09/15 documented as of this encounter
--- OUTSIDE RECORDS SUMMARY | 2024-10-18 13:49 | XMS_ITS | Encounter Summary ---
Author Organization [employer] Address [address] [place] [address] 7t [place] [address] Care Team Providers Care Slide Fastener Repairer Name Role Phone Name, Segundo PETE Primary Care Provider [phone] Reason for Visit * Reason Comments Med Refill Encounter Details Date Type Department Care Team (Late st Contact Info) Description 08/30/2022 Refill [facility] MEDICINE [address] [place] [address] Name, MD Segundo [address] [place] [address] High cholesterol; Exacerbation of chronic back pain; Radicular syndrome [...] as of this encounter Visit Diagnoses Diagnosis High cholesterol Pure hypercholesterolemia Exacerbation of chronic back pain Radicular syndrome of right leg documented in this encounter Additional Health Concerns Assessment Noted Time PHQ-9 Depression Total Score: 5 03/05/19 23 11:06 AM EST documented as of this encounter Care Teams Slide Fastener Repairer Relationship Specialty Start Date End Date Name, MD Segundo [address] [place] [address] PCP - General Family Medicine 07/09/15 documented as of this encounter
--- OUTSIDE RECORDS SUMMARY | 2024-10-18 13:49 | XMS_ITS | Encounter Summary ---
Author Organization [employer] Address [address] [place] [address] 7t [place] [address] Care Team Providers Care Scale Adjuster Name Role Phone NameSegundo MD Primary Care Provider [phone] Reason for Visit * Reason Comments Med Change Request Encounter Details Date Type Department Care Team ([facility] st Contact Info) Description 09/21/2024 Refill [facility] MEDICINE [address] [place] [address] Name, MD Segundo [address] [place] [address] Chronic low back pain, unspecified back pain [...] documented as of this encounter Care Teams Scale Adjuster Relationship Specialty Start Date End Date Name, MD Segundo [address] [place] [address] PCP - General Family Medicine 07/09/15 documented as of this encounter
--- OUTSIDE RECORDS SUMMARY | 2024-10-18 13:49 | XMS_ITS | Encounter Summary ---
Author Organization [employer] Address [address] [place] [address] 7t [place] [address] Care Team Providers Care Dredge Pump Operator Name Role Phone Name, Segundo PETE Primary Care Provider [phone] Sandra Headley PharmD Unavailable [phone] Reason for Visit * Reason Comments Med Refill Encounter Details Date Type Department Care Team (Late st Contact Info) Description 04/15/2022 Refill [facility] MEDICINE [address] [place], [place] [phone] Name, MD Segundo [address] [place], [place] [phone] Exacerbation of chronic back pain; Radicular syndrome [...] documented as of this encounter Care Teams Dredge Pump Operator Relationship Specialty Start Date End Date Name, MD Segundo [address] [place] [address] PCP - General Family Medicine 07/09/15 Sandra Headley PharmD [address] [place] [address] Pharmacist Internal Medicine 08/19/21 06/17/22 documented as of this encounter
--- OUTSIDE RECORDS SUMMARY | 2024-10-18 13:49 | XMS_ITS | Encounter Summary ---
Author Organization [employer] Address [address] [place] [address] 7t [place] [address] Care Team Providers Care Base Manager Name Role Phone Name, Segundo PETE Primary Care Provider [phone] Reason for Visit * Reason Onset Date Comments fyi 08/04/2024 Encounter Details Date Type Department Care Team ([facility] st Contact Info) Description 08/04/2024 Telephone [facility] MEDICINE [address] [place] [address] Name, MD Segundo [address] [place] [address] fy Social History Tobacco Use Types Packs/Day Years [...] encounter Miscellaneous Notes * Telephone Encounter - Stephani Baker RN - 08/04/2024 2:36 PM EDT Pt scheduled for physical with PCP on 08/28/24. 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 Follow-up with PCP is recommended for referral to an eyelet maker. If any questions contact Cristina - [phone] documented in this encounter Plan of Treatment Not on file documented as of this encounter Visit Diagnoses Not on filedocumented in this encounter Additional Health Concerns Assessment Noted Time PHQ-9 Depression Total Score: 0 09/22/19 24 3:22 PM EDT documented as of this encounter Care Teams Base Manager Relationship Specialty Start Date End Date Name, MD Segundo [address] [place] [address] PCP - General Family Medicine 07/09/15 documented as of this encounter
--- OUTSIDE RECORDS SUMMARY | 2024-10-18 13:49 | XMS_ITS | Encounter Summary ---
Author Organization [employer] Address [address] [place] [address] 7t [place] [address] Care Team Providers Care Physician Assistant Certified Name Role Phone NameSegundo MD Primary Care Provider [phone] Reason for Visit * Reason Comments Med Refill Encounter Details Date Type Department Care Team (Late st Contact Info) Description 10/16/[address] [facility] MEDICINE [address] [place] [address] Name, MD Segundo [address] [place] [address] Chronic low back pain, unspecified back pain [...] documented as of this encounter Care Teams Physician Assistant Certified Relationship Specialty Start Date End Date Name, MD Segundo [address] [place] [address] PCP - General Family Medicine 07/09/15 documented as of this encounter
--- OUTSIDE RECORDS SUMMARY | 2024-10-18 13:49 | XMS_ITS | Encounter Summary ---
Author Organization [employer] Address [address] [place] [address] 7 [place] [address] Care Team Providers Care Furnace Combustion Analyst Name Role Phone Name, Segundo PETE Primary Care Provider [phone] Reason for Visit * Reason Comments Med Refill Encounter Details Date Type Department Care Team (Late st Contact Info) Description 08/30/2022 Refill [facility] MEDICINE [address] [place], [place] [phone] Rajwinder Stevens, CULLET WASHER [address] [place], [place] [phone] Heartburn Social History Tobacco Use Types Packs/Day Years [...] as of this encounter Visit Diagnoses Diagnosis Heartburn documented in this encounter Additional Health Concerns Assessment Noted Time PHQ-9 Depression Total Score: 5 03/05/19 23 11:06 AM EST documented as of this encounter Care Teams Furnace Combustion Analyst Relationship Specialty Start Date End Date Name, MD Segundo [address] [place] [address] PCP - General Family Medicine 07/09/15 documented as of this encounter
--- OUTSIDE RECORDS SUMMARY | 2024-10-18 13:49 | XMS_ITS | Encounter Summary ---
Author Organization [employer] Address [address] [place] [address] 7t [place] [address] Care Team Providers Care Machine Printer Hose Name Role Phone Name, Segundo PETE Primary Care Provider [phone] Sandra Headley PharmD Unavailable [phone] Encounter Details Date Type Department Care Team (Latest Contact Info) Description 04/13/2018 Abstract [facility] CONVERSIONS Dental, Provider, DDS Social History [...] on filedocumented in this encounter Care Teams Machine Printer Hose Relationship Specialty Start Date End Date Name, MD Segundo [address] [place] [address] PCP - General Family Medicine 07/09/15 Sandra Headley, PharmD [address] [place] [address] Pharmacist Internal Medicine 08/19/21 06/17/22 documented as of this encounter
--- OUTSIDE RECORDS SUMMARY | 2024-10-18 13:49 | XMS_ITS | Encounter Summary ---
Author Organization [employer] Address [address] [place] [address] 7 [place] [address] Care Team Providers Care Podiatry Professor Name Role Phone NameSegundo MD Primary Care Provider [phone] Reason for Visit * Reason Comments Med Refill Encounter Details Date Type Department Care Team (Late st Contact Info) Description 08/07/2022 Refill [facility] [address] [place] [address] NameSegundo MD [address] [place] [address] Social History Tobacco Use Types Packs/Day Years [...] documented as of this encounter Care Teams Podiatry Professor Relationship Specialty Start Date End Date NameSegundo MD [address] [place] [address] PCP - General Family Medicine 07/09/15 documented as of this encounter
== END 2024-10-18 13:10 | disposition home or self-care (01) ==
LOC: HO.MAMMO 13:09
PROVIDERS: PCP Internal Medicine Geriatric Medicine; Visit Provider Internal Medicine Geriatric Medicine
DX: Z12.31 Encounter for screening mammogram for malignant neoplasm of breast (principal)
CPT/HCPCS: 77063; 77067

== ENCOUNTER → 2024-10-18 13:30 | Outpatient (BNV) | payer MEDICARE, MEDICAID, SELFPAY | PROVIDERS: PCP Internal Medicine Geriatric Medicine; Visit Provider Radiology Body Imaging | DX: Z12.31 Encounter for screening mammogram for malignant neoplasm of breast (principal) | CPT/HCPCS: 77063; 77067 ==

== ENCOUNTER 2024-11-03 10:15 | Day surgery (SDC) | payer MEDICARE, MEDICAID, SELFPAY ==
--- OUTSIDE RECORDS SUMMARY | 2024-10-24 15:27 | XMS_ITS | Encounter Summary ---
Author Organization [employer] Address [address] [place] [address] 7t [place] [address] Care Team Providers Care Cabin Supervisor Name Role Phone Name, Segundo PETE Primary Care Provider Sandra Headley PharmD Unavailable Reason for Visit * Reason Comments Med Refill Encounter Details Date Type Department Care Team (Late st Contact Info) Description 05/18/2022 Refill [facility] [address] [place], [place] [phone] Name, MD Segundo [address] [place], [place] [phone] Chronic low back pain, unspecified back pain [...] documented as of this encounter Care Teams Cabin Supervisor Relationship Specialty Start Date End Date Name, MD Segundo [address] [place] [address] PCP - General Family Medicine 07/09/15 Sandra Headley PharmD [address] [place] [address] Pharmacist Internal Medicine 08/19/21 06/17/22 documented as of this encounter
--- OUTSIDE RECORDS SUMMARY | 2024-10-24 15:28 | XMS_ITS | Encounter Summary ---
Author Organization [employer] Address [address] [place] [address] 7t [place] [address] Care Team Providers Care Esl Teacher Name Role Phone Name, Segundo PETE Primary Care Provider Sandra Headley PharmD Unavailable [phone] Reason for Visit * Reason Comments Med Refill Encounter Details Date Type Department Care Team (Late st Contact Info) Description 04/15/2022 Refill [facility] MEDICINE [address] [place], [place] [phone] Name, MD Segundo [address] [place], [place] [phone] Exacerbation of chronic back pain; Radicular syndrome [...] documented as of this encounter Care Teams Esl Teacher Relationship Specialty Start Date End Date Name, MD Segundo [address] [place] [address] PCP - General Family Medicine 07/09/15 Sandra Headley PharmD [address] [place] [address] Pharmacist Internal Medicine 08/19/21 06/17/22 documented as of this encounter
--- OUTSIDE RECORDS SUMMARY | 2024-10-24 15:28 | XMS_ITS | Encounter Summary ---
Author Organization [employer] Address [address] [place] [address] 7t [place] [address] Care Team Providers Care Apparel Stock Checker Name Role Phone Name, Segundo PETE Primary Care Provider [phone] Sandra Headley PharmD Unavailable [phone] Encounter Details Date Type Department Care Team (Latest Contact Info) Description 04/04/2020 Abstract [facility] CONVERSIONS Dental, Provider, DDS Social History Tobacco [...] on filedocumented in this encounter Care Teams Apparel Stock Checker Relationship Specialty Start Date End Date Name, MD Segundo [address] [place] [address] PCP - General Family Medicine 07/09/15 Sandra Headley, PharmD [address] [place] [address] Pharmacist Internal Medicine 08/19/21 06/17/22 documented as of this encounter
--- OUTSIDE RECORDS SUMMARY | 2024-10-24 15:28 | XMS_ITS | Encounter Summary ---
Author Organization [employer] Address [address] [place] [address] 7t [place] [address] Care Team Providers Care Banana Carrier Name Role Phone NameSegundo MD Primary Care Provider Encounter Details Date Type Department Care Team (Late st Contact Info) Description 08/04/2022 Abstract [facility] MEDICINE [address] [place] [address] Name, MD Segundo [address] [place] [address] Social History Tobacco Use Types Packs/Day Years [...] documented as of this encounter Care Teams Banana Carrier Relationship Specialty Start Date End Date Name, MD Segundo [address] [place] [address] PCP - General Family Medicine 07/09/15 documented as of this encounter
--- OUTSIDE RECORDS SUMMARY | 2024-10-24 15:28 | XMS_ITS | Encounter Summary ---
Author Organization [employer] Address [address] [place] [address] 7t [place] [address] Care Team Providers Care Inside Phone Sales Name Role Phone Name, Segundo PETE Primary Care Provider [phone] Reason for Visit * Reason Onset Date Comments fyi 08/04/2024 Encounter Details Date Type Department Care Team ([facility] st Contact Info) Description 08/04/2024 Telephone [facility] MEDICINE [address] [place] [address] Name, MD Segundo [address] [place] [address] fyi Social History Tobacco Use Types Packs/Day Years [...] appointment notes that pt will need referralto screening specialist due to eye screening that showed 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 Follow-up with PCP is recommended for referral to an screening specialist. If any questions contact Cristina - [phone] documented in this encounter Plan of Treatment Not on file documented as of this encounter Visit Diagnoses Not on filedocumented in this encounter Additional Health Concerns Assessment Noted Time PHQ-9 Depression Total Score: 0 09/22/19 24 3:22 PM EDT documented as of this encounter Care Teams Inside Phone Sales Relationship Specialty Start Date End Date Name, MD Segundo [address] [place] [address] PCP - General Family Medicine 07/09/15 documented as of this encounter
--- OUTSIDE RECORDS SUMMARY | 2024-10-24 15:28 | XMS_ITS | Encounter Summary ---
Author Organization [employer] Address [address] [place] [address] 7t [place] [address] Care Team Providers Care Photo Checker And Assembler Name Role Phone Name, Segundo PETE Primary Care Provider [phone] Sandra Headley PharmD Unavailable [phone] Encounter Details Date Type Department Care Team (Latest Contact Info) Description 08/29/2021 Abstract [facility] CONVERSIONS Dental, Provider, DDS Social History [...] on filedocumented in this encounter Care Teams Photo Checker And Assembler Relationship Specialty Start Date End Date Name, MD Segundo [address] [place] [address] PCP - General Family Medicine 07/09/15 Sandra Headley, PharmD [address] [place] [address] Pharmacist Internal Medicine 08/19/21 06/17/22 documented as of this encounter
--- OUTSIDE RECORDS SUMMARY | 2024-10-24 15:28 | XMS_ITS | Encounter Summary ---
Author Organization [employer] Address [address] [place] [address] 7t [place] [address] Care Team Providers Care Snack Bar Cashier Name Role Phone Name, Segundo PETE Primary Care Provider [phone] Encounter Details Date Type Department Care Team (Late st Contact Info) Description 06/18/2022 Orders Only [facility] MEDICINE [address] [place] [address] Sanrda Headley, PharmD [address] [place] [address] Social History Tobacco Use Types Packs/Day Years [...] documented as of this encounter Care Teams Snack Bar Cashier Relationship Specialty Start Date End Date Name, MD Segundo [address] [place] [address] PCP - General Family Medicine 07/09/15 documented as of this encounter
--- OUTSIDE RECORDS SUMMARY | 2024-10-24 15:28 | XMS_ITS | Encounter Summary ---
Author Organization [employer] Address [address] [place] [address] 7t [place] [address] Care Team Providers Care Warehouse Analyst Name Role Phone Name, Segundo PETE Primary Care Provider [phone] Sandra Headley PharmD Unavailable [phone] Encounter Details Date Type Department Care Team (Latest Contact Info) Description 04/13/2018 Abstract [facility] CONVERSIONS Dental, Provider, DDS Social History Tobacco [...] on filedocumented in this encounter Care Teams Warehouse Analyst Relationship Specialty Start Date End Date Name, MD Segundo [address] [place] [address] PCP - General Family Medicine 07/09/15 Sandra Headley, PharmD [address] [place] [address] Pharmacist Internal Medicine 08/19/21 06/17/22 documented as of this encounter
--- OUTSIDE RECORDS SUMMARY | 2024-10-24 15:28 | XMS_ITS | Encounter Summary ---
Author Organization [employer] Address [address] [place] [address] [address] [place] [address] Care Team Providers Care Correspondence Transcriber Name Role Phone NameSegundo MD Primary Care Provider [phone] Reason for Visit * Reason Comments Med Refill Encounter Details Date Type Department Care Team (Late st Contact Info) Description 08/07/2022 Refill [facility] [address] [place] [address] NameSegundo MD [address] [place] [address] Social History Tobacco Use Types Packs/Day Years [...] documented as of this encounter Care Teams Correspondence Transcriber Relationship Specialty Start Date End Date NameSegundo MD [address] [place] [address] PCP - General Family Medicine 07/09/15 documented as of this encounter
--- OUTSIDE RECORDS SUMMARY | 2024-10-24 15:28 | XMS_ITS | Clinical Summary ---
Author Organization [employer] Address [address] [place] [address] 7[address] [place] [address] Care Team Providers Care Set Up Machinist Name Role Phone Name, Segundo PETE Primary Care Provider [phone] Allergies Active Allergy Reactions Criticality Noted Date [...] complication, without long-term current use of insulin ([facility]) USE TO TEST BLOOD SUGAR TWICE A [...] [facility] 90 tablet 3 08/29/19 25 Active baclofen [...] complication, without long-term current use of insulin ([facility]) Take 1 tablet (750 mg) by mouth [...] hours during the day. 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 MEDICINE [address] [place] [address] Name, MD Segundo Chronic low back pain, unspecified back pain laterality, unspecified whether sciatica present 09/27/2024 2:30 PM EDT Office Visit [facility] OPTOMETRY [address] [place] [address] Benjamin, Shanell, OD Diabetes type 2, no ocular involvement (CMS/HCC) (Primary Dx); White without pressure of peripheral retina of right eye; Combined forms of age-related cataract of both eyes; Presbyopia 09/27/2024 Travel 09/26/[address] [facility] MEDICINE [address] [place] [address] Segundo Siddiqui MD Chronic migraine with aura without status migrainosus, not intractable 09/24/[address] [facility] MEDICINE [address] [place] [address] Segundo Siddiqui MD 09/21/[address] [facility] MEDICINE [address] [place] [address] Segundo Siddiqui MD Chronic low back pain, unspecified back pain laterality, unspecified whether sciatica present 09/13/[address] [facility] MEDICINE [address] [place] [address] Segundo Siddiqui MD 09/09/[address] [facility] MEDICINE [address] [place] [address] Segundo Siddiqui MD Heartburn 08/28/2024 10:15 AM EDT Office Visit [facility] MEDICINE [address] [place] [address] Segundo Siddiqui MD Routine eye exam (Primary Dx); Type 2 diabetes mellitus without complication, without long-term current use of insulin (CMS/HCC); Primary hypertension; Chronic low back pain, unspecified back pain laterality, unspecified whether sciatica present; Screening mammogram for breast cancer; Psoriasis; Chronic migraine with aura without status migrainosus, not intractable; Seasonal allergies 08/28/2024 Travel 08/24/[address] [facility] MEDICINE [address] [place] [address] Renetta Barraza MA Chart Prep 08/18/2024 Patient Outreach [facility] MEDICINE [address] [place] [address] Segundo Siddiqui MD Care Coordination (CHW outreach [facility] pest control - referral completed ) 08/18/2024 Patient Outreach [facility] MEDICINE [address] [place] [address] Segundo Siddiqui MD Pre-visit Planning (SDOH screening positive and Tobacco screening negative) 08/17/2024 1:00 PM EDT Office Visit [facility] ADULT DENTAL [address] [place] [address] Ban Anthony 08/10/[address] [facility] MEDICINE [address] [place] [address] Segundo Siddiqui MD Chronic low back pain, unspecified back pain laterality, unspecified whether sciatica present 08/04/[address] [facility] MEDICINE [address] [place] [address] Segundo Siddiqui MD fyi from Last 3 Months Immunizations Immunization Administration Dates Next Due Influenza Injectable Quadriv alant Preservative Free IIV4 MDCK 01/06/2022 Influenza injectable quadriv alent IIV4 with preservative 11/25/2016,11/13/2015 Influenza injectable quadriv alent preservative free 02/01/2023,12/03/2020,02/19/2020,01/12 Influenza, IIV3, injectable 12/23/2012 Influenza, seasonal, injecta ble, preservative free 01/12/2024 Novel [id number], preservative-free 04/26/2009 PPD Test 06/23/2010 Pneumococcal Conjugate [...] 1970 Dental X-Ray: Full Mouth 10/20/2017 10/19/2014 Dental Oral Exam 08/15/2024 02/14/2024, , 09/09/2022, Additional history exists Dental Prophylaxis 08/15/2024 02/14/2024, 0 08/10/2023, 09/09/2022, Additional history exists Diabetes: Foot Exam 09/21/2024 09/22/2023, 09/22/2023, 09/22/2023, Additional history exists COVID-19 Vaccine ( season) 2024 05/08/2020 Influenza Vaccine (#1) 2024 , 02/01/2023, 01/06/2022, Additional history exists Diabetes: Hemoglobin A1C 11/28/2024 025, 06/20/2024, 01/12/2024, Additional history exists Dental X-Ray: Bitewings 02/14/2025 02/14/20, 09/09/2022, 12/23/2021, Additional history exists Depression Monitoring 02/28/2025 08/28/2024, 025 Diabetes: Urine Protein Screening 05/15/2025 05/15/2024, 10/28/2021, 10/02/2020 Lipid Panel 05/15/2025 05/15/2024, 04/2 05/2022, 03/03/2022, Additional history exists SDOH Screening 08/18/2025 08/18/2024 Alcohol/Substance Use Screening 08/28/2025 08/28/2024 Disability Screening 08/28/2025 08/28/2024 HIV Screening 08/28/2025 Postponed from 1970 (Patient Refused) Hepatitis B Vaccines (1 of 3 - 19+ 3-dose series) 08/28/2025 Postponed from 1989 (Patient Refused) Hepatitis C Screening 08/28/2025 Postpo caryn from 02/05/1988 (Patient Refused) Tobacco Screening 10/17/2025 10/17/2024 Cervical Cancer Screening 05/28/2026 HPV/Cotest 05/28/2026 05/28/2021 Pap Smear 05/28/2026 05/28/2021 Eye Exam 09/27/2026 09/27/2024, 08/0 07/2024, 09/27/2024, Additional history exists Mammogram 10/18/2026 10/18/2024, 07/23, 09/14/2018 Colonoscopy 11/14/2026 11/14/2021 Colorectal Cancer Screening 11/14/2026 [...] Procedure Name Priority Date/Time Associated Diagnosis Comments BI MAMMOGRAM SCREENING TOMOSYNTHESIS BILATERAL Routine 10/18/2024 1:11 PM EDT Screening mammogram for breast cancer DENTURE ADJUSTMENT Routine 10/17/2024 1: 30 PM EDT XR LUMBAR SPINE 2-3 VIEWS Routine 08/28/2024 10:57 AM EDT Chronic low back pain, unspecified back pain laterality, unspecified whether sciatica present POCT GLYCATED HEMOGLOBIN, TOTAL Routine 08/28/2024 10:26 AM EDT Type 2 diabetes mellitus without complication, without long-term current use of insulin ([facility]) POCT GLUCOSE Routine 08/28/2024 10:26 AM EDT Type 2 diabetes mellitus without complication, without long-term current use of insulin (CMS/HCC) UL PERIODONTAL SCALING AND ROOT PLANING - 1 TO 3 TEETH PER QUADRANT Routine 08/17/2024 1:00 PM EDT LIPID PANEL, STANDARD Routine 05/15/2024 11:35 AM EDT Type 2 diabetes mellitus with other specified complication, without long-term current use of insulin ([facility]) Primary hypertension High cholesterol ALBUMIN, RANDOM URINE W/CREATININE Routine 05/15/2024 11:30 AM EDT Type 2 diabetes mellitus with other specified complication, without long-term current use of insulin ([facility]) Primary hypertension High cholesterol PROPHYLAXIS - ADULT Routine 02/14/2024 1 :00 PM EST BITEWINGS - 4 RADIOGRAPHIC IMAGES Routine 02/14/2024 1:00 PM EST PERIODIC ORAL EVALUATION - ESTABLISHED PATIENT Routine 02/14/2024 1:00 PM EST HM COLONOSCOPY Routine 11/14/2021 10:32 AM EDT HM PAP/HPV Routine 05/28/2021 INTRAORAL - COMPLETE SERIES OF RADIOGRAPHIC IMAGES Routine 10/19/2014 12:00 AM EDT from Last 3 Months or Most Recently Relevant to Health Maintenance Results * BI Mammogram Screening Tomosynthesis Bilateral (10/18/2024 1:11 PM EDT) Anatomical Region Laterality Modality Breast Bilateral Mammography 10/18/2024 1:11 PM EDT Narrative 10/21/2024 2:59 PM EDT [facility] [address] [place] [address] Mammography Report Signed Patient: Jen Mai MR #: [id number] : 1970 Acct:[id number] Age/Sex: 54 / F ADM Date: 10/18/24 Loc: HO.MAMMO Attending Dr: Segundo Siddiqui MD Ordering Physician: Segundo Siddiqui MD Results: 2Benign Fi ndings Date of Service: 10/18/24 Follow Up: 1 Year From Orig inal Mammogram Procedure(s): MM tomosynthesis screening BI Accession Number(s): [id number] cc: Name,Segundo PETE EXAMINATION: MM SCREENING DIGITAL BREAST TOMOSYNTHESIS, BILATERAL CLINICAL INFORMATION: Screening. Asymptomatic. COMPARISON: Comparison made to multiple prior, most recent August 06, 2020, and most remote August 02, 2014. TECHNIQUE: Digital breast tomosynthesis is performed in mediolateral oblique and craniocaudal views along with computer-aided detection (CAD). FINDINGS: BREAST COMPOSITION: The breasts are heterogeneously dense, which may obscure small masses (ACR BI-RADS breast composition Category c). RIGHT BREAST: No significant masses, suspicious calcifications or other abnormalities are seen. LEFT BREAST: Tissue marker from previous needle core biopsy. No significant masses, suspicious calcifications or other abnormalities are seen. MM/MM tomosynthesis screening BI IMPRESSION: BILATERAL BREASTS: Benign, no mammographic evidence of malignancy. Normal interval follow-up is recommended in 12 months. ASSESSMENT: BI-RADS 2 - Benign Findings RECOMMENDATION: Routine annual mammography screening. FOLLOW-UP: 1 year F/U This examination should not preclude the clinical evaluation of a suspicious palpable abnormality. This patient's information was entered into a reminder system with a target due date for their next mammogram. Electronically signed by: Pamela Roy MD 10/21/2024 02:55 PM EDT Dictated By: Pamela Roy MD Signed By: <Electronically signed by Pamela Roy MD in OV> 10/21/24 1455 DD/ 1311 TD/TT: 10/18/24 1334 Box Maker Wood: Procedure Note Donotuseinterpreter, Image - [facility]21/[facility] [address] [place] [address] Mammography Report Signed Patient: Jen Mai LMR #: [id number] : 1970Acct:[id number] Age/Sex: 54 / FADM Date: 10/18/24 Loc: HO.MAMMO Attending Dr: Segundo Siddiqui MD Ordering Physician: Segundo Siddiqui MDResults: 2Benign Fi ndings Date of Service: 10/18/24Follow Up: 1 Year From Orig inal Mammogram Procedure(s): MM tomosynthesis screening BI Accession Number(s): [id number] cc: Segundo Siddiqui MD EXAMINATION: MM SCREENING DIGITAL BREAST TOMOSYNTHESIS, BILATERAL CLINICAL INFORMATION: Screening. Asymptomatic. COMPARISON: Comparison made to multiple prior, most recent August 06, 2020, and most remote August 02, 2014. TECHNIQUE: Digital breast tomosynthesis is performed in mediolateral oblique and craniocaudal views along with computer-aided detection (CAD). FINDINGS: BREAST COMPOSITION: The breasts are heterogeneously dense, which may obscure small masses (ACR BI-RADS breast composition Category c). RIGHT BREAST: No significant masses, suspicious calcifications or other abnormalities are seen. LEFT BREAST: Tissue marker from previous needle core biopsy. No significant masses, suspicious calcifications or other abnormalities are seen. MM/MM tomosynthesis screening BI IMPRESSION: BILATERAL BREASTS: Benign, no mammographic evidence of malignancy. Normal interval follow-up is recommended in 12 months. ASSESSMENT: BI-RADS 2 - Benign Findings RECOMMENDATION: Routine annual mammography screening. FOLLOW-UP: 1 year F/U This examination should not preclude the clinical evaluation of a suspicious palpable abnormality. This patient's information was entered into a reminder system with a target due date for their next mammogram. Electronically signed by: Pamela Roy MD 10/21/2024 02:55 PM EDT Dictated By: Pamela Roy MD Signed By: <Electronically signed by Pamela Roy MD in OV> 10/21/24 8445 DD/ 1311 TD/TT: 10/18/24 1334 Box Maker Wood: Segundo Siddiqui MD IMG BI PROCEDURES Final Result * XR Lumbar Spine 2-3 Views (08/28/2024 10:57 AM EDT) Anatomical Region Laterality Modality Spine, L-spine Radiographic Jaqueline ging 08/28/2024 10:5 7 AM EDT Narrative 08/28/2024 12:35 PM EDT [address] [address] XRay Report Signed Patient: Jen Mai MR #: [id number] : 1970 Acct:[id number] Age/Sex: 54 / F ADM Date: 08/28/24 Loc: HO.HHCX Attending Dr: Segundo Siddiqui MD Ordering Physician: Segundo Siddiqui MD Date of Service: 08/28/24 Procedure(s): XR lumbar spine 2-3V Accession Number(s): [id number] cc: Segundo Siddiqui MD EXAMINATION: XR LUMBOSACRAL [...] 08/28/24 1232 DD/ 1057 TD/TT: 08/28/24 1100 Box Maker Wood: Procedure Note Donotuseinterpreter, Image - 08/28/[address] [address] XRay Report Signed Patient: Jen Mai LMR #: [id number] : 1970Acct:[id number] Age/Sex: 54 / FADM Date: 08/28/24 Loc: HO.HHCX Attending Dr: Segundo Siddiqui MD Ordering Physician: Segundo Siddiqui MD Date of Service: 08/28/24 Procedure(s): XR lumbar spine 2-3V Accession Number(s): [id number] cc: Segundo Siddiqui MD EXAMINATION: XR LUMBOSACRAL [...] 08/28/24 1232 DD/ 1057 TD/TT: 08/28/24 1100 Box Maker Wood: us Segundo Siddiqui MD IMG XR PROCEDURES [...] Media Lot # [id number] Lot# Expiration Date 025 Blood Capillary blood specimen / Unknown 08/28/2024 10:26 AM EDT us Segundo Siddiqui MD POINT OF CARE TEST ENTER/EDIT OR DERABLES Final Result * (ABNORMAL) Lipid Panel, Standard (05/15/2024 11:35 AM EDT) Triglycerides 89 <150 mg/dL [facility] Comment:Desirable Triglyceri de: less than 150 mg/dLBorderline High Triglyceride 150-199 mg/dLHigh Triglyceride: 200-499 mg/dLVery High Triglyceride: greater than or equal to 5OO mg/dL Cholesterol 184 <200 mg/dL [facility] Comment:Desirable Cholestero l: less than 200 mg/dLBorderline High Cholesterol: 200-239 mg/dLHigh Cholesterol: greater than 239 mg/dL LDL Cholesterol Calculated 120(H) <100 mg/dL [facility] Comment:Desirable LDL: less than 100 mg/dLNear Optimal/Above Optimal LDL: 110- 129 mg/dLBorderline High LDL: 130-159 mg/dLHigh LDL: 160-189 mg/dLVery High LDL: greater than or equal to 190 mg/dL HDL Cholesterol 47 >40 mg/dL [facility] Comment:Desirable HDL: great er than 40 mg/dL Note: This HDL assay may give artificially low results in patients with liver disease. Blood Venous blood specimen / Unknown 05/15/2024 11:35 AM EDT 05/15/2024 1:44 PM EDT us Segundo Siddiqui MD LAB BLOOD ORDERABLES Final Resul t [facility] [address] [place] [phone] * Albumin, Random Urine W/Creatinine (05/15/2024 11:30 AM EDT) Creatinine, Urine 171.56 mg/dL [facility] Microalbumin Urine 48.0 mg/L [facility] Microalbum Creatinine Ratio Ur 27.9 <30 ug/mg cr [facility] Comment:Albumin/Creatinine R atio Reference Ranges: Normal: < 30 ug/mg creatinine Microalbuminuria: 30 - 300 ug/mg creatinineClinical Albuminuria: > 300 ug/mg creatinine Urine (Urine, Random) 05/15/2024 11:30 AM EDT 05/15/2024 1:09 PM EDT Segundo Siddiqui MD LAB URINE ORDERABLES Final Resul t [facility] [address] [place], [place] [phone] * Colonoscopy (11/14/2021 10:32 AM EDT) Colonoscopy Normal Normal Narrative Surekha Lo - 11/14/2021 10:32 AM EDT Recommended 5 year follow up Historical Provider HEALTH MAINTENANCE Final Result * Pap Smear (05/28/2021) Pap Negative for intraephithelial lesion or malignancy Negative for intraephithelial lesion or malignancy, Other HPV Undetected 05/28/2021 Historical Provider HEALTH MAINTENANCE Final Result from Last 3 Months or Most Recently Relevant to Health Maintenance Insurance [facility] STAND [facility] PPO Care Teams Set Up Machinist Relationship Specialty Start Date End Date Name, MD Segundo [address] [place] [address] PCP - General Family Medicine 07/09/15
--- OUTSIDE RECORDS SUMMARY | 2024-10-24 15:28 | XMS_ITS | Encounter Summary ---
Author Organization [employer] Address [address] [place] [address] [address] [place] [address] Care Team Providers Care Endocrinologist Name Role Phone Name, Segundo PETE Primary Care Provider [phone] Reason for Visit * Reason Comments Med Refill Encounter Details Date Type Department Care Team (Late st Contact Info) Description 03/04/2023 Refill [facility] MEDICINE [address] [place] [address] Natalie Love FNP [address] [place] [address] Migraine without status migrainosus, not intractable, unspecified [...] documented as of this encounter Care Teams Endocrinologist Relationship Specialty Start Date End Date Name, MD Segundo [address] [place] [address] PCP - General Family Medicine 07/09/15 documented as of this encounter
--- OUTSIDE RECORDS SUMMARY | 2024-10-24 15:28 | XMS_ITS | Encounter Summary ---
Author Organization [employer] Address [address] [place] [address] [address] [place] [address] Care Team Providers Care Assistant Sales Director Name Role Phone NameSegundo MD Primary Care Provider [phone] Reason for Visit * Reason Comments Med Refill Encounter Details Date Type Department Care Team (Late st Contact Info) Description 05/07/2024 Refill [facility] MEDICINE [address] [place] [address] Name, MD Segundo [address] [place] [address] Social History Tobacco Use Types Packs/Day Years [...] documented as of this encounter Care Teams Assistant Sales Director Relationship Specialty Start Date End Date Name, MD Segundo [address] [place] [address] PCP - General Family Medicine 07/09/15 documented as of this encounter
--- OUTSIDE RECORDS SUMMARY | 2024-10-24 15:28 | XMS_ITS | Encounter Summary ---
Author Organization [email or web address] Address [address] [place] [address] [address] [place] [address] Care Team Providers Care Customer Support Specialist Name Role Phone Name, Segundo PETE Primary Care Provider [phone] Reason for Visit * Reason Comments Med Refill Encounter Details Date Type Department Care Team (Late st Contact Info) Description 05/19/2023 Refill [facility] MED[facility]INE [address] [place] [address] Name, MD Segundo [address] [place] [address] Chronic low back pain, unspecified back pain [...] T/C to pt for status check via [facility] #[id number]. No answer, v/m left to return call to [place] team nurses. documented in this encounter Plan of Treatment Not on file documented as of this encounter Visit Diagnoses Diagnosis Chronic low back pain, unspecified back pain laterality, unspecified whether sciatica present documented in this encounter Additional Health Concerns Assessment Noted Time PHQ-9 Depression Total Score: 5 03/05/19 23 11:06 AM EST documented as of this encounter Care Teams Customer Support Specialist Relationship Specialty Start Date End Date Name, MD Segundo [address] [place] [address] PCP - General Family Medicine 07/09/15 documented as of this encounter
--- OUTSIDE RECORDS SUMMARY | 2024-10-24 15:28 | XMS_ITS | Clinical Summary ---
Author Organization [facility] Address [address] [place] [address] Care Team Providers Care Negative Assembler Name Role Phone Unavailable Primary Care Provider [...] Vaccines (1 of 2) 02/05/2020 010, 09/25/2009 Depression Screening 02/23/2024 COVID-19 Vaccine (2023-2 5 season) 2024 Influenza Vaccine (#1) 2024 3, 04/26/2009 Varicella [...]
--- OUTSIDE RECORDS SUMMARY | 2024-10-24 15:28 | XMS_ITS | Encounter Summary ---
Author Organization [employer] Address [address] [place] [address] [address] [place] [address] Care Team Providers Care Hot Stamp Operator Name Role Phone NameSegundo MD Primary Care Provider [phone] Reason for Visit * Reason Comments Med Refill Encounter Details Date Type Department Care Team ([facility] st Contact Info) Description 01/07/2023 Refill [facility] MEDICINE [address] [place] [address] Name, MD Segundo [address] [place] [address] Social History Tobacco Use Types Packs/Day Years [...] documented as of this encounter Care Teams Hot Stamp Operator Relationship Specialty Start Date End Date Name, MD Segundo [address] [place] [address] PCP - General Family Medicine 07/09/15 documented as of this encounter
--- OUTSIDE RECORDS SUMMARY | 2024-10-24 15:28 | XMS_ITS | Encounter Summary ---
Author Organization [employer] Address [address] [place] [address] 7t [place] [address] Care Team Providers Care Salesperson Automobiles Name Role Phone Name, Segundo PETE Primary Care Provider [phone] Reason for Visit * Reason Comments Med Refill Encounter Details Date Type Department Care Team ([facility] st Contact Info) Description 12/14/2022 Refill [facility] MEDICINE [address] [place] [address] Rajwinder Stevens, WAREHOUSE TEAM LEADER [address] [place] [address] Chronic pain syndrome Social History Tobacco Use [...] documented as of this encounter Care Teams Salesperson Automobiles Relationship Specialty Start Date End Date Name, MD Segundo [address] [place] [address] PCP - General Family Medicine 07/09/15 documented as of this encounter
--- OUTSIDE RECORDS SUMMARY | 2024-10-24 15:28 | XMS_ITS | Encounter Summary ---
Author Organization [employer] Address [address] [place] [address] 7[address] [place] [address] Care Team Providers Care Rewinder Name Role Phone Name, Segundo PETE Primary Care Provider [phone] Reason for Visit * Reason Onset Date Comments Med Refill 03/08/2024 Encounter Details Date Type Department Care Team (Late st Contact Info) Description 03/08/2024 Telephone [facility] MEDICINE [address] [place] [address] Name, MD Segundo [address] [place] [address] Med Refill Social History Tobacco Use Types [...] 1:56 PM EST Script was sent to [facility] #[id number] on 01/06/24 with 11 refills. * Telephone Encounter - Nora Basurto - 03/08/2024 12:39 PM EST TC from pt requesting medication refill. Medications needing refill : OneTouch Verio test strip To be sent to: [facility]/pharmacy #[id number] - [place] [address] documented in this encounter Plan of Treatment Not on file documented as of this encounter Visit Diagnoses Not on filedocumented in this encounter Additional Health Concerns Assessment Noted Time PHQ-9 Depression Total Score: 0 07/31/20 24 3:22 PM EDT documented as of this encounter Care Teams Rewinder Relationship Specialty Start Date End Date Name, MD Segundo [address] [place] [address] PCP - General Family Medicine 07/09/15 documented as of this encounter
--- OUTSIDE RECORDS SUMMARY | 2024-10-24 15:28 | XMS_ITS | Encounter Summary ---
Author Organization [employer] Address [address] [place] [address] [address] [place] [address] Care Team Providers Care Sap Bods Developer Name Role Phone NameSegundo MD Primary Care Provider [phone] Reason for Visit * Reason Comments Med Change Request Encounter Details Date Type Department Care Team ([facility] st Contact Info) Description 09/21/2024 Refill [facility] MEDICINE [address] [place] [address] Name, MD Segundo [address] [place] [address] Chronic low back pain, unspecified back pain [...] documented as of this encounter Care Teams Sap Bods Developer Relationship Specialty Start Date End Date Name, MD Segundo [address] [place] [address] PCP - General Family Medicine 07/09/15 documented as of this encounter
--- OUTSIDE RECORDS SUMMARY | 2024-10-24 15:28 | XMS_ITS | Encounter Summary ---
Author Organization [employer] Address [address] [place] [address] [address] [place] [address] Care Team Providers Care Branch Employment Coordinator Name Role Phone Name, Segundo PETE Primary Care Provider [phone] Reason for Visit * Reason Onset Date Comments Appointment Request 01/07/2023 Encounter Details Date Type Department Care Team ([facility] st Contact Info) Description 01/07/2023 Telephone [facility] MEDICINE [address] [place] [address] Name, MD Segundo [address] [place] [address] Appointment Request Social History Tobacco Use Types [...] stating that See her every 3 months. Plant Production Manager don't nothing on last visit neither recall list. PCP Name documented in this encounter Plan of Treatment Not on file documented as of this encounter Visit Diagnoses Not on filedocumented in this encounter Additional Health Concerns Assessment Noted Time PHQ-9 Depression Total Score: 5 03/05/19 23 11:06 AM EST documented as of this encounter Care Teams Branch Employment Coordinator Relationship Specialty Start Date End Date Name, MD Segundo [address] [place] [address] PCP - General Family Medicine 07/09/15 documented as of this encounter
--- OUTSIDE RECORDS SUMMARY | 2024-10-24 15:28 | XMS_ITS | Encounter Summary ---
Author Organization [employer] Address [address] [place] [address] [address] [place] [address] Care Team Providers Care Etcher Apprentice Name Role Phone NameSegundo MD Primary Care Provider [phone] Reason for Visit * Reason Comments Med Refill Encounter Details Date Type Department Care Team (Late st Contact Info) Description 10/22/2022 Refill [facility] MEDICINE [address] [place] [address] Name, MD Segundo [address] [place] [address] Exacerbation of chronic back pain; Radicular syndrome [...] documented as of this encounter Care Teams Etcher Apprentice Relationship Specialty Start Date End Date Name, MD Segundo [address] [place] [address] PCP - General Family Medicine 07/09/15 documented as of this encounter
--- OUTSIDE RECORDS SUMMARY | 2024-10-24 15:28 | XMS_ITS | Encounter Summary ---
Author Organization [employer] Address [address] [place] [address] [address] [place] [address] Care Team Providers Care Spotter Name Role Phone Name, Segundo PETE Primary Care Provider [phone] Sandra Headley PharmD Unavailable [phone] Reason for Visit * Reason Comments Med Refill Encounter Details Date Type Department Care Team (Late st Contact Info) Description 03/16/2022 Refill [facility] MEDICINE [address] [place], [place] [phone] Name, MD Segundo [address] [place], [place] [phone] Exacerbation of chronic back pain; Radicular syndrome [...] documented as of this encounter Care Teams Spotter Relationship Specialty Start Date End Date Name, MD Segundo [address] [place] [address] PCP - General Family Medicine 07/09/15 Sandra Headley, VirgenD [address] [place] [address] Pharmacist Internal Medicine 08/19/21 06/17/22 documented as of this encounter
--- OUTSIDE RECORDS SUMMARY | 2024-10-24 15:28 | XMS_ITS | Encounter Summary ---
Author Organization [employer] Address [address] [place] [address] [address] [place] [address] Care Team Providers Care Press And Blow Machine Tender Name Role Phone Name, Segundo PETE Primary Care Provider [phone] Reason for Visit * Reason Comments Med Refill Encounter Details Date Type Department Care Team (Late st Contact Info) Description 08/30/2022 Refill [facility] MEDICINE [address] [place] [address] Name, MD Segundo [address] [place] [address] High cholesterol; Exacerbation of chronic back pain; [...] documented as of this encounter Care Teams Press And Blow Machine Tender Relationship Specialty Start Date End Date Name, MD Segundo [address] [place] [address] PCP - General Family Medicine 07/09/15 documented as of this encounter
--- OUTSIDE RECORDS SUMMARY | 2024-10-24 15:28 | XMS_ITS | Encounter Summary ---
Author Organization [employer] Address [address] [place] [address] [address] [place] [address] Care Team Providers Care Manager Culture Name Role Phone Name, Segundo PETE Primary Care Provider [phone] Reason for Visit * Reason Comments Med Refill Encounter Details Date Type Department Care Team (Late st Contact Info) Description 08/30/2022 Refill [facility] MEDICINE [address] [place], [place] [phone] Rajwinder Stevens, REVIEW COORDINATOR [address] [place], [place] [phone] Heartburn Social History Tobacco Use Types Packs/Day [...] documented as of this encounter Care Teams Manager Culture Relationship Specialty Start Date End Date Name, MD Segundo [address] [place] [address] PCP - General Family Medicine 07/09/15 documented as of this encounter
[2024-11-01 13:54] VITALS: BMI 26.0
--- NOTE | 2024-11-01 14:24 | HO.ANESPROP2 ---
Documented by User: Carolina Burkett NP 11/01/24 14:24 HPI - Anesthesia Eval Consult details Narrative: 54 yr old female for Therapeutic Sacroiliac Joint Steroid Injection PMFSH Active Problems Active Problems: All Active Problems (Updated 11/01/24 @ 13:48 by Sury Salguero RN) Sacroiliac joint dysfunction of right side (Acute) Left hip pain (Acute) Arthritis of elbow, left (Acute) Left elbow pain (Acute) Arthritis of right hip (Acute) Endometrioma of ovary (Acute) Complex ovarian cyst (Acute) Dysmenorrhea (Acute) Pelvic pain in female (Acute) Fibroids (Acute) Encounter to discuss test results (Acute) Migraine with aura (Acute) Chronic pain syndrome (Acute) Sacroiliitis (Acute) Low back pain (Acute) Spondylosis of lumbosacral spine without myelopathy (Acute) Past Medical History Medical History Arthritis Diverticulosis Diabetes GERD (gastroesophageal reflux disease) Asthma Anxiety Vertigo Migraine with aura Endometrioma of ovary Chronic pain syndrome Sacroiliitis Low back pain Spondylosis of lumbosacral spine without myelopathy Family History Family History Maternal Aunt Breast cancer Family history of problems with anesthesia: No Surgical History Surgical History Hx of colonoscopy S/P placement of nerve stimulator History of esophagogastroduodenoscopy (EGD) Hx of tubal ligation Hx of section History of Problems with Anesthesia: No Social History Social History Household Members: Significant Other and Family Are you a primary occasional caregiver to a significant other at home: No Do you presently have visiting nurse or other home services: No Alcohol intake: never Patient Tobacco Use Status: Former Tobacco user Tobacco use type: Cigarette Use of substances other than those prescribed or required for medical reasons: No Have you been hit, kicked, punched, or otherwise hurt by someone within the past year? If so, by whom?: No Are you DNR?: No Advance Directives: No Advance Directives Information Provided: Yes Patient : No : No Poor oral hygiene: Yes Meds Allergies Allergy/AdvReac Type Severity Reaction Status Date / Time pollen extracts Allergy Nasal Verified 09/14/24 11:52 congestion Home Medications ?Medication ?Instructions ?Recorded ?Confirmed ?Last Taken ?Type meclizine 25 mg tablet 25 mg PO TID PRN Vertigo 04/15/20 06/15/22 Unknown History tramadol 50 mg tablet 50 mg PO Q12H PRN Pain 04/15/20 06/15/22 Unknown History albuterol sulfate 90 mcg/actuation 2 puff inhalation Q4H PRN 07/29/20 11/01/24 Unknown History aerosol inhaler Bronchodilation fluticasone propionate 110 1 PO BID 07/29/20 06/15/22 Unknown History mcg/actuation HFA aerosol inhaler (Flovent HFA) blood sugar diagnostic (OneTouch #10 ea 01/22/21 06/15/22 Unknown History Ultra Test strips) ferrous sulfate 325 mg (65 mg 325 mg PO DAILY 01/22/21 06/15/22 Unknown History iron) tablet hydroxyzine HCl 25 mg tablet 25 mg PO DAILY 02/25/21 06/15/22 Unknown History naproxen 500 mg tablet 500 mg PO BID 06/30/21 06/15/22 Unknown History atorvastatin 20 mg tablet 20 mg PO DAILY 11/01/24 11/01/24 Unknown History cetirizine 10 mg tablet 10 mg PO DAILY 11/01/24 11/01/24 Unknown History losartan 25 mg tablet 25 mg PO QAM 11/01/24 11/01/24 Unknown History metformin 750 mg tablet,extended 750 mg PO QPM 11/01/24 11/01/24 Unknown History release 24 hr Exam Height,Weight and Vital Signs: Height 5 ft 2 in Weight 64.41 kg Assessment and Plan Final Anesthetic Review Family History of Problems with Anesthesia: No History of Problems with Anesthesia: No Documented by User: Rafael Antoine MD 11/03/24 11:26 [facility] Past Medical History Medical History Arthritis Diverticulosis Diabetes GERD (gastroesophageal reflux disease) Asthma Anxiety Vertigo Migraine with aura Endometrioma of ovary Chronic pain syndrome Sacroiliitis Low back pain Spondylosis of lumbosacral spine without myelopathy Functional capacity: independent ambulation Family History Family History Maternal Aunt Breast cancer Surgical History Surgical History Hx of colonoscopy S/P placement of nerve stimulator History of esophagogastroduodenoscopy (EGD) Hx of tubal ligation Hx of section Social History Social History Household Members: Significant Other and Family Are you a primary occasional caregiver to a significant other at home: No Do you presently have visiting nurse or other home services: No Alcohol intake: never Patient Tobacco Use Status: Former Tobacco user Tobacco use type: Cigarette Use of substances other than those prescribed or required for medical reasons: No Have you been hit, kicked, punched, or otherwise hurt by someone within the past year? If so, by whom?: No Are you DNR?: No Advance Directives: No Advance Directives Information Provided: Yes Patient : No : No Poor oral hygiene: Yes Meds Allergies Allergy/AdvReac Type Severity Reaction Status Date / Time pollen extracts Allergy Nasal Verified 09/14/24 11:52 congestion Home Medications ?Medication ?Instructions ?Recorded ?Confirmed ?Last Taken ?Type meclizine 25 mg tablet 25 mg PO TID PRN Vertigo 04/15/20 06/15/22 Unknown History tramadol 50 mg tablet 50 mg PO Q12H PRN Pain 04/15/20 06/15/22 Unknown History albuterol sulfate 90 mcg/actuation 2 puff inhalation Q4H PRN 07/29/20 11/01/24 Unknown History aerosol inhaler Bronchodilation fluticasone propionate 110 1 PO BID 07/29/20 06/15/22 Unknown History mcg/actuation HFA aerosol inhaler (Flovent HFA) blood sugar diagnostic ([employer] #10 ea 01/22/21 06/15/22 Unknown History Ultra Test strips) ferrous sulfate 325 mg (65 mg 325 mg PO DAILY 01/22/21 06/15/22 Unknown History iron) tablet hydroxyzine HCl 25 mg tablet 25 mg PO DAILY 02/25/21 06/15/22 Unknown History naproxen 500 mg tablet 500 mg PO BID 06/30/21 06/15/22 Unknown History atorvastatin 20 mg tablet 20 mg PO DAILY 11/01/24 11/01/24 Unknown History cetirizine 10 mg tablet 10 mg PO DAILY 11/01/24 11/01/24 Unknown History losartan 25 mg tablet 25 mg PO QAM 11/01/24 11/01/24 Unknown History metformin 750 mg tablet,extended 750 mg PO QPM 11/01/24 11/01/24 Unknown History release 24 hr Exam Exam Date and Time: 11/03/24 Airway Mallampati Class: II TM Dist: >3cm Neck ROM: Full Loose/Missing/Broken Teeth: No Heart: rrr Lungs: cta Other: normal Assessment and Plan Assessment Anesthesia Assessment: Anesthesia Plan Discussed and Chart Reviewed Final Anesthetic Review NPO: Yes ASA Class: II Final Preanesthetic Review: No Changes in Pt Med Stat, Meds/Allgs Chart Reviewed, Consent Obtained/Reviewed and Anes Risks/Benef Reviewed Patient Risk: Low Procedure Risk: Low Anesthetic Plan Anesthetic Plan: MAC: Disposition: Standard PACU
[2024-11-03] VITALS (7 sets, daily range): BP systolic 108–134; BP diastolic 46–78; PULSE 70–79; RESP 12–18; TEMP 36.3–36.6; O2SAT 98–100; BMI 26.6
--- NOTE | ~2024-11-03 | FL_ITS ---
EXAMINATION: FL GUIDANCE ONLY HISTORY: Therapeutic Sacroiliac Joint Steroid Injection COMPARISON: None available. TECHNIQUE: Fluoroscopy time: 8.7 seconds. Cumulative Dose: 1.8652 mGy. DAP: 0.4958 mGym2 Images: 4. FINDINGS: Fluoroscopic spot films of the right hemipelvis demonstrate a needle and contrast material in the region of the sacroiliac joint. FL/FL guidance in OR IMPRESSION: Fluoroscopy during procedure. Please see procedure report for additional information. Electronically signed by: Kaleb Cuellar MD 11/03/2024 12:05 PM EDT
[2024-11-03] MEDS: Lactated Ringers 1,000 ML 100 ML IVCONT (10:50)
[2024-11-03 11:08] LABS: Glucose, Whole Blood 174 mg/dL (60-115)
--- NOTE | 2024-11-03 11:17 | MHC.SHP ---
Pre-Procedural Eval Section A - 24 Hr Update-Section A only Date of Service: 11/03/24 Section B - Complete if H&P > 30 days Chief Complaint: Sacrococcygeal disorders,sacroiliitis Details of Present Illness: as above Relevant Family History (Specify if Yes): No Relevant Social History: None Present Medications: see Short Stay Collaborative assessment Medical History: No relevant PMH History of Previous Operations: No relevant previous surgery Allergies: Allergies Allergy/AdvReac Type Severity Reaction Status Date / Time pollen extracts Allergy Nasal Verified 09/14/24 11:52 congestion Review of Systems Sugical H&P ROS: Negative: Cardiovascular, Respiratory, Neurological, Psychiatric, Hem-Onc, Allergic/Immunologic, Gastrointestinal, Genitourinary, Musculoskeletal, Integumentary, Endocrine and Eyes/Ears/Nose/Throat and Yes, Specify: Constitution Exam Surgical H&P Exam: Normal: HEENT, Normal: Heart, Normal: Lungs, Normal: Extremities, Normal: Abdomen, Normal: Skin and Normal: Neurological Plan Diagnosis/Plan: Unchanged I have reviewed the history and physical and performed a pertinent physical examination on my patient. No changes have occurred unless specified. Time Spent With Patient Time: Total time managing care of this patient today ____ minutes.
--- NOTE | 2024-11-03 11:51 | PM.OP ---
Brief Operative Note Date of Service: 12/11/21 Pre-op diagnosis: sacroiliitis Post-op diagnosis: same Procedure: Sacroiliac joint innervation diagnostic injection left Implants: none Surgeon: Arben Hanson MD Anesthesia: MAC Was an Pantograph Machine Set Up Operator used for this Procedure?: No Estimated blood loss (mL): 0 Pathology: none sent Condition: stable Disposition: PACU
--- NOTE | 2024-11-03 11:52 | W.PM.OPN ---
Operative Note Operative Note Date of Service: 11/03/24 Narrative: Right therapeutic Sacroiliac joint injection. Informed consent was explained thoroughly to the patient.? All questions about benefits and risks for the procedure were answered. Patient came to the operating room and was positioned prone on the operating table with the pillow under the abdomen.? ASA monitors were applied and patient was moderately sedated. The lower back and buttocks of the patient were prepped with ChloraPrep prepped and draped with sterile utility towels.? Sterilely draped C-arm was brought over the operating field and sq picture of patient's pelvis was demonstrated on the screen.? For the right joint tilting C-arm contralateral to the site of the joint the most posterior portion of the joints was superimposed with anterior silhouette of the joint.? The patient's skin was injected in the projection of the joint slightly medial to the location of the joint with 25 gauge 1/2 inch needle using local lidocaine 2% mixed with ropivacaine 0.5% one to one. After that 22 gauge 3 and 1/2 inch needle was driven to the right SI joint in tunnel vision fashion.? When needle entered the joint capsule injection of the contrast was performed demonstrating intra-articular and minimally periarticular spread of the contrast.? After that 5 cc. of ropivacaine 0.5% mixed with Kenalog 40 mg was injected into each joint. (the patient is diabetic and does not have blood sugar machine at home.)? Total dose of Kenalog was 80 mg. Upon completion of the injections the needles were removed, Band-Aids were applied.? Upon completion of the injection patient was taken outside of the operating room to the recovery room where recovered uneventfully.
== END 2024-11-03 12:56 | disposition home or self-care (01) ==
PROVIDERS: PCP Internal Medicine Geriatric Medicine; Visit Provider Anesthesiology
PROC: 3E0U33Z Introduction of Anti-inflammatory into Joints, Percutaneous Approach (ICD-10-PCS; CPT 27096; principal; 2024-11-03 12:00)
DX: M46.1 Sacroiliitis, not elsewhere classified (principal); M53.3 Sacrococcygeal disorders, not elsewhere classified; M54.50 Low back pain, unspecified; M47.817 Spondylosis without myelopathy or radiculopathy, lumbosacral region; M16.11 Unilateral primary osteoarthritis, right hip; G43.109 Migraine with aura, not intractable, without status migrainosus; M25.552 Pain in left hip; K57.30 Diverticulosis of large intestine without perforation or abscess without bleeding; E11.9 Type 2 diabetes mellitus without complications; J45.909 Unspecified asthma, uncomplicated; Z79.51 Long term (current) use of inhaled steroids; Z79.1 Long term (current) use of non-steroidal anti-inflammatories (NSAID); Z79.84 Long term (current) use of oral hypoglycemic drugs; Z79.899 Other long term (current) drug therapy; Z98.890 Other specified postprocedural states; Z87.891 Personal history of nicotine dependence
CPT/HCPCS: G0260; 82947; J1171; J2003; J2250; J2704; J2795; J3010; J3301; Q9967

== ENCOUNTER → 2024-11-03 10:15 | Outpatient (BNV) | payer MEDICARE, MEDICAID, SELFPAY | PROVIDERS: PCP Internal Medicine Geriatric Medicine; Visit Provider Anesthesiology | DX: M46.1 Sacroiliitis, not elsewhere classified (principal) | CPT/HCPCS: 27096 ==

== ENCOUNTER 2024-12-07 11:26 | Outpatient (AMB) | payer MEDICARE, MEDICAID, SELFPAY ==
--- NOTE | 2024-12-07 11:30 | MHC.OFFVIS ---
Vital Signs 12/07/24 11:31 Height 5 ft 2 in Weight 147 lb BMI 26.9 BP 165/77 H Blood Pressure Location Lt brachial Position Sitting Respiration 16 Pulse 71 Pulse Source Pulse Oximeter Pulse Oximetry (%) 99 Oxygen Delivery Method Room Air Intake Visit Reasons: S/p (R) Thera SI Injection 11/03/24 Turbine Inspector Required: Yes Turbine Inspector Name: Paramjit [id number] Accompanied by: Life Partner Allergies pollen extracts Allergy (Verified 12/07/24 11:33) Nasal congestion HPI Comments Details: Jen is back in my office after therapeutic bilateral sacroiliac joint injection. She received this procedure 1 month ago. She reported excellent pain relief now. She reports excellent mobility good activities of daily living excellent social interaction. The patient is very satisfied with injection. Explained to the patient that I would like to see how long the pain relief will last. I will see this patient in 2 months. If her pain relief at this time is still lasting we could consider performing yet another bilateral sacroiliac joint injection. However if pain is coming back SI joint fusion versus SI joint innervation stimulation could be discussed. Prior: She reports continued pain in the lower back. The x-ray of the lumbar spine remarkably no unimpressive. On physical exam there are still signs of sacroiliac joint problems on the right. In the past she received diagnostic sacroiliac joint innervation injection which gave her pain relief for 3 months. I offered her today to go for aquatic sacroiliac joint injection, she insists on having this procedure under general anesthesia. I will schedule her accordingly. As of her left hip pain her x-ray of the left hip is almost completely normal. I will send her for physical therapy for the left hip pain. Prior: returned to my office after more than 1 year of absence. She continues to complain on pain in the right hip joint however last time 1 year ago x-ray of the right hip joint demonstrated only cam deformity and not much of the hip arthritis. There were also not much of the changes in projection of the trochanteric bursa. And yet patient is convinced that she has pain she experiences coming from the hip joint. History of the sacroiliac joint problem is described as below. I sent her on her insistence to the another right hip x-ray and we are still waiting for official report. I examined that x-ray myself and did not find any major changes which would be evident of arthritis. She also reported today pain in the projection of the mid axillary line ?where my bra strap is. ?Most likely this is muscular spasm. I decided to send her for physical therapy and started her on baclofen. She adamantly refused to go for physical therapy but she agreed to start baclofen. The prescription of the baclofen see as below. We agreed that I will see her in 3 weeks probably by then the x-ray reading will be ready. Prior: SIJ innervation diagnostic injection was performed for her in the past twice.?? in the past she was a subject of trial of the peripheral nerve stimulation stim wave and got good results however refused to go for implantation and instead requested to perform diagnostic injection again.? ? She had the trial of sacroiliac joint innervation peripheral nerve stimulation stim wave.? She reported pain relieve from 9/10 to 2/10 while being stimulated however she is not very eager to have implant of the device.? She was asking me about other options.? I explained to her about radiofrequency ablation of the sacroiliac joint innervation as well as potential sacroiliac joint fusion. She had SI joint innervation injection with very good results of 100% pain relief for for 6 hours and following several days of 80% pain relieve. Prior:? History of? lower back pain.? She has a 30 year history of lower back pain, without any inciting events. She denies surgical spinal procedures She describes a pressure in her lower back with stinging and burning radiation down lateral right leg, extending to lateral ankle. She was treated previously for this at [facility] with PT and what sounds to be ESIs. She states PT did not help, and injections only helped for about a month each, with side effect of hyperglycemia.? She is very brittle diabetic. She was sent for an MRI by Ms. Eli.? The report of the MRI is as below.? She had PT without success and she is taking gabapentin without significant pain relief. The possibility to treat this patient with different approaches as above was discussed again today [facility] Medical History Arthritis Diverticulosis Diabetes GERD (gastroesophageal reflux disease) Asthma Anxiety Vertigo Migraine with aura Endometrioma of ovary Chronic pain syndrome Sacroiliitis Low back pain Spondylosis of lumbosacral spine without myelopathy Surgical History Hx of colonoscopy S/P placement of nerve stimulator History of esophagogastroduodenoscopy (EGD) Hx of tubal ligation Hx of section Family History Maternal Aunt Breast cancer Social History Household Members: Significant Other and Family Are you a primary youth care specialist to a significant other at home: No Do you presently have visiting nurse or other home services: No Alcohol intake: never Patient Tobacco Use Status: Former Tobacco user Tobacco use type: Cigarette Female Reproductive History Menstrual Age of Menarche: 12 Review of Systems Const All systems reviewed & are unremarkable except as noted in HPI and below Neuro Denies Sensory deficit (Neuro) Physical Exam Vital Signs: Last Vital Signs Pulse 71 12/07/24 11:31 Resp 16 12/07/24 11:31 BP 165/77 H 12/07/24 11:31 Pulse Ox 99 12/07/24 11:31 Oxygen Delivery Method Room Air 12/07/24 11:31 BMI result Body Mass Index 26.9 Const General: cooperative, healthy appearing, comfortable and no acute distress Eyes EOM: EOMs intact bilaterally Chest Chest palpation & inspection: normal inspection of the chest Resp Effort & Inspection: normal respiratory effort, able to speak in complete sentences, normal respiratory pattern, no audible wheezes and no cough Cardio Jugular venous distension: no JVD Back/Spine/Pelvis Other: tenderness on palpation in paraspinal spinal region in lumbar spine. S special tenderness noted in the projection of the right sacroiliac joint. Ari test is positive. Pelvic compression test is positive. Gaenslen test is positive on the right Rebel finger test is positive. Loading test is positive. Range of motion in lumbar spine is preserved. . Neuro Sensory Exam: No Sensory deficit (Neuro) Extrem Other: Lateral rotation of the left hip causes severe discomfort in the groin. Psych Attitude: cooperative Assessment & Plan Assessment & Plan (1) Arthritis of right hip: Code(s): M16.11 - Unilateral primary osteoarthritis, right hip Category: Medical (2) Left hip pain: Code(s): M25.552 - Pain in left hip Category: Medical (3) Sacroiliitis: Code(s): M46.1 - Sacroiliitis, not elsewhere classified Category: Medical (4) Sacroiliac joint dysfunction of right side: Code(s): M53.3 - Sacrococcygeal disorders, not elsewhere classified Category: Medical Plan Diagnostic sacroiliac joint injections in the past as well as sacroiliac joint innervation injection in the past demonstrated that the pain of the patient is coming from sacroiliitis. Excellent results of therapeutic sacroiliac joint injection 100% pain relief for the past month. I will see this patient in 2 months and we will decide on further mode of action. If she will continue not to experience pain at this time I will see if we can repeated when the pain will come back. However if her pain will return sooner than 3 months we would need to consider sacroiliac joint fusion versus sacroiliac joint innervation stimulation. Coding Level of Care Code Est Pt Level 3 (76058) Diagnoses Arthritis of right hip M16.11 Left hip pain M25.552 Sacroiliitis M46.1 Sacroiliac joint dysfunction of right side M53.3
[2024-12-07 11:31] VITALS: BP 165/77; PULSE 71; RESP 16; O2SAT 99; BMI 26.9
--- OUTSIDE RECORDS SUMMARY | 2024-12-07 14:44 | XMS_ITS | Encounter Summary ---
Author Organization [employer] Address [address] [place] [address] 7 [place] [address] Care Team Providers Care Logistics Engineering Manager Name Role Phone NameSegundo MD Primary Care Provider [phone] Reason for Visit * Reason Comments Med Refill Encounter Details Date Type Department Care Team (Late st Contact Info) Description 08/07/2022 Refill [facility] [address] [place] [address] Segundo Siddiqui MD [address] [place], [place] [phone] Social History Tobacco Use Types Packs/Day Years [...] Care Team (Late st Contact Info) Description 02/01/2025 11:15 AM EST Office Visit [facility] MEDICINE [address] [place], [place] [phone] Segundo Siddiqui MD [address] [place], [place] [phone] documented as of this encounter Visit Diagnoses Not on filedocumented in this encounter Additional Health Concerns Assessment Noted Time PHQ-9 Depression Total Score: 5 03/05/19 23 11:06 AM EST documented as of this encounter Care Teams Logistics Engineering Manager Relationship Specialty Start Date End Date Name, MD Segundo [address] [place] [address] PCP - General Family Medicine 07/09/15 documented as of this encounter
--- OUTSIDE RECORDS SUMMARY | 2024-12-07 14:44 | XMS_ITS | Clinical Summary ---
Author Organization [facility] Address [address] [place] [address] Care Team Providers Care Industrial Controls Technician Name Role Phone Unavailable Primary Care Provider Unavailabl e Surgical History Surgery Date Site/Laterality Comments SECTION PROCEDURE: GA DELIVERY ONLY; COMMENT: X2 TUBAL LIGATION PROCEDURE: [...] 010, 09/25/2009 Depression Screening 02/23/2024 COVID-19 Vaccine (1 - 2023-2 5 season) 2024 Influenza Vaccine (#1) 2024 3, 04/26/2009 RSV Immunization Adult Patients (1 - 1-dose 75+ series) 2045 Varicella Vaccines Aged Out 11/06/2009, 09/25/2009 No [...]
--- OUTSIDE RECORDS SUMMARY | 2024-12-07 14:44 | XMS_ITS | Encounter Summary ---
Author Organization [employer] Address [address] [place] [address] 7t [place] [address] Care Team Providers Care Avionics Systems Repairer Name Role Phone Name, Segundo PETE Primary Care Provider [phone] Sandra Headley PharmD Unavailable [phone] Encounter Details Date Type Department Care Team (Latest Contact Info) Description 04/13/2018 Abstract [facility] CONVERSIONS Dental, Provider, DDS Social History [...] Upcoming Encounters Date Type Department Care Team ( st Contact Info) Description 02/01/2025 11:15 AM EST Office Visit [facility] MEDICINE [address] [place] [address] NameSegundo MD 230 [place] [address] documented as of this encounter Visit Diagnoses Not on filedocumented in this encounter Care Teams Avionics Systems Repairer Relationship Specialty Start Date End Date NameSegundo MD 230 [place] [address] PCP - General Family Medicine 07/09/15 Sandra Headley, VirgenD [address] [place] [address] Pharmacist Internal Medicine 08/19/21 06/17/22 documented as of this encounter
--- OUTSIDE RECORDS SUMMARY | 2024-12-07 14:44 | XMS_ITS | Encounter Summary ---
Author Organization [employer] Address [address] [place] [address] 7t [place] [address] Care Team Providers Care Head Of Product Name Role Phone Name, Segundo PETE Primary Care Provider [phone] Reason for Visit * Reason Comments Med Refill Encounter Details Date Type Department Care Team ([facility] st Contact Info) Description 12/14/2022 Refill [facility] [address] [place] [address] Rajwinder Stevens, DRAFTER MARINE [address] [place] [address] Chronic pain syndrome Social History Tobacco Use [...] Description 02/01/2025 11:15 AM EST Office Visit [facility] MED[facility] [address] [place] [address] Name, MD Segundo [address] [place] [address] documented as of this encounter Visit Diagnoses Diagnosis Chronic pain syndrome documented in this encounter Additional Health Concerns Assessment Noted Time PHQ-9 Depression Total Score: 5 03/05/19 23 11:06 AM EST documented as of this encounter Care Teams Head Of Product Relationship Specialty Start Date End Date NameSegundo MD [address] [place] [address] PCP - General Family Medicine 07/09/15 documented as of this encounter
--- OUTSIDE RECORDS SUMMARY | 2024-12-07 14:44 | XMS_ITS | Encounter Summary ---
Author Organization [employer] Address [address] [place] [address] 7t [place] [address] Care Team Providers Care Paperhanger And Painter Name Role Phone NameSegundo MD Primary Care Provider [phone] Reason for Visit * Reason Comments Med Refill Encounter Details Date Type Department Care Team ([facility] st Contact Info) Description 12/06/2024 Refill [facility] MEDICINE 230 [place] [address] Name, MD Segundo [address] [place] [address] Heartburn Social History Tobacco Use Types Packs/Day [...] Description 02/01/2025 11:15 AM EST Office Visit [facility] MEDICINE [address] [place] [address] NameeSgundo MD 230 [place] [address] documented as of this encounter Visit Diagnoses Diagnosis Heartburn documented in this encounter Additional Health Concerns Assessment Noted Time PHQ-9 Depression Total Score: 9 08/29/19 25 11:21 AM EDT documented as of this encounter Care Teams Paperhanger And Painter Relationship Specialty Start Date End Date NameSegundo MD [address] [place] [address] PCP - General Family Medicine 07/09/15 documented as of this encounter
--- OUTSIDE RECORDS SUMMARY | 2024-12-07 14:44 | XMS_ITS | Encounter Summary ---
Author Organization [employer] Address [address] [place] [address] 7t [place] [address] Care Team Providers Care Furnace Installer Helper Name Role Phone NameSegundo MD Primary Care Provider [phone] Reason for Visit * Reason Comments Med Change Request Encounter Details Date Type Department Care Team ([facility] st Contact Info) Description 09/21/2024 Refill [facility] MED[facility] 230 [place] [address] Name, MD Segundo 230 [place] [address] Chronic low back pain, unspecified back pain [...] Description 02/01/2025 11:15 AM EST Office Visit [facility] MEDICINE [address] [place] [address] NameSegundo MD 230 [place] [address] documented as of this encounter Visit Diagnoses Diagnosis Chronic low back pain, unspecified back pain laterality, unspecified whether sciatica present documented in this encounter Additional Health Concerns Assessment Noted Time PHQ-9 Depression Total Score: 9 08/29/19 25 11:21 AM EDT documented as of this encounter Care Teams Furnace Installer Helper Relationship Specialty Start Date End Date NameSegundo MD [address] [place] [address] PCP - General Family Medicine 07/09/15 documented as of this encounter
--- OUTSIDE RECORDS SUMMARY | 2024-12-07 14:44 | XMS_ITS | Encounter Summary ---
Author Organization [employer] Address [address] [place] [address] 7t [place] [address] Care Team Providers Care Industrial Commercial Groundskeeper Name Role Phone NameSegundo MD Primary Care Provider [phone] Sandra Headley PharmD Unavailable [phone] Reason for Visit * Reason Comments Med Refill Encounter Details Date Type Department Care Team (Late st Contact Info) Description 04/15/2022 Refill [facility] MEDICINE [address] [place] [address] Segundo Siddiqui MD [address] [place], [place] [phone] Exacerbation of chronic back pain; Radicular syndrome [...] Description 02/01/2025 11:15 AM EST Office Visit [facility] MEDICINE [address] [place] [address] NameSegundo MD [address] [place] [address] documented as of this encounter Visit Diagnoses Diagnosis Exacerbation of chronic back pain Radicular syndrome of right leg documented in this encounter Additional Health Concerns Assessment Noted Time PHQ-9 Depression Total Score: 5 03/05/19 23 11:06 AM EST documented as of this encounter Care Teams Industrial Commercial Groundskeeper Relationship Specialty Start Date End Date Name, MD Segundo [address] [place] [address] PCP - General Family Medicine 07/09/15 Sandra Headley PharmD [address] [place] [address] Pharmacist Internal Medicine 08/19/21 06/17/22 documented as of this encounter
--- OUTSIDE RECORDS SUMMARY | 2024-12-07 14:44 | XMS_ITS | Encounter Summary ---
Author Organization [employer] Address [address] [place] [address] 7 [place] [address] Care Team Providers Care Negotiator Name Role Phone NameSegundo MD Primary Care Provider Encounter Details Date Type Department Care Team (Late st Contact Info) Description 08/04/2022 Abstract [facility] MEDICINE [address] [place] [address] NameSegundo MD [address] [place] [address] Social History Tobacco Use Types Packs/Day Years [...] Description 02/01/2025 11:15 AM EST Office Visit [facility] MEDICINE [address] [place] [address] Segundo Siddiqui MD [address] [place] [address] documented as of this encounter Procedures Procedure Name Priority Date/Time Associated Diagnosis Comments COLONOSCOPY Routine 11/14/2021 10:32 AM EDT HM PAP/HPV Routine 05/28/2021 documented in this encounter Results * Colonoscopy (11/14/2021 10:32 AM EDT) Colonoscopy Normal Normal Narrative Teresita, Surekha - 11/14/2021 10:32 AM EDT Recommended 5 [...] documented as of this encounter Care Teams Negotiator Relationship Specialty Start Date End Date Name, MD Segundo [address] [place] [address] PCP - General Family Medicine 07/09/15 documented as of this encounter
--- OUTSIDE RECORDS SUMMARY | 2024-12-07 14:44 | XMS_ITS | Encounter Summary ---
Author Organization [employer] Address [address] [place] [address] 7t [place] [address] Care Team Providers Care Shrub Grower Name Role Phone Name, Segundo PETE Primary Care Provider [phone] Sandra Headley PharmD Unavailable Reason for Visit * Reason Comments Med Refill Encounter Details Date Type Department Care Team (Late st Contact Info) Description 03/16/2022 Refill [facility] MEDICINE [address] [place], [place] [phone] Name, MD Segundo [address] [place], [place] [phone] Exacerbation of chronic back pain; Radicular syndrome [...] Description 02/01/2025 11:15 AM EST Office Visit [facility] MEDICINE [address] [place] [address] Name, [place] [address] documented as of this encounter Visit Diagnoses Diagnosis Exacerbation of chronic back pain Radicular syndrome of right leg documented in this encounter Additional Health Concerns Assessment Noted Time PHQ-9 Depression Total Score: 5 03/05/19 11:06 AM EST documented as of this encounter Care Teams Shrub Grower Relationship Specialty Start Date End Date Name, MD Segundo [address] [address] PCP - General Family Medicine 07/09/15 Sandra Headley PharmD [address] [place] [phone] Pharmacist Internal Medicine 08/19/21 06/17/22 documented as of this encounter
--- OUTSIDE RECORDS SUMMARY | 2024-12-07 14:44 | XMS_ITS | Encounter Summary ---
Author Organization [employer] Address [address] [place] [address] 7t [place] [address] Care Team Providers Care Account Development Executive Name Role Phone Name, Segundo PETE Primary Care Provider [phone] Reason for Visit * Reason Onset Date Comments Med Refill 03/08/2024 Encounter Details Date Type Department Care Team (Late st Contact Info) Description 03/08/2024 Telephone [facility] MEDICINE [address] [place] [address] Name, MD Segundo [address] [place] [address] Med Refill Social History Tobacco Use Types [...] 1:56 PM EST Script was sent to [id number] on 01/06/24 with 11 refills. * Telephone Encounter - Nora Basurto - 03/08/2024 12:39 PM EST TC from pt requesting medication refill. Medications needing refill : OneTouch Verio test strip To be sent to: [facility]/pharmacy #[id number] documented in this encounter Plan of Treatment Upcoming Encounters Date Type Department Care Team ([facility] st Contact Info) Description 02/01/2025 11:15 AM EST Office Visit [facility] MEDICINE [address] [place] [address] Name, MD Segundo [address] [place] [address] documented as of this encounter Visit Diagnoses Not on filedocumented in this encounter Additional Health Concerns Assessment Noted Time PHQ-9 Depression Total Score: 0 09/22/19 24 3:22 PM EDT documented as of this encounter Care Teams Account Development Executive Relationship Specialty Start Date End Date Name, MD Segundo [address] [place] [address] PCP - General Family Medicine 07/09/15 documented as of this encounter
--- OUTSIDE RECORDS SUMMARY | 2024-12-07 14:44 | XMS_ITS | Encounter Summary ---
Author Organization [employer] Address [address] [place] [address] 7t [place] [address] Care Team Providers Care Mounter Name Role Phone Name, Segundo PETE Primary Care Provider Sandra Headley PharmD Unavailable [phone] Reason for Visit * Reason Comments Med Refill Encounter Details Date Type Department Care Team (Late st Contact Info) Description 05/18/2022 Refill [facility] [address] [place], [place] [phone] Name, MD Segundo [address] [place], [place] [phone] Chronic low back pain, unspecified back pain [...] Description 02/01/2025 11:15 AM EST Office Visit [facility] MEDICINE [address] [place], [place] [phone] Name, MD Segundo [address] [place] [address] documented as of this encounter Visit Diagnoses Diagnosis Chronic low back pain, unspecified back pain laterality, unspecified whether sciatica present- Primary documented in this encounter Additional Health Concerns Assessment Noted Time PHQ-9 Depression Total Score: 5 03/05/19 23 11:06 AM EST documented as of this encounter Care Teams Mounter Relationship Specialty Start Date End Date Name, MD Segundo [address] [place] [address] PCP - General Family Medicine 07/09/15 Sandra Headley PharmD [address] [place] [address] Pharmacist Internal Medicine 08/19/21 06/17/22 documented as of this encounter
--- OUTSIDE RECORDS SUMMARY | 2024-12-07 14:44 | XMS_ITS | Encounter Summary ---
Author Organization [employer] Address [address] [place] [address] 7t [place] [address] Care Team Providers Care Telephone Recorder Name Role Phone Name, Segundo PETE Primary Care Provider [phone] Reason for Visit * Reason Comments Med Refill Encounter Details Date Type Department Care Team (Late st Contact Info) Description 05/19/2023 Refill [facility] MEDICINE [address] [place] [address] Name, MD Segundo [address] [place] [address] Chronic low back pain, unspecified back pain [...] T/C to pt for status check via [facility] #[id number]. No answer, v/m left to return call to [place] team nurses. documented in this encounter Plan of Treatment Upcoming Encounters Date Type Department Care Team (Late st Contact Info) Description 02/01/2025 11:15 AM EST Office Visit [facility] MEDICINE [address] [place] [address] NameSegundo MD [address] [place] [address] documented as of this encounter Visit Diagnoses Diagnosis Chronic low back pain, unspecified back pain laterality, unspecified whether sciatica present documented in this encounter Additional Health Concerns Assessment Noted Time PHQ-9 Depression Total Score: 5 03/05/19 23 11:06 AM EST documented as of this encounter Care Teams Telephone Recorder Relationship Specialty Start Date End Date Name, MD Segundo [address] [place] [address] PCP - General Family Medicine 07/09/15 documented as of this encounter
--- OUTSIDE RECORDS SUMMARY | 2024-12-07 14:44 | XMS_ITS | Encounter Summary ---
Author Organization [employer] Address [address] [place] [address] 7t [place] [address] Care Team Providers Care Anatomical Embalmer Name Role Phone Name, Segundo PETE Primary Care Provider [phone] Reason for Visit * Reason Onset Date Comments fyi 08/04/2024 Encounter Details Date Type Department Care Team ([facility] st Contact Info) Description 08/04/2024 Telephone [facility] MEDICINE 230 [place] [address] Name, MD Segundo [address] [place] [address] fyi Social History Tobacco Use Types Packs/Day [...] appointment notes that pt will need referralto hook and eye attacher due to eye screening that showed 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 Follow-up with PCP is recommended for referral to an hook and eye attacher. If any questions contact Cristina - [phone] documented in this encounter Plan of Treatment Upcoming Encounters Date Type Department Care Team (Late st Contact Info) Description 02/01/2025 11:15 AM EST Office Visit [facility] MEDICINE [address] [place] [address] Name, MD Segundo [address] [place] [address] documented as of this encounter Visit Diagnoses Not on filedocumented in this encounter Additional Health Concerns Assessment Noted Time PHQ-9 Depression Total Score: 0 09/22/19 24 3:22 PM EDT documented as of this encounter Care Teams Anatomical Embalmer Relationship Specialty Start Date End Date Name, [place] [address] PCP - General Family Medicine 07/09/15 documented as of this encounter
--- OUTSIDE RECORDS SUMMARY | 2024-12-07 14:44 | XMS_ITS | Encounter Summary ---
Author Organization [employer] Address [address] [place] [address] 7t [place] [address] Care Team Providers Care Commissary Agent Name Role Phone Name, Segundo PETE Primary Care Provider [phone] Reason for Visit * Reason Comments Med Refill Encounter Details Date Type Department Care Team (Late st Contact Info) Description 03/04/2023 Refill [facility] MEDICINE [address] [place] [address] Natalie Love FNP [address] [place] [address] Migraine without status migrainosus, not intractable, unspecified [...] Description 02/01/2025 11:15 AM EST Office Visit [facility] MEDICINE [address] [place] [address] Name, MD Segundo [address] [place] [address] documented as of this encounter Visit Diagnoses Diagnosis Migraine without status migrainosus, not intractable, unspecified migraine type documented in this encounter Additional Health Concerns Assessment Noted Time PHQ-9 Depression Total Score: 5 03/05/19 23 11:06 AM EST documented as of this encounter Care Teams Commissary Agent Relationship Specialty Start Date End Date Name, MD Segundo [address] [place] [address] PCP - General Family Medicine 07/09/15 documented as of this encounter
--- OUTSIDE RECORDS SUMMARY | 2024-12-07 14:44 | XMS_ITS | Clinical Summary ---
Author Organization [employer] Address [address] [place] [address] 7[address] [place] [address] Care Team Providers Care Exhibit Electrician Name Role Phone Name, Segundo PETE Primary Care Provider [phone] Allergies Active Allergy Reactions Criticality Noted Date [...] a day 1 kit 10/01/19 23 Active OneTouch Verio test strip USE RAMESH LO INDICADO DOS VECES AL ABI 100 strip 11 01/06/20 24 Active OneTouch Delica Lancets 33G miscIndications :Type 2 diabetes mellitus with other specified complication, without long-term current use of insulin (HCC) USE TO TEST BLOOD SUGAR TWICE A [...] KOMAL TABLETA TODOS LOS ZARAGOZA EN LA [facility] 90 tablet 3 08/29/19 25 Active baclofen (Lioresal) 10 MG tabletIndicatio ns:Chronic low back pain, unspecified back pain laterality, unspecified whether sciatica present Take 1 tablet (10 mg) by mouth 2 times daily. 60 tablet 08/29/19 25 Active metFORMIN XR (Glucophage-XR) 750 MG 24 hr tabletIndicatio ns:Type 2 diabetes mellitus without complication, without long-term current use of insulin (HCC) Take 1 tablet (750 mg) by mouth with evening meal. Do not crush, chew, or split. 30 tablet 11 08/29/19 25 026 Active Fluocinolone Acetonide Scalp 0.01 % oil APPLY BY THIN LAYER TO DAMP SCALP MASSAGE WELL AND COVER LEAVE ON FOR 4 HOURS OR OVERNIGHT THEN WASH OFF USE IT FOR 5 DAYS THEN CUANDO SEA NECESARIO 118.28 mL 3 09/27/19 25 Active traMADol (Ultram) 50 MG tabletIndicatio ns:Chronic low back pain, unspecified back pain laterality, unspecified whether sciatica present TOME KOMAL TABLETA EN LA MANANA Y AL ACOSTARSE CUANDO SEA NECESARIO PARA EL DOLOR RAJINDER POR 28 ZARAGOZA 56 tablet 10/18/19 25 Active gabapentin (Neurontin) 800 MG tablet Take 1 tablet by mouth every 6 (six) hours during the day. 10/09/19 25 Active Senna-Time 8.6 MG tablet TAKE 1 TABLET (8.6 MG) BY MOUTH AT BEDTIME. 90 tablet 3 10/31/19 25 Active naproxen (Naprosyn) 500 MG tabletIndicatio ns:Chronic migraine with aura without status migrainosus, not intractable TAKE 1 TABLET BY MOUTH TWICE A DAY 60 tablet 11/07/19 25 Active cetirizine (ZyrTEC) 10 MG tabletIndicatio ns:Seasonal allergies TAKE 1 TABLET BY MOUTH EVERY DAY 90 tablet 1 11/25/19 25 Active omeprazole (PriLOSEC) [address] capsuleIndicati ons:Heartburn TAKE 1 CAPSULE BY MOUTH EVERY DAY BEFORE BREAKFAST 90 capsule 12/07/19 25 Active cetirizine (ZyrTEC) 10 MG tabletIndicatio ns:Seasonal allergies Take 1 tablet (10 mg) by mouth Once per day. 30 tablet 2 08/29/19 25 025 Discontinued omeprazole (PriLOSEC) [address] capsuleIndicati ons:Heartburn TAKE 1 CAPSULE BY MOUTH EVERY DAY BEFORE BREAKFAST 90 capsule 09/12/19 25 10/15/2 025 Discontinued Active Problems Problem Noted Date Diagnosed Date Primary hypertension 09/22/2023 COVID-19 02/02/2022 Decreased hearing 02/02/2022 Drug-induced constipation 02/02/2022 Tinea pedis 12/03/2020 Psoriasis 12/31/2017 Migraine 05/24/2017 Trochanteric bursitis of both hips 05/24/2017 Right upper quadrant pain 08/03/2016 Moderate persistent asthma 05/27/2016 Eczema, dyshidrotic 03/27/2016 Depression 07/24/2014 High cholesterol 03/27/2014 Type 2 diabetes mellitus, wi thout long-term current use of insulin 08/30/2013 Fibroadenoma of breast 02/09/2012 Displacement of lumbar inter vertebral disc without myelopathy 01/20/2010 Low back pain 01/20/2010 Ovarian cyst 01/20/2010 Radiculitis, lumbosacral 11/06/2009 Seasonal allergies 04/26/2009 Encounters Date Type Department Care Team Description 12/06/2024 Refill [facility] MEDICINE [address] [place] [address] NameSegundo MD Heartburn 11/24/2024 Refill [facility] [address] [place] [address] NameSegundo MD Seasonal allergies 11/15/2024 Telephone [facility] [address] [place] [address] Tre Monahan [place] december recalls 11/08/2024 9:45 AM EDT Office Visit [facility] OPTOMETRY [address] [place] [address] Benjamin, Shanell, OD Presbyopia (Primary Dx) 11/08/2024 Travel 11/05/2024 Refill [facility] MEDICINE [address] [place] [address] NameSegundo MD Chronic migraine with aura without status migrainosus, not intractable 11/03/2024 Orders Only [facility] External Provider, [facility] 10/28/2024 Refill [facility] MEDICINE [address] [place] [address] Segundo Siddiqui MD 10/17/2024 1:30 PM EDT Office Visit [facility] [address] [place] [address] [phone] Montrell Rivas, DMD 10/16/2024 Refill [facility] MED[facility]INE [address] [place] [address] NameSegundo MD Chronic low back pain, unspecified back pain laterality, unspecified whether sciatica present 09/27/2024 2:30 PM EDT Office Visit [facility] OPTOMETRY [address] [place] [address] Benjamin, Shanell, OD Diabetes type 2, no ocular involvement (CMS/HCC) (Primary Dx); White without pressure of peripheral retina of right eye; Combined forms of age-related cataract of both eyes; Presbyopia 09/27/2024 Travel 09/26/2024 Refill [facility] MED[facility]INE [address] [place] [address] Segundo Siddiqui MD Chronic migraine with aura without status migrainosus, not intractable 09/24/2024 Refill [facility] MED[facility]INE [address] [place] [address] Segundo Siddiqui MD 09/21/2024 Refill [facility] MED[facility]INE [address] [place] [address] Segundo Siddiqui MD Chronic low back pain, unspecified back pain laterality, unspecified whether sciatica present 09/13/2024 Telephone [facility] [address] [place] [address] Segundo Siddiqui MD 09/09/2024 Refill [facility] MED[facility]INE [address] [place] [address] Segundo Siddiqui MD Heartburn from Last 3 Months Immunizations Immunization Administration Dates Next Due Influenza Injectable Quadriv alant Preservative Free IIV4 MDCK 01/06/2022 Influenza injectable quadriv alent IIV4 with preservative 11/25/2016,11/13/2015 Influenza injectable quadriv alent preservative free 02/01/2023,12/03/2020,02/19/2020,01/12 Influenza, IIV3, injectable 12/23/2012 Influenza, seasonal, injecta ble, preservative free 01/12/2024 Novel [id number], preservative-free 04/26/2009 PPD Test 06/23/2010 Pneumococcal Conjugate [...] 08/28/2024 10:24 AM EDT Plan of Treatment Upcoming Encounters Date Type Department Care Team (Late st Contact Info) Description 02/01/2025 11:15 AM EST Office Visit [facility]INE [address] [place] [address] Name, MD Segundo [address] [place] [address] Health Maintenance Due Date Last Done Comments [...] 09/27/2024, Additional history exists Mammogram 10/18/2026 10/18/2024, 0606/2020, 09/14/2018 Colonoscopy 11/14/2026 11/14/2021 Colorectal Cancer Screening [...] Procedure Name Priority Date/Time Associated Diagnosis Comments FL GUIDANCE IN OR Routine 11/03/2024 11: 32 AM EDT GLUCOSE, WHOLE BLOOD Routine 11/03/2024 11:03 AM EDT BI MAMMOGRAM SCREENING TOMOSYNTHESIS BILATERAL Routine 10/18/2024 1:11 PM EDT Screening mammogram for breast cancer DENTURE ADJUSTMENT Routine 10/17/2024 1: 30 PM EDT POCT GLYCATED HEMOGLOBIN, TOTAL Routine 08/28/2024 10:26 AM EDT Type 2 diabetes mellitus without complication, without long-term current use of insulin ([facility]/HCC) LIPID PANEL, STANDARD Routine 05/15/2024 11:35 AM EDT Type 2 diabetes mellitus with other specified complication, without long-term current use of insulin (CMS/HCC) Primary hypertension High cholesterol ALBUMIN, RANDOM URINE W/CREATININE Routine 05/15/2024 11:30 AM EDT Type 2 diabetes mellitus with other specified complication, without long-term current use of insulin ([facility]/HCC) Primary hypertension High cholesterol PROPHYLAXIS - ADULT [...] Recently Relevant to Health Maintenance Results * FL Guidance in OR (11/03/2024 11:32 AM EDT) Anatomical Region Laterality Modality X-Ray Angiograph y 11/03/2024 11:3 2 AM EDT Narrative 11/03/2024 12:08 PM EDT [address] [address] Fluoroscopy Report Signed Patient: Jen Mai MR #: [id number] : 1970 Acct:[id number] Age/Sex: 54 / F ADM Date: 11/03/24 Loc: .[facility] Attending Dr: Arben Hanson MD Ordering Physician: Arben Hanson MD Date of Service: 11/03/24 Procedure(s): FL guidance in OR Accession Number(s): [id number] cc: Arben Hanson MD; Name,Segundo PETE Reason for Exam: Therapeutic Sacroiliac Joint Steroid Injection EXAMINATION: FL GUIDANCE ONLY HISTORY: Therapeutic Sacroiliac Joint Steroid Injection COMPARISON: None available. TECHNIQUE: Fluoroscopy time: 8.7 seconds. Cumulative Dose: 1.8652 mGy. DAP: 0.4958 mGym2 Images: 4. FINDINGS: Fluoroscopic spot films of the right hemipelvis demonstrate a needle and contrast material in the region of the sacroiliac joint. FL/FL guidance in OR IMPRESSION: Fluoroscopy during procedure. Please see procedure report for additional information. Electronically signed by: Kaleb Cuellar MD 11/03/2024 12:05 PM EDT Dictated By: Kaleb Cuellar MD Signed By: <Electronically signed by Kaleb Cuellar MD in OV> 11/03/24 1205 DD/ 1132 TD/TT: 11/03/24 1146 [place] Clerk: Procedure Note Donotuseinterpreter, Image - 11/03/[address] [address] Fluoroscopy Report Signed Patient: Jen Mai LMR #: [id number] : 1970Acct:[id number] Age/Sex: 54 / FADM Date: 11/03/24 Loc: HO.SSS Attending Dr: Arben Hanson MD Ordering Physician: Arben Hanson MD Date of Service: 11/03/24 Procedure(s): FL guidance in OR Accession Number(s): [id number] cc: Arben Hanson MD; Name,Segundo PETE Reason for Exam: Therapeutic Sacroiliac Joint Steroid Injection EXAMINATION: FL GUIDANCE ONLY HISTORY: Therapeutic Sacroiliac Joint Steroid Injection COMPARISON: None available. TECHNIQUE: Fluoroscopy time: 8.7 seconds. Cumulative Dose: 1.8652 mGy. DAP: 0.4958 mGym2 Images: 4. FINDINGS: Fluoroscopic spot films of the right hemipelvis demonstrate a needle and contrast material in the region of the sacroiliac joint. FL/FL guidance in OR IMPRESSION: Fluoroscopy during procedure. Please see procedure report for additional information. Electronically signed by: Kaleb Cuellar MD 11/03/2024 12:05 PM EDT Dictated By: Kaleb Cuellar MD Signed By: <Electronically signed by Kaleb Cuellar MD in OV> 11/03/24 1205 DD/ 1132 TD/TT: 11/03/24 1146 [place] Clerk: us [facility] External Provider IMG IR PROCEDURES Final Result * (ABNORMAL) Glucose, Whole Blood (11/03/2024 11:03 AM EDT) Glucose, Whole Blood 174(H) 60 - 115 mg/dL [facility] Comment:METER #: [id number] 11/03/2024 11:0 3 AM EDT 11/03/2024 11:07 AM EDT us Generic External Data Provider LAB BLOOD ORDERAB LES Final Result [facility] [address] [place] [address] [phone] * BI Mammogram Screening Tomosynthesis Bilateral (10/18/2024 1:11 PM EDT) Anatomical Region Laterality Modality Breast Bilateral Mammography 10/18/2024 1:11 PM EDT Narrative 10/21/2024 2:59 PM EDT [facility] [address] [place] [address] Mammography Report Signed Patient: Jen Mai MR #: [id number] : 1970 Acct:[id number] Age/Sex: 54 / F ADM Date: 10/18/24 Loc: HO.MAMMO Attending Dr: Segundo Siddiqui MD Ordering Physician: Segundo Siddiqui MD Results: 2Benign Fi ndings Date of Service: 10/18/24 Follow Up: 1 Year From Orig ina Mammogram Procedure(s): MM tomosynthesis screening BI Accession Number(s): [id number] cc: Segundo Siddiqui MD EXAMINATION: MM SCREENING [...] Pamela Roy MD 10/21/2024 02:55 PM EDT RP Dictated By: Pamela Roy MD Signed By: <Electronically signed by Pamela Roy MD in OV> 10/21/24 1455 DD/ 1311 TD/TT: 10/18/24 1334 [place] Clerk: Procedure Note Donotuseinterpreter, Image - 10/21/2024 [facility] [address] [place], [place] [address] Mammography Report Signed Patient: Jen Mai LMR #: [id number] : 1970Acct:[id number] Age/Sex: 54 / FADM Date: 10/18/24 Loc: HO.MAMMO Attending Dr: Segundo Siddiqui MD Ordering Physician: Segundo Siddiqui MDResults: 2Benign ndings Date of Service: 10/18/24Follow Up: 1 Year From [facility] Mammogram Procedure(s): MM tomosynthesis screening BI Accession Number(s): [id number] cc: Segundo Siddiqui MD EXAMINATION: MM SCREENING [...] 10/21/24 1455 DD/ 1311 TD/TT: 10/18/24 1334 [place] Clerk: us Segundo Siddiqui MD IMG BI PROCEDURES Final Result * (ABNORMAL) POCT HGB A1C (08/28/2024 10:26 AM EDT) Hemoglobin A1C 7.5(A) 4.0 - 5.7 % QC Media Lot # [id number] Lot# Expiration Date Blood 08/28/2024 10:2 6 AM EDT us Segundo Siddiqui MD POINT OF CARE TEST ENTER/EDIT OR DERABLES Final Result * (ABNORMAL) Lipid Panel, Standard (05/15/2024 11:35 AM EDT) Triglycerides 89 <150 mg/dL [facility] Comment:Desirable Triglyceri de: less than 150 mg/dLBorderline High Triglyceride 150-199 mg/dLHigh Triglyceride: 200-499 mg/dLVery High Triglyceride: greater than or equal to 5OO mg/dL Cholesterol 184 <200 mg/dL [facility] Comment:Desirable Cholestero l: less than 200 mg/dLBorderline High Cholesterol: 200-239 mg/dLHigh Cholesterol: greater than 239 mg/dL LDL Cholesterol Calculated 120(H) <100 mg/dL [facility] Comment:Desirable LDL: less than 100 mg/dLNear Optimal/Above Optimal LDL: 110- 129 mg/dLBorderline High LDL: 130-159 mg/dLHigh LDL: 160-189 mg/dLVery High LDL: greater than or equal to 190 mg/dL HDL Cholesterol 47 >40 mg/dL [facility] Comment:Desirable HDL: great er than 40 mg/dL Note: This HDL assay may give artificially low results in patients with liver disease. Blood Venous blood specimen / Unknown 05/15/2024 11:35 AM EDT 05/15/2024 1:44 PM EDT us Segundo Siddiqui MD LAB BLOOD ORDERABLES Final Resul t Performing Organization Address [facility]/ZIP Co de Phone Number [facility] [address] [place] [phone] * Albumin, Random Urine W/Creatinine (05/15/2024 11:30 AM EDT) Creatinine, Urine 171.56 mg/dL [facility] Microalbumin Urine 48.0 mg/L [facility] Microalbum Creatinine Ratio Ur 27.9 <30 ug/mg cr [facility] Comment:Albumin/Creatinine R atio Reference Ranges: Normal: < 30 ug/mg creatinine Microalbuminuria: 30 - 300 ug/mg creatinineClinical Albuminuria: > 300 ug/mg creatinine Urine (Urine, Random) 05/15/2024 11:30 AM EDT 05/15/2024 1:09 PM EDT us Segundo Siddiqui MD LAB URINE ORDERABLES Final Resul t Performing Organization Address City/[facility]/ZIP Co de Phone Number [facility] [address] [place] [address] [phone] * Colonoscopy (11/14/2021 10:32 AM EDT) Colonoscopy Normal Normal Narrative Surekha Lo - 11/14/2021 10:32 AM EDT Recommended 5 year follow up Historical Provider HEALTH MAINTENANCE Final Result * Pap Smear (05/28/2021) Pap Negative for intraephithelial lesion or malignancy Negative for intraephithelial lesion or malignancy, Other HPV Undetected 05/28/2021 Historical Provider MD HEALTH MAINTENANCE Final Result from Last 3 Months or Most Recently Relevant to Health Maintenance Insurance [facility] MEDICARE ADVANTAGE HMO [facility] STANDARD Care Teams Exhibit Electrician Relationship Specialty Start Date End Date Name, MD Segundo [address] [place], [place] [phone] PCP - General Family Medicine 07/09/15
--- OUTSIDE RECORDS SUMMARY | 2024-12-07 14:44 | XMS_ITS | Encounter Summary ---
Author Organization [employer] Address [address] [place] [address] [address] [place] [address] Care Team Providers Care Commercial Insulator Name Role Phone Name, Segundo PETE Primary Care Provider [phone] Encounter Details Date Type Department Care Team (Late st Contact Info) Description 06/18/2022 Orders Only [facility] MEDICINE [address] [place] [phone] Sandra Headley, PharmD [address] [place] [address] Social History Tobacco Use Types Packs/Day Years [...] Description 02/01/2025 11:15 AM EST Office Visit [facility] [address] [place] [address] Name, MD Segundo [address] [place] [address] documented as of this encounter Visit Diagnoses Not on filedocumented in this encounter Additional Health Concerns Assessment Noted Time PHQ-9 Depression Total Score: 5 03/05/19 23 11:06 AM EST documented as of this encounter Care Teams Commercial Insulator Relationship Specialty Start Date End Date Name, [place] [address] PCP - General Family Medicine 07/09/15 documented as of this encounter
--- OUTSIDE RECORDS SUMMARY | 2024-12-07 14:44 | XMS_ITS | Encounter Summary ---
Author Organization [employer] Address [address] [place] [address] [address] [place] [address] Care Team Providers Care Rental Clerk Name Role Phone NameSegundo MD Primary Care Provider Reason for Visit * Reason Comments Med Refill Encounter Details Date Type Department Care Team (Late st Contact Info) Description 08/30/2022 Refill [facility] [address] [place] [address] Segundo Siddiqui MD [address] [place] [address] [phone] High cholesterol; Exacerbation of chronic back pain; [...] Description 02/01/2025 11:15 AM EST Office Visit [facility] [address] [place], [place] [phone] Segundo Siddiqui MD [address] [place] [address] [phone] documented as of this encounter Visit Diagnoses Diagnosis High cholesterol Pure hypercholesterolemia Exacerbation of chronic back pain Radicular syndrome of right leg documented in this encounter Additional Health Concerns Assessment Noted Time PHQ-9 Depression Total Score: 5 03/05/19 23 11:06 AM EST documented as of this encounter Care Teams Rental Clerk Relationship Specialty Start Date End Date Name, MD Segundo [address] [place] [address] PCP - General Family Medicine 07/09/15 documented as of this encounter
--- OUTSIDE RECORDS SUMMARY | 2024-12-07 14:44 | XMS_ITS | Encounter Summary ---
Author Organization [employer] Address [address] [place] [address] [address] [place] [address] Care Team Providers Care Psychiatry Physician Name Role Phone NameSegundo MD Primary Care Provider [phone] Reason for Visit * Reason Comments Med Refill Encounter Details Date Type Department Care Team ([facility] st Contact Info) Description 01/07/2023 Refill [facility]INE [address] [place] [address] Name, MD Segundo [address] [place] [address] Social History Tobacco Use Types Packs/Day Years [...] 02/01/2025 11:15 AM EST Office Visit [facility] MED[facility]INE [address] [place] [address] Name, MD Segundo [address] [place] [address] documented as of this encounter Visit Diagnoses Not on filedocumented in this encounter Additional Health Concerns Assessment Noted Time PHQ-9 Depression Total Score: 5 03/05/19 23 11:06 AM EST documented as of this encounter Care Teams Psychiatry Physician Relationship Specialty Start Date End Date Name, MD Segundo [address] [place] [phone] PCP - General Family Medicine 07/09/15 documented as of this encounter
--- OUTSIDE RECORDS SUMMARY | 2024-12-07 14:44 | XMS_ITS | Encounter Summary ---
Author Organization [employer] Address [address] [place] [address] [address]t [place] [address] Care Team Providers Care Optical Lens Manufacturing Tech Name Role Phone Name, Segundo PETE Primary Care Provider [phone] Reason for Visit * Reason Onset Date Comments Appointment Request 01/07/2023 Encounter Details Date Type Department Care Team ([facility] st Contact Info) Description 01/07/2023 Telephone [facility] [address] [place] [address] Name, MD Segundo [address] [place] [address] Appointment Request Social History Tobacco Use Types [...] stating that See her every 3 months. Manager Reliability don't nothing on last visit neither recall list. PCP Name documented in this encounter Plan of Treatment Upcoming Encounters Date Type Department Care Team (Late st Contact Info) Description 02/01/2025 11:15 AM EST Office Visit [facility] [address] [place] [address] Name, MD Segundo [address] [place] [address] documented as of this encounter Visit Diagnoses Not on filedocumented in this encounter Additional Health Concerns Assessment Noted Time PHQ-9 Depression Total Score: 5 03/05/19 23 11:06 AM EST documented as of this encounter Care Teams Optical Lens Manufacturing Tech Relationship Specialty Start Date End Date Name, MD Segundo [address] [place] [address] PCP - General Family Medicine 07/09/15 documented as of this encounter
--- OUTSIDE RECORDS SUMMARY | 2024-12-07 14:44 | XMS_ITS | Encounter Summary ---
Author Organization [employer] Address [address] [place] [address] [address] [place] [address] Care Team Providers Care Machine Candle Molder Name Role Phone NameSegundo MD Primary Care Provider [phone] Reason for Visit * Reason Comments Med Refill Encounter Details Date Type Department Care Team (Late st Contact Info) Description 05/07/2024 Refill [facility] [address] [place] [address] Name, MD Segundo [address] [place] [address] Social History Tobacco Use Types Packs/Day Years [...] Description 02/01/2025 11:15 AM EST Office Visit [facility] MED[facility]INE [address] [place] [phone] NameSegundo MD [address] [place] [address] documented as of this encounter Visit Diagnoses Not on filedocumented in this encounter Additional Health Concerns Assessment Noted Time PHQ-9 Depression Total Score: 0 09/22/19 24 3:22 PM EDT documented as of this encounter Care Teams Machine Candle Molder Relationship Specialty Start Date End Date NameSegundo MD [address] [place] [phone] PCP - General Family Medicine 07/09/15 documented as of this encounter
--- OUTSIDE RECORDS SUMMARY | 2024-12-07 14:44 | XMS_ITS | Encounter Summary ---
Author Organization [employer] Address [address] [place] [address] 7[address] [place] [address] Care Team Providers Care Er Physician Name Role Phone Name, Segundo PETE Primary Care Provider [phone] Sandra Headley PharmD Unavailable [phone] Encounter Details Date Type Department Care Team (Latest Contact Info) Description 04/04/2020 Abstract [facility] CONVERSIONS Dental, Provider, DDS Social [...] Description 02/01/2025 11:15 AM EST Office Visit [facility] MED[facility]INE [address] [place] [address] NameSegundo MD [address] [place] [address] documented as of this encounter Visit Diagnoses Not on filedocumented in this encounter Care Teams Er Physician Relationship Specialty Start Date End Date NameSegundo MD [address] [place] [address] PCP - General Family Medicine 07/09/15 Sandra Headley, VirgenD [address] [place] [phone] Pharmacist Internal Medicine 08/19/21 06/17/22 documented as of this encounter
--- OUTSIDE RECORDS SUMMARY | 2024-12-07 14:44 | XMS_ITS | Encounter Summary ---
Author Organization [employer] Address [address] [place] [address] 7 [place] [address] Care Team Providers Care Tabulating Machine Mechanic Name Role Phone NameSegundo MD Primary Care Provider [phone] Reason for Visit * Reason Comments Med Refill Encounter Details Date Type Department Care Team (Late st Contact Info) Description 10/22/2022 Refill [facility] [address] [place] [address] Segundo Siddiqui MD [address] [place] [address] Exacerbation of chronic back pain; Radicular syndrome [...] Description 02/01/2025 11:15 AM EST Office Visit [facility] [address] [place] [address] Segundo Siddiqui, MD [address] [place] [address] documented as of this encounter Visit Diagnoses Diagnosis Exacerbation of chronic back pain Radicular syndrome of right leg documented in this encounter Additional Health Concerns Assessment Noted Time PHQ-9 Depression Total Score: 5 03/05/19 23 11:06 AM EST documented as of this encounter Care Teams Tabulating Machine Mechanic Relationship Specialty Start Date End Date Name, MD Segundo [address] [place] [address] PCP - General Family Medicine 07/09/15 documented as of this encounter
--- OUTSIDE RECORDS SUMMARY | 2024-12-07 14:44 | XMS_ITS | Encounter Summary ---
Author Organization [employer] Address [address] [place] [address] 7 [place] [address] Care Team Providers Care Dog Warden Name Role Phone Name, Segundo PETE Primary Care Provider [phone] Reason for Visit * Reason Comments Med Refill Encounter Details Date Type Department Care Team (Late st Contact Info) Description 08/30/2022 Refill [facility] [place] [facility] [address] [place] [address] Rajwinder Stevens, BULLET MAKER [address] [place] [address] Heartburn Social History Tobacco Use Types Packs/Day [...] Description 02/01/2025 11:15 AM EST Office Visit [facility] [place] [address] [place] [address] Name, MD Segundo [address] [place] [address] documented as of this encounter Visit Diagnoses Diagnosis Heartburn documented in this encounter Additional Health Concerns Assessment Noted Time PHQ-9 Depression Total Score: 5 03/05/19 23 11:06 AM EST documented as of this encounter Care Teams Dog Warden Relationship Specialty Start Date End Date Name, MD Segundo [address] [place] [address] PCP - General Family Medicine 07/09/15 documented as of this encounter
--- OUTSIDE RECORDS SUMMARY | 2024-12-07 14:44 | XMS_ITS | Encounter Summary ---
Author Organization [employer] Address [address] [place] [address] [address] [place] [address] Care Team Providers Care Drafting Clerk Name Role Phone Name, Segundo PETE Primary Care Provider [phone] Sandra Headley PharmD Unavailable Encounter Details Date Type Department Care Team (Latest Contact Info) Description 08/29/2021 Abstract [facility] CONVERSIONS Dental, Provider, DDS Social [...] Description 02/01/2025 11:15 AM EST Office Visit [facility] [address] [place] [address] NameSegundo MD [address] [place] [address] documented as of this encounter Visit Diagnoses Not on filedocumented in this encounter Care Teams Drafting Clerk Relationship Specialty Start Date End Date NameSegundo MD [address] [place] [address] PCP - General Family Medicine 07/09/15 Sandra Headley, VirgenD [address] [place] [phone] Pharmacist Internal Medicine 08/19/21 06/17/22 documented as of this encounter
== END 2024-12-07 12:12 | disposition home or self-care (01) ==
LOC: HO.PMC 11:27
PROVIDERS: PCP Internal Medicine Geriatric Medicine; Visit Provider Anesthesiology
DX: M16.11 Unilateral primary osteoarthritis, right hip (principal); M25.552 Pain in left hip; M46.1 Sacroiliitis, not elsewhere classified; M53.3 Sacrococcygeal disorders, not elsewhere classified
CPT/HCPCS: 99213

== ENCOUNTER → 2024-12-07 11:26 | Outpatient (BNVA) | payer MEDICARE, MEDICAID, SELFPAY | PROVIDERS: PCP Internal Medicine Geriatric Medicine; Visit Provider Anesthesiology | DX: M53.3 Sacrococcygeal disorders, not elsewhere classified (principal); M46.1 Sacroiliitis, not elsewhere classified; M25.552 Pain in left hip; M16.11 Unilateral primary osteoarthritis, right hip; G89.4 Chronic pain syndrome; Z79.899 Other long term (current) drug therapy | CPT/HCPCS: 99212 ==

== ENCOUNTER 2025-01-05 14:27 | Outpatient (AMB) | payer MEDICARE, MEDICAID, SELFPAY ==
--- NOTE | 2025-01-05 14:29 | AM.OFFWIN_ITS ---
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 Patient reports having a sore throat but denies having any fevers, chills, headaches, ear pain, cough, shortness of breath or chest pain. Additionally, patient denies having any sick contacts at home. Patient has been taking Advil sinus without relief of her symptoms. Patient is seen utilizing a can pusher. [facility] Medical History Arthritis Diverticulosis Diabetes GERD (gastroesophageal reflux disease) Asthma Anxiety Vertigo Migraine with aura Endometrioma of ovary Chronic pain syndrome Sacroiliitis Low back pain Spondylosis of lumbosacral spine without myelopathy Surgical History Hx of colonoscopy S/P placement of nerve stimulator History of esophagogastroduodenoscopy (EGD) Hx of tubal ligation Hx of section Family History Maternal Aunt Breast cancer Social History Household Members: Significant Other and Family Are you a primary weekend caregiver to a significant other at home: No Do you presently have visiting nurse or other home services: No Alcohol intake: never Patient Tobacco Use Status: Former Tobacco user Tobacco use type: Cigarette Female Reproductive History Menstrual Age of Menarche: 12 Review of Systems Const All systems reviewed & are unremarkable except as noted in HPI and below Denies body aches, Denies chills, Denies fever(s) and Denies headache(s) Eyes Reports no additional complaints ENT Denies dysphagia, Denies otalgia, Reports facial pain, Denies headache(s), Denies nasal congestion, Reports sinus pain, Reports sinus pressure and Reports sore throat Card Denies chest pain and Denies dyspnea Resp Denies chest congestion, Denies cough and Denies dyspnea GI Denies dysphagia Musc Reports no additional complaints Skin/Breast Reports system reviewed and no additional complaints, except as documented Neuro Reports no additional complaints and Denies headache(s) Aller/Immun Reports no additional complaints Physical Exam Vital Signs: Last Vital Signs Temp 98.3 F 01/05/25 14:30 Pulse 92 01/05/25 14:30 BP 138/80 01/05/25 14:30 Pulse Ox 98 01/05/25 14:30 Oxygen Delivery Method Room Air 01/05/25 14:30 BMI result Body Mass Index 27.4 Const General: cooperative, comfortable, no acute distress, well developed, alert, awake and Physically active; No ill appearing Nutritional Appearance: average body habitus Orientation/consciousness: patient oriented x3 Limitations: no limitations HEENT Head: Yes normal to inspection and Yes normocephalic Ears: hearing grossly normal bilaterally, external ears normal, TM's abnormal bilaterally (TMs bulging bilaterally, very mild erythema L > R) and EAC's normal General nose exam: Normal external nose present Face and sinus: Yes sinus tenderness (maxillary L > R, no frontal sinus tenderness to palpation) Mouth: Normal oral and palatal mucosa present and oropharynx normal Throat: Yes posterior oropharynx normal, Yes postnasal drainage and No uvula laterally displaced Eyes General: appearance normal, both eyes and all related structures Neck Lymphatic: no lymphadenopathy noted Skin General skin exam: no rashes or lesions noted Neuro General: patient oriented x3 Psych Appearance: grossly normal Mental Status: mental status grossly normal Insight: Good insight present (Psych) Judgement: Good judgement present (Psych) Assessment & Plan Assessment & Plan (1) Acute bacterial sinusitis: Comment: Patient is afebrile but has been taking ibuprofen, last dose this afternoon. Patient's history coupled with her examination warrants antibacterial therapy. Code(s): J01.90 - Acute sinusitis, unspecified; B96.89 - Other specified bacterial agents as the cause of diseases classified elsewhere Plan: Amoxicillin 500 mg t.i.d. x7 days, Tylenol or ibuprofen as needed for discomfort. Follow up only as needed. Coding Level of Care Code Est Pt Level 3 (18805) Diagnoses Acute bacterial sinusitis J01.90; B96.89 Time Spent (min) 20
[2025-01-05 14:30] VITALS: BP 138/80; PULSE 92; TEMP 36.8; O2SAT 98; BMI 27.4
--- OUTSIDE RECORDS SUMMARY | 2025-01-05 21:25 | XMS_ITS | Encounter Summary ---
Author Organization [email or web address] Address [address] [place] [address] 7[address] [place] [address] Care Team Providers Care User Experience Designer Name Role Phone Name, Segundo PETE Primary Care Provider [phone] Encounter Details Date Type Department Care Team (Late st Contact Info) Description 06/18/2022 Orders Only [facility] [address] [place] [address] Sandra Headley, PharmD [address] [place] [address] Social History Tobacco Use Types Packs/Day Years [...] Description 02/01/2025 11:15 AM EST Office Visit [facility] [address] [place] [address] Name, MD Segundo [address] [place] [address] documented as of this encounter Visit Diagnoses Not on filedocumented in this encounter Additional Health Concerns Assessment Noted Time PHQ-9 Depression Total Score: 5 03/05/19 23 11:06 AM EST documented as of this encounter Care Teams User Experience Designer Relationship Specialty Start Date End Date Name, [place] [address] PCP - General Family Medicine 07/09/15 documented as of this encounter
--- OUTSIDE RECORDS SUMMARY | 2025-01-05 21:25 | XMS_ITS | Encounter Summary ---
Author Organization [employer] Address [address] [place] [address] 7t [place] [address] Care Team Providers Care Assistant Warehouse Manager Name Role Phone NameSegundo MD Primary Care Provider [phone] Reason for Visit * Reason Comments Med Change Request Encounter Details Date Type Department Care Team ([facility] st Contact Info) Description 09/21/2024 Refill [facility] [address] [place] [address] Name, MD Segundo [address] [place] [address] Chronic low back pain, unspecified back pain [...] Description 02/01/2025 11:15 AM EST Office Visit [facility] [address] [place] [address] NameSegundo MD [address] [place] [address] documented as of this encounter Visit Diagnoses Diagnosis Chronic low back pain, unspecified back pain laterality, unspecified whether sciatica present documented in this encounter Additional Health Concerns Assessment Noted Time PHQ-9 Depression Total Score: 9 08/29/19 25 11:21 AM EDT documented as of this encounter Care Teams Assistant Warehouse Manager Relationship Specialty Start Date End Date NameSegundo MD [address] [place] [address] PCP - General Family Medicine 07/09/15 documented as of this encounter
--- OUTSIDE RECORDS SUMMARY | 2025-01-05 21:25 | XMS_ITS | Encounter Summary ---
Author Organization [employer] Address [address] [place] [address] 7t [place] [address] Care Team Providers Care Exploration Engineer Name Role Phone Name, Segundo PETE Primary Care Provider [phone] Reason for Visit * Reason Onset Date Comments fyi 08/04/2024 Encounter Details Date Type Department Care Team ([facility] st Contact Info) Description 08/04/2024 Telephone [facility] [address] [place] [address] Name, MD Segundo [address] [place] [address] fyi Social History Tobacco Use Types Packs/Day [...] appointment notes that pt will need referralto case specialist due to eye screening that showed 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 Follow-up with PCP is recommended for referral to an case specialist. If any questions contact Cristina - [phone] documented in this encounter Plan of Treatment Upcoming Encounters Date Type Department Care Team (Late st Contact Info) Description 02/01/2025 11:15 AM EST Office Visit [facility] [address] [place] [address] Name, MD Segundo [address] [place] [address] documented as of this encounter Visit Diagnoses Not on filedocumented in this encounter Additional Health Concerns Assessment Noted Time PHQ-9 Depression Total Score: 0 09/22/19 24 3:22 PM EDT documented as of this encounter Care Teams Exploration Engineer Relationship Specialty Start Date End Date Name, [place] [address] PCP - General Family Medicine 07/09/15 documented as of this encounter
--- OUTSIDE RECORDS SUMMARY | 2025-01-05 21:25 | XMS_ITS | Encounter Summary ---
Author Organization [employer] Address [address] [place] [address] 7[address] [place] [address] Care Team Providers Care Track Mechanic Name Role Phone Name, Segundo PETE Primary Care Provider [phone] Sandra Headley PharmD Unavailable Reason for Visit * Reason Comments Med Refill Encounter Details Date Type Department Care Team (Late st Contact Info) Description 05/18/2022 Refill [facility] [address] [place], [place] [phone] Name, MD Segundo [address] [place], [place] [phone] Chronic low back pain, unspecified back pain [...] Description 02/01/2025 11:15 AM EST Office Visit [facility] [address] [place], [place] [phone] Name, MD Segundo [address] [place] [address] documented as of this encounter Visit Diagnoses Diagnosis Chronic low back pain, unspecified back pain laterality, unspecified whether sciatica present- Primary documented in this encounter Additional Health Concerns Assessment Noted Time PHQ-9 Depression Total Score: 5 03/05/19 23 11:06 AM EST documented as of this encounter Care Teams Track Mechanic Relationship Specialty Start Date End Date Name, MD Segundo [address] [place] [address] PCP - General Family Medicine 07/09/15 Sandra Headley PharmD [address] [place] [phone] Pharmacist Internal Medicine 08/19/21 06/17/22 documented as of this encounter
--- OUTSIDE RECORDS SUMMARY | 2025-01-05 21:25 | XMS_ITS | Clinical Summary ---
Author Organization [employer] Address [address] [place] [address] 7t [place] [address] Care Team Providers Care Health Policy Analyst Name Role Phone Name, Segundo PETE Primary Care Provider [phone] Allergies Active Allergy Reactions Criticality Noted Date [...] MENSTURAL PERIOD 90 tablet 02/04/20 24 Active atorvastatin (Lipitor) 20 MG tabletIndicatio ns:High cholesterol TAKE 1 TABLET BY MOUTH EVERY DAY 90 tablet 1 06/21/19 25 Active betamethasone dipropionate (Diprosone) 0.05 % ointment APPLY THIN COAT TO AREA TWICE A DAY 45 g 2 07/19/19 25 Active losartan (Cozaar) 25 MG tabletIndicatio ns:Primary hypertension TOME KOMAL TABLETA TODOS LOS ZAR[place] EN LA [facility] 90 tablet 3 08/29/19 25 Active baclofen [...] 30 tablet 11 08/29/19 25 2025 Active Fluocinolone Acetonide Scalp 0.01 % oil APPLY BY THIN LAYER TO DAMP SCALP MASSAGE WELL AND COVER LEAVE ON FOR 4 HOURS OR OVERNIGHT THEN WASH OFF USE IT FOR 5 DAYS THEN CUANDO SEA NECESARIO 118.28 mL 3 09/27/19 25 Active gabapentin (Neurontin) 800 MG tablet Take 1 tablet by mouth every 6 (six) hours during the day. 10/09/19 25 Active Senna-Time 8.6 MG tablet TAKE 1 TABLET (8.6 MG) BY MOUTH AT BEDTIME. 90 tablet 3 10/31/19 25 Active cetirizine (ZyrTEC) 10 MG tabletIndicatio ns:Seasonal allergies TAKE 1 TABLET BY MOUTH EVERY DAY 90 tablet 1 11/25/19 25 Active omeprazole (PriLOSEC) [address] capsuleIndicati ons:Heartburn TAKE 1 CAPSULE BY MOUTH EVERY DAY BEFORE BREAKFAST 90 capsule 12/07/19 25 Active naproxen (Naprosyn) 500 MG tabletIndicatio ns:Chronic migraine with aura without status migrainosus, not intractable TAKE 1 TABLET BY MOUTH TWICE A DAY 60 tablet 12/09/19 25 Active traMADol (Ultram) 50 MG tabletIndicatio ns:Chronic low back pain, unspecified back pain laterality, unspecified whether sciatica present TOME KOMAL TABLETA EN LA MANANA Y AL ACOSTARSE CUANDO SEA NECESARIO PARA EL DOLOR RAJINDER POR 28 ZARAGOZA 56 tablet 12/12/19 25 Active LORazepam (Ativan) 0.5 MG tablet One tab 15-30 minutes before flight 2 tablet 06/21/19 25 2024 Discontinued(T herapy completed) hydrOXYzine HCl (Atarax) 25 MG tabletIndicatio ns:Seasonal allergies TAKE 1 TABLET BY MOUTH DAILY IF NEEDED 90 tablet 06/27/19 25 2024 Discontinued(T herapy completed) traMADol (Ultram) 50 MG tabletIndicatio ns:Chronic low back pain, unspecified back pain laterality, unspecified whether sciatica present TOME KOMAL TABLETA EN LA MANANA Y AL ACOSTARSE CUANDO SEA NECESARIO PARA EL DOLOR RAJINDER POR 28 ZARAGOZA 56 tablet 10/18/19 25 2024 Discontinued naproxen (Naprosyn) 500 MG tabletIndicatio ns:Chronic migraine with aura without status migrainosus, not intractable TAKE 1 TABLET BY MOUTH TWICE A DAY 60 tablet 11/07/19 25 2024 Discontinued Active Problems Problem Noted [...] Encounters Date Type Department Care Team Description 12/14/2024 Telephone [facility] MEDICINE [address] [place] [address] Segundo Siddiqui MD Medication Question 12/11/2024 Refill [facility] [address] [place] [address] Segundo Siddiqui MD Chronic low back pain, unspecified back pain laterality, unspecified whether sciatica present 12/08/2024 Refill [facility] [address] [place] [address] Segundo Siddiqui MD Chronic migraine with aura without status migrainosus, not intractable 12/06/2024 Refill [facility] [address] [place] [address] Segundo Siddiqui MD Heartburn 11/24/2024 Refill [facility] [address] [place] [address] Segundo Siddiqui MD Seasonal allergies 11/15/2024 Telephone [facility] MED[facility] [address] [place] [address] Tre Monahan MA december recalls 11/08/2024 9:45 AM EDT Office Visit [facility] OPTOMETRY [address] [place] [address] Shanell Alexander, OD Presbyopia (Primary Dx) 11/08/2024 Travel 11/05/2024 Refill [facility] MEDICINE [address] [place] [address] NameSegundo MD Chronic migraine with aura without status migrainosus, not intractable 11/03/2024 Orders Only [facility] External Provider, [facility] 10/28/2024 Refill [facility] MEDICINE [address] [place], [place] [phone] Segundo Siddiqui MD 10/17/2024 1:30 PM EDT Office Visit [facility] [address] [place], [place] [phone] Montrell Rivas, DMD 10/16/2024 Refill [facility] MEDICINE [address] [place], [place] [phone] NameSegundo MD Chronic low back pain, unspecified back pain laterality, unspecified whether sciatica present from Last 3 Months Immunizations Immunization Administration Dates Next Due Influenza Injectable Quadriv alant Preservative Free IIV4 MDCK 01/06/2022 Influenza injectable quadriv alent IIV4 with preservative 11/25/2016,11/13/2015 Influenza injectable quadriv alent preservative free 02/01/2023,12/03/2020,02/19/2020,01/12 Influenza, IIV3, injectable 12/23/2012 Influenza, seasonal, injecta ble, preservative free 01/12/2024 Novel [id number], preservative-free 04/26/2009 PPD Test 06/23/2010 Pneumococcal Conjugate [...] is your housing situation today? I have starpiero tolbert 08/18/[address] you [...] Description 02/01/2025 11:15 AM EST Office Visit [facility] MEDICINE [address] [place] [address] Name, MD Segundo [address] [place] [address] Health Maintenance Due Date Last Done Comments CT Colonography 1970 FIT DNA/Cologuard 1970 FIT 1970 FOBT 1970 Sigmoidoscopy 1970 Dental X-Ray: Full Mouth 10/20/2017 10/19/2014 RSV Patients and Patients Aged 60 years or older (1 - Risk 50-74 years 1-dose series) 02/05/2020 Dental Oral Exam 08/15/2024 02/14/2024, , 09/09/2022, Additional history exists Dental Prophylaxis 08/15/2024 02/14/2024, 0 08/10/2023, 09/09/2022, Additional history exists Diabetes: Foot Exam 09/21/2024 09/22/2023, 09/22/2023, 09/22/2023, Additional history exists COVID-19 Vaccine ( season) 2024 05/08/2020 Influenza Vaccine (#1) 2024 4, 02/01/2023, 01/06/2022, Additional history exists Diabetes: Hemoglobin A1C 11/28/2024 072 025, 06/20/2024, 01/12/2024, Additional history exists Dental [...] - Td or Tdap) 09/04/2031 09/03/2021, 08/05/2009 Zoster Vaccines Completed 11/05/2021, 09/03/2021 Pneumococcal Vaccine: [...] complication, without long-term current use of insulin ([facility]) LIPID PANEL, STANDARD Routine 05/15/2024 11:35 AM EDT Type 2 diabetes mellitus with other specified complication, without long-term current use of insulin ([facility]) Primary hypertension High cholesterol ALBUMIN, RANDOM URINE W/CREATININE Routine 05/15/2024 11:30 AM EDT Type 2 diabetes mellitus with other specified complication, without long-term current use of insulin ([facility]) Primary hypertension High cholesterol PROPHYLAXIS - ADULT [...] AM EDT Narrative 11/03/2024 12:08 PM EDT [address] [address] Fluoroscopy Report Signed Patient: Jen Mai MR #: [id number] : 1970 Acct:[id number] Age/Sex: 54 / F ADM Date: 11/03/24 Loc: HO.[facility] Attending Dr: Arben Hanson MD Ordering Physician: Arben Hanson MD Date of Service: 11/03/24 Procedure(s): FL guidance in OR Accession Number(s): [id number] cc: Arben Hanson MD; Name,Segundo PETE Reason [...] 11/03/24 1205 DD/ 1132 TD/TT: 11/03/24 1146 Gas Prover: Procedure Note Donotuseinterpreter, Image - 11/03/[address] [address] Fluoroscopy Report Signed Patient: Jen Mai LMR #: [id number] : 1970Acct:[id number] Age/Sex: 54 / FADM Date: 11/03/24 Loc: HO.SS[facility] Attending Dr: Arben Hanson MD Ordering Physician: Arben Hanson MD Date of Service: 11/03/24 Procedure(s): FL guidance in OR Accession Number(s): [id number] cc: Arben Hanson MD; Name,Segundo PETE Reason [...] 11/03/24 1205 DD/ 1132 TD/TT: 11/03/24 1146 Gas Prover: [facility] External Provider IMG IR PROCEDURES Final Result * (ABNORMAL) Glucose, Whole Blood (11/03/2024 11:03 AM EDT) Glucose, Whole Blood 174(H) 60 - 115 mg/dL [facility] Comment:METER #: [id number] 11/03/2024 11:0 3 AM EDT 11/03/2024 11:07 AM EDT Generic External Data Provider LAB BLOOD ORDERAB LES Final Result [facility] [address] [place] [phone] * BI Mammogram Screening Tomosynthesis Bilateral (10/18/2024 1:11 PM EDT) Anatomical Region Laterality Modality Breast Bilateral Mammography 10/18/2024 1:11 PM EDT Narrative 10/21/2024 2:59 PM EDT [facility] [address] [place], [place] [address] Mammography Report Signed Patient: Jen Mai MR #: [id number] : 1970 Acct:[id number] Age/Sex: 54 / F ADM Date: 10/18/24 Loc: HO.MAMMO Attending Dr: Segundo Siddiqui MD Ordering Physician: Segundo Siddiqui MD Results: 2Benign Fi ndings Date of Service: 10/18/24 Follow Up: 1 Year From Orig ina Mammogram Procedure(s): MM tomosynthesis screening BI Accession Number(s): [id number] cc: Segundo Siddiqui MD EXAMINATION: MM SCREENING [...] 10/21/24 1455 DD/ 1311 TD/TT: 10/18/24 1334 Gas Prover: Procedure Note Donotuseinterpreter, Image - 10/21/2024 [facility] [address] [place] [address] Mammography Report Signed Patient: Jen Mai LMR #: [id number] : 1970Acct:[id number] Age/Sex: 54 / FADM Date: 10/18/24 Loc: HO.MAMMO Attending Dr: Segundo Siddiqui MD Ordering Physician: Segundo Siddiqui MDResults: 2Benign Fi ndings Date of Service: 10/18/24Follow Up: 1 Year From Orig inal Mammogram Procedure(s): MM tomosynthesis screening BI Accession Number(s): [id number] cc: Segundo Siddiqui MD EXAMINATION: MM SCREENING [...] 10/21/24 1455 DD/ 1311 TD/TT: 10/18/24 1334 Gas Prover: us Segundo Siddiqui MD IMG BI PROCEDURES [...] 11:35 AM EDT) Triglycerides 89 <150 mg/dL [facility] Comment:Desirable Triglyceri de: less than 150 mg/dLBorderline High Triglyceride 150-199 mg/dLHigh Triglyceride: 200-499 mg/dLVery High Triglyceride: greater than or equal to 5OO mg/dL Cholesterol 184 <200 mg/dL [facility] Comment:Desirable Cholestero l: less than 200 mg/dLBorderline High Cholesterol: 200-239 mg/dLHigh Cholesterol: greater than 239 mg/dL LDL Cholesterol Calculated 120(H) <100 mg/dL [facility] Comment:Desirable LDL: less than 100 mg/dLNear Optimal/Above Optimal LDL: 110- 129 mg/dLBorderline High LDL: 130-159 mg/dLHigh LDL: 160-189 mg/dLVery High LDL: greater than or equal to 190 mg/dL HDL Cholesterol 47 >40 mg/dL [facility] Comment:Desirable HDL: great er than 40 mg/dL Note: This HDL assay may give artificially low results in patients with liver disease. Blood Venous blood specimen / Unknown 05/15/2024 11:35 AM EDT 05/15/2024 1:44 PM EDT us Segundo Siddiqui MD LAB BLOOD ORDERABLES Final Resul t Performing Organization Address [facility] de Phone Number [facility] [address] [place] [phone] * Albumin, Random Urine W/Creatinine (05/15/2024 11:30 AM EDT) Creatinine, Urine 171.56 mg/dL [facility] Microalbumin Urine 48.0 mg/L [facility] Microalbum Creatinine Ratio Ur 27.9 <30 ug/mg cr [facility] Comment:Albumin/Creatinine R atio Reference Ranges: Normal: < 30 ug/mg creatinine Microalbuminuria: 30 - 300 ug/mg creatinineClinical Albuminuria: > 300 ug/mg creatinine Urine (Urine, Random) 05/15/2024 11:30 AM EDT 05/15/2024 1:09 PM EDT us Segundo Siddiqui MD LAB URINE ORDERABLES Final Resul t Performing Organization Address [facility] Co de Phone Number [facility] [address] [place] [phone] * Colonoscopy (11/14/2021 10:32 AM EDT) Colonoscopy Normal Normal Narrative Surekha Lo - 11/14/2021 10:32 AM EDT Recommended 5 year follow up Historical [facility] Final Result * Pap Smear (05/28/2021) Pap Negative for intraephithelial lesion or malignancy Negative for intraephithelial lesion or malignancy, Other HPV Undetected 05/28/2021 Historical [facility] Final Result from Last 3 Months or Most Recently Relevant to Health Maintenance Insurance [facility] MEDICARE ADVANTAGE HMO [facility] Care Teams Health Policy Analyst Relationship Specialty Start Date End Date Name, MD Segundo [address] [place] [address] [phone] PCP - General Family Medicine 07/09/15
--- OUTSIDE RECORDS SUMMARY | 2025-01-05 21:25 | XMS_ITS | Encounter Summary ---
Author Organization [employer] Address [address] [place] [address] 7t [place] [address] Care Team Providers Care Passenger Brakeman Name Role Phone Name, Segundo PETE Primary Care Provider [phone] Sandra Headley PharmD Unavailable [phone] Encounter Details Date Type Department Care Team (Latest Contact Info) Description 04/04/2020 Abstract [facility] CONVERSIONS Dental, Provider, DDS Social History [...] AM EST Office Visit [facility] MEDICINE [address] [place] [address] NameSegundo MD [address] [place] [address] documented as of this encounter Visit Diagnoses Not on filedocumented in this encounter Care Teams Passenger Brakeman Relationship Specialty Start Date End Date NameSegundo MD [address] [place] [address] PCP - General Family Medicine 07/09/15 Sandra Headley, VirgenD [address] [place] [phone] Pharmacist Internal Medicine 08/19/21 06/17/22 documented as of this encounter
--- OUTSIDE RECORDS SUMMARY | 2025-01-05 21:25 | XMS_ITS | Encounter Summary ---
Author Organization [employer] Address [address] [place] [address] 7t [place] [address] Care Team Providers Care Plc Technician Name Role Phone NameSegundo MD Primary Care Provider [phone] Sandra Headley PharmD Unavailable Reason for Visit * Reason Comments Med Refill Encounter Details Date Type Department Care Team (Late st Contact Info) Description 04/15/2022 Refill [facility] MEDICINE [address] [place] [address] Segundo Siddiqui MD [address] [place], [place] [phone] Exacerbation of chronic back pain; Radicular syndrome [...] 11:15 AM EST Office Visit [facility] MEDICINE [address] [place] [address] NameSegundo MD [address] [place] [address] documented as of this encounter Visit Diagnoses Diagnosis Exacerbation of chronic back pain Radicular syndrome of right leg documented in this encounter Additional Health Concerns Assessment Noted Time PHQ-9 Depression Total Score: 5 03/05/19 23 11:06 AM EST documented as of this encounter Care Teams Plc Technician Relationship Specialty Start Date End Date Name, MD Segundo [address] [place] [phone] PCP - General Family Medicine 07/09/15 Sandra Headley PharmD [address] [place] [phone] Pharmacist Internal Medicine 08/19/21 06/17/22 documented as of this encounter
--- OUTSIDE RECORDS SUMMARY | 2025-01-05 21:25 | XMS_ITS | Encounter Summary ---
Author Organization [employer] Address [address] [place] [address] [address]t [place] [address] Care Team Providers Care Angle Bender Name Role Phone Name, Segundo PETE Primary Care Provider [phone] Sandra Headley PharmD Unavailable Encounter Details Date Type Department Care Team (Latest Contact Info) Description 08/29/2021 Abstract [facility] CONVERSIONS Dental, Provider, DDS Social [...] 02/01/2025 11:15 AM EST Office Visit [facility] MEDICINE [address] [place] [address] NameSegundo MD [address] [place] [address] documented as of this encounter Visit Diagnoses Not on filedocumented in this encounter Care Teams Angle Bender Relationship Specialty Start Date End Date NameSegundo MD [address] [place] [address] PCP - General Family Medicine 07/09/15 Sandra Headley, VirgenD [address] [place] [phone] Pharmacist Internal Medicine 08/19/21 06/17/22 documented as of this encounter
--- OUTSIDE RECORDS SUMMARY | 2025-01-05 21:26 | XMS_ITS | Encounter Summary ---
Author Organization [employer] Address [address] [place] [address] 7t [place] [address] Care Team Providers Care Tool And Production Planner Name Role Phone Name, Segundo PETE Primary Care Provider [phone] Sandra Headley PharmD Unavailable [phone] Encounter Details Date Type Department Care Team (Latest Contact Info) Description 04/13/2018 Abstract [facility] CONVERSIONS Dental, Provider, DDS Social [...] Description 02/01/2025 11:15 AM EST Office Visit [facility] MEDICINE [address] [place] [address] NameSegundo MD [address] [place] [address] documented as of this encounter Visit Diagnoses Not on filedocumented in this encounter Care Teams Tool And Production Planner Relationship Specialty Start Date End Date NameSegundo MD [address] [place] [address] PCP - General Family Medicine 07/09/15 Sandra Headley, VirgenD [address] [place] [phone] Pharmacist Internal Medicine 08/19/21 06/17/22 documented as of this encounter
--- OUTSIDE RECORDS SUMMARY | 2025-01-05 21:26 | XMS_ITS | Encounter Summary ---
Author Organization [employer] Address [address] [place] [address] 7t [place] [address] Care Team Providers Care Amphibian Crewmember Name Role Phone Name, Segundo PETE Primary Care Provider [phone] Sandra Headley PharmD Unavailable [phone] Reason for Visit * Reason Comments Med Refill Encounter Details Date Type Department Care Team (Late st Contact Info) Description 03/16/[address] [facility] MEDICINE [address] [place], [place] [phone] Name, MD Segundo [address] [place], [place] [phone] Exacerbation of chronic back pain; Radicular syndrome [...] 11:15 AM EST Office Visit [facility] MEDICINE [address] [facility] [place] [address] Name, [place] [address] documented as of this encounter Visit Diagnoses Diagnosis Exacerbation of chronic back pain Radicular syndrome of right leg documented in this encounter Additional Health Concerns Assessment Noted Time PHQ-9 Depression Total Score: 5 03/05/19 11:06 AM EST documented as of this encounter Care Teams Amphibian Crewmember Relationship Specialty Start Date End Date Name, MD Segundo Jameel [facility] [place] [address] PCP - General Family Medicine 07/09/15 Sandra Headley PharmD [address] [place] [phone] Pharmacist Internal Medicine 08/19/21 06/17/22 documented as of this encounter
--- OUTSIDE RECORDS SUMMARY | 2025-01-05 21:26 | XMS_ITS | Encounter Summary ---
Author Organization [employer] Address [address] [place] [address] 7t [place] [address] Care Team Providers Care Regulatory Consultant Name Role Phone Name, Segundo PETE Primary Care Provider [phone] Reason for Visit * Reason Comments Med Refill Encounter Details Date Type Department Care Team (Late st Contact Info) Description 03/04/2023 Refill [facility] MEDICINE [address] [place] [address] Natalie Love FNP [address] [place] [address] Migraine without status migrainosus, not intractable, unspecified [...] Description 02/01/2025 11:15 AM EST Office Visit [facility] MEDICINE [address] [place] [phone] Name, MD Segundo [address] [place] [address] documented as of this encounter Visit Diagnoses Diagnosis Migraine without status migrainosus, not intractable, unspecified migraine type documented in this encounter Additional Health Concerns Assessment Noted Time PHQ-9 Depression Total Score: 5 03/05/19 23 11:06 AM EST documented as of this encounter Care Teams Regulatory Consultant Relationship Specialty Start Date End Date Name, MD Segundo [address] [place] [address] PCP - General Family Medicine 07/09/15 documented as of this encounter
--- OUTSIDE RECORDS SUMMARY | 2025-01-05 21:26 | XMS_ITS | Encounter Summary ---
Author Organization [employer] Address [address] [place] [address] 7t [place] [address] Care Team Providers Care Deputy Sheriff Lieutenant Name Role Phone Name, Segundo PETE Primary Care Provider [phone] Reason for Visit * Reason Comments Med Refill Encounter Details Date Type Department Care Team (Late st Contact Info) Description 05/19/2023 Refill [facility] MEDICINE [address] [place] [address] Name, MD Segundo [address] [place] [address] Chronic low back pain, unspecified back pain [...] T/C to pt for status check via [facility] #[id number]. No answer, v/m left to return call to [place] team nurses. documented in this encounter Plan of Treatment Upcoming Encounters Date Type Department Care Team (Late st Contact Info) Description 02/01/2025 11:15 AM EST Office Visit [facility] MEDICINE [address] [place] [address] NameSegundo MD [address] [place] [address] documented as of this encounter Visit Diagnoses Diagnosis Chronic low back pain, unspecified back pain laterality, unspecified whether sciatica present documented in this encounter Additional Health Concerns Assessment Noted Time PHQ-9 Depression Total Score: 5 03/05/19 23 11:06 AM EST documented as of this encounter Care Teams Deputy Sheriff Lieutenant Relationship Specialty Start Date End Date Name, MD Segundo [address] [place] [phone] PCP - General Family Medicine 07/09/15 documented as of this encounter
--- OUTSIDE RECORDS SUMMARY | 2025-01-05 21:26 | XMS_ITS | Clinical Summary ---
Author Organization [facility] Address [address] [place] [address] Care Team Providers Care Publicity Director Name Role Phone Unavailable Primary Care Provider Unavailabl e Surgical History Surgery Date Site/Laterality Comments SECTION PROCEDURE: [place] DELIVERY ONLY; COMMENT: X2 TUBAL LIGATION PROCEDURE: [...] Depression Screening 02/23/2024 COVID-19 Vaccine (1 - 2024-2 6 season) 2024 Influenza Vaccine (#1) 2024 3, [...]
--- OUTSIDE RECORDS SUMMARY | 2025-01-05 21:26 | XMS_ITS | Encounter Summary ---
Author Organization [employer] Address [address] [place] [address] 7t [place] [address] Care Team Providers Care Clinical Fellow Name Role Phone Name, Segundo PETE Primary Care Provider [phone] Reason for Visit * Reason Onset Date Comments Med Refill 03/08/2024 Encounter Details Date Type Department Care Team (Late st Contact Info) Description 03/08/2024 Telephone [facility] MEDICINE [address] [place] [address] Name, MD Segundo [address] [place] [address] Med Refill Social History Tobacco Use Types [...] 1:56 PM EST Script was sent to [id number] on 01/06/24 with 11 refills. * Telephone Encounter - Nora Basurto - 03/08/2024 12:39 PM EST TC from pt requesting medication refill. Medications needing refill : OneTouch Verio test strip To be sent to: [facility]/pharmacy #[id number] documented in this encounter Plan of Treatment Upcoming Encounters Date Type Department Care Team ([facility] st Contact Info) Description 02/01/2025 11:15 AM EST Office Visit [facility] MEDICINE [address] [place] [address] Name, MD Segundo [address] [place] [address] documented as of this encounter Visit Diagnoses Not on filedocumented in this encounter Additional Health Concerns Assessment Noted Time PHQ-9 Depression Total Score: 0 09/22/19 24 3:22 PM EDT documented as of this encounter Care Teams Clinical Fellow Relationship Specialty Start Date End Date Name, MD Segundo [address] [place] [address] PCP - General Family Medicine 07/09/15 documented as of this encounter
--- OUTSIDE RECORDS SUMMARY | 2025-01-05 21:26 | XMS_ITS | Encounter Summary ---
Author Organization [employer] Address [address] [place] [address] 7t [place] [address] Care Team Providers Care Hospital Nurse Name Role Phone NameSegundo MD Primary Care Provider [phone] Reason for Visit * Reason Comments Med Refill Encounter Details Date Type Department Care Team (Late st Contact Info) Description 05/07/2024 Refill [facility] [address] [place] [address] Name, MD Segundo [address] [place] [address] Social History Tobacco Use Types Packs/Day Years [...] Office Visit [facility] [address] [place] [address] NameSegundo MD [address] [place] [phone] documented as of this encounter Visit Diagnoses Not on filedocumented in this encounter Additional Health Concerns Assessment Noted Time PHQ-9 Depression Total Score: 0 09/22/19 24 3:22 PM EDT documented as of this encounter Care Teams Hospital Nurse Relationship Specialty Start Date End Date NameSegundo MD [address] [place] [address] PCP - General Family Medicine 07/09/15 documented as of this encounter
--- OUTSIDE RECORDS SUMMARY | 2025-01-05 21:27 | XMS_ITS | Encounter Summary ---
Author Organization [employer] Address [address] [place] [address] 7t [place] [address] Care Team Providers Care Material Control Manager Name Role Phone NameSegundo MD Primary Care Provider [phone] Reason for Visit * Reason Comments Med Refill Encounter Details Date Type Department Care Team (Late st Contact Info) Description 08/30/2022 Refill [facility] [address] [place] [address] Segundo Siddiqui MD [address] [place] [phone] High cholesterol; Exacerbation of chronic back pain; [...] 02/01/2025 11:15 AM EST Office Visit [facility] [address] [place], [place] [phone] Segundo Siddiqui MD [address] [place] [address] [phone] documented as of this encounter Visit Diagnoses Diagnosis High cholesterol Pure hypercholesterolemia Exacerbation of chronic back pain Radicular syndrome of right leg documented in this encounter Additional Health Concerns Assessment Noted Time PHQ-9 Depression Total Score: 5 03/05/19 23 11:06 AM EST documented as of this encounter Care Teams Material Control Manager Relationship Specialty Start Date End Date Name, MD Segundo [address] [facility] [place] [address] PCP - General Family Medicine 07/09/15 documented as of this encounter
--- OUTSIDE RECORDS SUMMARY | 2025-01-05 21:27 | XMS_ITS | Encounter Summary ---
Author Organization [employer] Address [address] [place] [address] 7 [place] [address] Care Team Providers Care Account Collector Name Role Phone NameSegundo MD Primary Care Provider Encounter Details Date Type Department Care Team (Late st Contact Info) Description 08/04/2022 Abstract [facility] [address] [place] [phone] NameSegundo MD [address] [place] [address] Social History Tobacco Use Types Packs/Day Years [...] Visit [facility] [address] [place] [address] Segundo Siddiqui MD [address] [place] [address] documented as of this encounter Procedures Procedure [...] as of this encounter Care Teams Account Collector Relationship Specialty Start Date End Date Name, MD Segundo [address] [place] [address] PCP - General Family Medicine 07/09/15 documented as of this encounter
--- OUTSIDE RECORDS SUMMARY | 2025-01-05 21:27 | XMS_ITS | Encounter Summary ---
Author Organization [employer] Address [address] [place] [address] 7t [place] [address] Care Team Providers Care Livery Car Driver Name Role Phone NameSegundo MD Primary Care Provider [phone] Reason for Visit * Reason Comments Med Refill Encounter Details Date Type Department Care Team (Late st Contact Info) Description 10/22/2022 Refill [facility] [address] [place] [address] Segundo Siddiqui MD [address] [place] [address] Exacerbation of chronic back pain; Radicular syndrome [...] Description 02/01/2025 11:15 AM EST Office Visit [facility] [address] [place] [address] Segundo Siddiqui, MD [address] [place] [address] documented as of this encounter Visit Diagnoses Diagnosis Exacerbation of chronic back pain Radicular syndrome of right leg documented in this encounter Additional Health Concerns Assessment Noted Time PHQ-9 Depression Total Score: 5 03/05/19 23 11:06 AM EST documented as of this encounter Care Teams Livery Car Driver Relationship Specialty Start Date End Date Name, MD Segundo [address] [place] [address] PCP - General Family Medicine 07/09/15 documented as of this encounter
--- OUTSIDE RECORDS SUMMARY | 2025-01-05 21:27 | XMS_ITS | Encounter Summary ---
Author Organization [employer] Address [address] [place] [address] 7t [place] [address] Care Team Providers Care Credit Office Manager Name Role Phone Name, Segundo PEET Primary Care Provider [phone] Reason for Visit * Reason Onset Date Comments Appointment Request 01/07/2023 Encounter Details Date Type Department Care Team ([facility] st Contact Info) Description 01/07/[address] [facility] [address] [place] [address] Name, MD Segundo [address] [place] [address] Appointment Request Social History Tobacco Use Types [...] stating that See her every 3 months. 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 PCP Name documented in this encounter Plan of Treatment Upcoming Encounters Date Type Department Care Team (Late st Contact Info) Description 02/01/2025 11:15 AM EST Office Visit [facility] [address] [place] [address] Name, MD Segundo [address] [place] [address] documented as of this encounter Visit Diagnoses Not on filedocumented in this encounter Additional Health Concerns Assessment Noted Time PHQ-9 Depression Total Score: 5 03/05/19 23 11:06 AM EST documented as of this encounter Care Teams Credit Office Manager Relationship Specialty Start Date End Date Name, MD Segundo [address] [place] [address] PCP - General Family Medicine 07/09/15 documented as of this encounter
--- OUTSIDE RECORDS SUMMARY | 2025-01-05 21:27 | XMS_ITS | Encounter Summary ---
Author Organization [employer] Address [address] [place] [address] 7 [place] [address] Care Team Providers Care Under Water Assistant Name Role Phone Name, Segundo PETE Primary Care Provider [phone] Reason for Visit * Reason Comments Med Refill Encounter Details Date Type Department Care Team (Late st Contact Info) Description 08/30/2022 Refill [facility] [address] [place] [address] Rajwinder Stevens, INFORMATION SYSTEMS SUPERVISOR [address] [place] [address] Heartburn Social History Tobacco Use Types Packs/Day [...] Description 02/01/2025 11:15 AM EST Office Visit [facility] [address] [place] [address] Name, MD Segundo [address] [place] [address] documented as of this encounter Visit Diagnoses Diagnosis Heartburn documented in this encounter Additional Health Concerns Assessment Noted Time PHQ-9 Depression Total Score: 5 03/05/19 23 11:06 AM EST documented as of this encounter Care Teams Under Water Assistant Relationship Specialty Start Date End Date Name, MD Segundo [address] [place] [address] PCP - General Family Medicine 07/09/15 documented as of this encounter
--- OUTSIDE RECORDS SUMMARY | 2025-01-05 21:27 | XMS_ITS | Encounter Summary ---
Author Organization [employer] Address [address] [place] [address] 7 [place] [address] Care Team Providers Care Shade Cloth Finisher Name Role Phone NameSegundo MD Primary Care Provider [phone] Reason for Visit * Reason Comments Med Refill Encounter Details Date Type Department Care Team (Late st Contact Info) Description 08/07/2022 Refill [facility] [address] [place] [address] Segundo Siddiqui MD [address] [place], [place] [phone] Social History Tobacco Use Types Packs/Day Years [...] Description 02/01/2025 11:15 AM EST Office Visit [facility] [address] [place], [place] [phone] Segundo Siddiqui MD [address] [place], [place] [phone] documented as of this encounter Visit Diagnoses Not on filedocumented in this encounter Additional Health Concerns Assessment Noted Time PHQ-9 Depression Total Score: 5 03/05/19 23 11:06 AM EST documented as of this encounter Care Teams Shade Cloth Finisher Relationship Specialty Start Date End Date Name, MD Segundo [address] [place] [address] PCP - General Family Medicine 07/09/15 documented as of this encounter
--- OUTSIDE RECORDS SUMMARY | 2025-01-05 21:27 | XMS_ITS | Encounter Summary ---
Author Organization [email or web address] Address [address] [place] [address] 7t [place] [address] Care Team Providers Care Mellowing Machine Operator Name Role Phone NameSegundo MD Primary Care Provider [phone] Reason for Visit * Reason Comments Med Refill Encounter Details Date Type Department Care Team ([facility] st Contact Info) Description 01/07/2023 Refill [facility] [address] [place] [address] Name, MD Segundo [address] [place] [address] Social History Tobacco Use Types Packs/Day Years [...] 02/01/2025 11:15 AM EST Office Visit [facility] [address] [place] [address] Name, MD Segundo [address] [place] [address] documented as of this encounter Visit Diagnoses Not on filedocumented in this encounter Additional Health Concerns Assessment Noted Time PHQ-9 Depression Total Score: 5 03/05/19 23 11:06 AM EST documented as of this encounter Care Teams Mellowing Machine Operator Relationship Specialty Start Date End Date Name, MD Segundo [address] [place] [address] PCP - General Family Medicine 07/09/15 documented as of this encounter
--- OUTSIDE RECORDS SUMMARY | 2025-01-05 21:27 | XMS_ITS | Encounter Summary ---
Author Organization [employer] Address [address] [place] [address] 7t [place] [address] Care Team Providers Care Cloth Shrinking Tester Name Role Phone Name, Segundo PETE Primary Care Provider Reason for Visit * Reason Comments Med Refill Encounter Details Date Type Department Care Team ([facility] st Contact Info) Description 12/14/2022 Refill [facility] [address] [place] [address] Rajwinder Stevens, CONTRACT ASSOCIATE [address] [place] [address] Chronic pain syndrome Social History Tobacco Use [...] 11:15 AM EST Office Visit [facility] [address] [place] [address] Name, MD Segundo [address] [place] [address] documented as of this encounter Visit Diagnoses Diagnosis Chronic pain syndrome documented in this encounter Additional Health Concerns Assessment Noted Time PHQ-9 Depression Total Score: 5 03/05/19 23 11:06 AM EST documented as of this encounter Care Teams Cloth Shrinking Tester Relationship Specialty Start Date End Date NameSegundo MD [address] [place] [address] PCP - General Family Medicine 07/09/15 documented as of this encounter
== END 2025-01-05 14:52 | disposition home or self-care (01) ==
PROVIDERS: PCP Internal Medicine Geriatric Medicine; Visit Provider Physician Assistant
DX: J01.90 Acute sinusitis, unspecified (principal); B96.89 Other specified bacterial agents as the cause of diseases classified elsewhere

== ENCOUNTER → 2025-01-05 14:27 | Outpatient (BNVA) | payer MEDICARE, MEDICAID, SELFPAY | PROVIDERS: PCP Internal Medicine Geriatric Medicine; Visit Provider Physician Assistant | DX: J01.90 Acute sinusitis, unspecified (principal); B96.89 Other specified bacterial agents as the cause of diseases classified elsewhere | CPT/HCPCS: 99212 ==

== ENCOUNTER 2025-02-08 12:42 | Outpatient (AMB) | payer MEDICARE, MEDICAID, SELFPAY ==
--- NOTE | 2025-02-08 13:06 | A.OFFVIS_ITS ---
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 Her injection was performed 3 months ago. She still reports 75% pain improvement. She was instructed today if her pain will become stronger to give us a call and we will schedule yet another bilateral sacroiliac joint steroid injections. The patient is very satisfied with injection. Explained to the patient that I would like to see how long the pain relief will last. I will see this patient in 2 months. If her pain relief at this time is still lasting we could consider performing yet another bilateral sacroiliac joint injection. However if pain is coming back SI joint fusion versus SI joint innervation stimulation could be discussed. Prior: She reports continued pain in the lower back. The x-ray of the lumbar spine remarkably no unimpressive. On physical exam there are still signs of sacroiliac joint problems on the right. In the past she received diagnostic sacroiliac joint innervation injection which gave her pain relief for 3 months. I offered her today to go for aquatic sacroiliac joint injection, she insists on having this procedure under general anesthesia. I will schedule her accordingly. As of her left hip pain her x-ray of the left hip is almost completely normal. I will send her for physical therapy for the left hip pain. Prior: returned to my office after more than 1 year of absence. She continues to complain on pain in the right hip joint however last time 1 year ago x-ray of the right hip joint demonstrated only cam deformity and not much of the hip arthritis. There were also not much of the changes in projection of the trochanteric bursa. And yet patient is convinced that she has pain she experiences coming from the hip joint. History of the sacroiliac joint problem is described as below. I sent her on her insistence to the another right hip x- ray and we are still waiting for official report. I examined that x-ray myself and did not find any major changes which would be evident of arthritis. She also reported today pain in the projection of the mid axillary line ?where my bra strap is. ?Most likely this is muscular spasm. I decided to send her for physical therapy and started her on baclofen. She adamantly refused to go for physical therapy but she agreed to start baclofen. The prescription of the baclofen see as below. We agreed that I will see her in 3 weeks probably by then the x-ray reading will be ready. Prior: SIJ innervation diagnostic injection was performed for her in the past twice.?? in the past she was a subject of trial of the peripheral nerve stimulation stim wave and got good results however refused to go for implantation and instead requested to perform diagnostic injection again.? ? She had the trial of sacroiliac joint innervation peripheral nerve stimulation stim wave.? She reported pain relieve from 9/10 to 2/10 while being stimulated however she is not very eager to have implant of the device.? She was asking me about other options.? I explained to her about radiofrequency ablation of the sacroiliac joint innervation as well as potential sacroiliac joint fusion. She had SI joint innervation injection with very good results of 100% pain relief for for 6 hours and following several days of 80% pain relieve. Prior:? History of? lower back pain.? She has a 30 year history of lower back pain, without any inciting events. She denies surgical spinal procedures She describes a pressure in her lower back with stinging and burning radiation down lateral right leg, extending to lateral ankle. She was treated previously for this at [facility] with PT and what sounds to be ESIs. She states PT did not help, and injections only helped for about a month each, with side effect of hyperglycemia.? She is very brittle diabetic. She was sent for an MRI by Ms. Eli.? The report of the MRI is as below.? She had PT without success and she is taking gabapentin without significant pain relief. The possibility to treat this patient with different approaches as above was discussed again today [facility] Medical History Arthritis Diverticulosis Diabetes GERD (gastroesophageal reflux disease) Asthma Anxiety Vertigo Migraine with aura Endometrioma of ovary Chronic pain syndrome Sacroiliitis Low back pain Spondylosis of lumbosacral spine without myelopathy Surgical History Hx of colonoscopy S/P placement of nerve stimulator History of esophagogastroduodenoscopy (EGD) Hx of tubal ligation Hx of section Family History Maternal Aunt Breast cancer Social History Household Members: Significant Other and Family Are you a primary senior care provider to a significant other at home: No Do you presently have visiting nurse or other home services: No Alcohol intake: never Patient Tobacco Use Status: Former Tobacco user Tobacco use type: Cigarette Female Reproductive History Menstrual Age of Menarche: 12 Review of Systems Const All systems reviewed & are unremarkable except as noted in HPI and below Neuro Denies Sensory deficit (Neuro) Physical Exam Vital Signs: Last Vital Signs Pulse 88 02/08/25 13:07 Resp 16 02/08/25 13:07 BP 152/69 H 02/08/25 13:07 Pulse Ox 97 02/08/25 13:07 Oxygen Delivery Method Room Air 02/08/25 13:07 BMI result Body Mass Index 27.4 Const General: cooperative, healthy appearing, comfortable and no acute distress Eyes EOM: EOMs intact bilaterally Chest Chest palpation & inspection: normal inspection of the chest Resp Effort & Inspection: normal respiratory effort, able to speak in complete sentences, normal respiratory pattern, no audible wheezes and no cough Cardio Jugular venous distension: no JVD Back/Spine/Pelvis Other: tenderness on palpation in paraspinal spinal region in lumbar spine. S special tenderness noted in the projection of the right sacroiliac joint. Ari test is positive. Pelvic compression test is positive. Gaenslen test is positive on the right Rebel finger test is positive. Loading test is positive. Range of motion in lumbar spine is preserved. . Neuro Sensory Exam: No Sensory deficit (Neuro) Extrem Other: Lateral rotation of the left hip causes severe discomfort in the groin. Psych Attitude: cooperative Assessment & Plan Assessment & Plan (1) Arthritis of right hip: Code(s): M16.11 - Unilateral primary osteoarthritis, right hip Category: Medical (2) Left hip pain: Code(s): M25.552 - Pain in left hip Category: Medical (3) Sacroiliitis: Code(s): M46.1 - Sacroiliitis, not elsewhere classified Category: Medical (4) Sacroiliac joint dysfunction of right side: Code(s): M53.3 - Sacrococcygeal disorders, not elsewhere classified Category: Medical Plan Diagnostic sacroiliac joint injections in the past as well as sacroiliac joint innervation injection in the past demonstrated that the pain of the patient is coming from sacroiliitis. Excellent results of therapeutic sacroiliac joint injection 100% pain relief 1 month after the injection. Today 3 months of the injection she still reports 75% pain improvement with minimal pain exacerbation from time to time. She is recommended to give us a call when her pain will become stronger. We will perform another intra-articular bilateral sacroiliac joint injection. Coding Level of Care Code Est Pt Level 3 (37853) Diagnoses Arthritis of right hip M16.11 Left hip pain M25.552 Sacroiliitis M46.1 Sacroiliac joint dysfunction of right side M53.3
[2025-02-08 13:07] VITALS: BP 152/69; PULSE 88; RESP 16; O2SAT 97; BMI 27.4
--- OUTSIDE RECORDS SUMMARY | 2025-02-08 16:32 | XMS_ITS | Clinical Summary ---
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
== END 2025-02-08 13:40 | disposition home or self-care (01) ==
LOC: HO.PMC 12:42
PROVIDERS: PCP Internal Medicine Geriatric Medicine; Visit Provider Anesthesiology
DX: M16.11 Unilateral primary osteoarthritis, right hip (principal); M25.552 Pain in left hip; M46.1 Sacroiliitis, not elsewhere classified; M53.3 Sacrococcygeal disorders, not elsewhere classified
CPT/HCPCS: 99213

== ENCOUNTER → 2025-02-08 12:42 | Outpatient (BNVA) | payer MEDICARE, MEDICAID, SELFPAY | PROVIDERS: PCP Internal Medicine Geriatric Medicine; Visit Provider Anesthesiology | DX: M16.11 Unilateral primary osteoarthritis, right hip (principal); M46.1 Sacroiliitis, not elsewhere classified; M25.552 Pain in left hip; M53.3 Sacrococcygeal disorders, not elsewhere classified | CPT/HCPCS: 99212 ==